=== PATIENT | female | born 1940 | race Caucasian/White ===

== ENCOUNTER → 2018-10-06 | Outpatient (REF) | payer MEDICARE, BC, SELFPAY ==
[2018-10-06 08:01] LABS: Hematocrit 29.8 % (37-47); Hemoglobin 9.9 g/dl (12.0-15.0); Mean Corp Hgb Conc 33.2 g/gl (32-36); Mean Corpuscular Volume 102.4 fL (81-99); Mean Platelet Vol. 8.3 fl (6.2-12.0); Platelet Count 419 K/mm3 (150-450); RBC Distribution Width CV 13.9 % (11.6-14.6); RBC Distribution Width SD 49.8 fl (35.1-43.9); Red Blood Count 2.91 M/mm3 (4.2-5.4); White Blood Count 5.1 K/mm3 (4.4-11.0)
[2018-10-06 08:16] LABS: Scan Indicated on CBC? Y/N NO
== END | disposition home or self-care (01) ==
PROVIDERS: Visit Provider Family Medicine
DX: Z79.899 Other long term (current) drug therapy (principal)
CPT/HCPCS: 36415; 85027

== ENCOUNTER → 2018-11-04 | Outpatient (REF) | payer MEDICARE, BC, SELFPAY ==
[2018-11-04 11:19] LABS: Hematocrit 39.5 % (37-47); Hemoglobin 12.8 g/dL (12.0-15.0); Mean Corp Hgb Conc 32.4 g/dL (32-36); Mean Corpuscular Hgb 33.8 pg (27.0-32.0); Mean Corpuscular Volume 104.2 fL (81-99); Mean Platelet Vol. 9.2 fl (6.2-12.0); Platelet Count 332 K/mm3 (150-450); RBC Distribution Width CV 12.2 % (11.6-14.6); RBC Distribution Width SD 47.1 fl (35.1-43.9); Red Blood Count 3.79 M/mm3 (4.2-5.4); White Blood Count 4.6 K/mm3 (4.4-11.0)
== END | disposition home or self-care (01) ==
PROVIDERS: Visit Provider Family Medicine
DX: Z79.899 Other long term (current) drug therapy (principal)
CPT/HCPCS: 36415; 85027

== ENCOUNTER 2018-11-07 00:18 | Emergency (ER) | payer MEDICARE, BC, SELFPAY ==
[2018-11-07 00:19] VITALS: BP 150/75; PULSE 71; RESP 20; TEMP 36.5; O2SAT 98; BMI 20.9
[2018-11-07] MEDS: Nitroglycerin SL (ED/IMG/CATH) 0.4 MG TABLET SUBLINGUAL (00:30)
--- NOTE | 2018-11-07 00:30 | EKG12_ITS ---
Test Reason : CP Blood Pressure : / mmHG Vent. Rate : 072 BPM Atrial Rate : 072 BPM P-R Int : 150 ms QRS Dur : 084 ms QT Int : 392 ms P-R-T Axes : 073 064 071 degrees QTc Int : 429 ms Normal sinus rhythm Voltage criteria for left ventricular hypertrophy Nonspecific ST abnormality Abnormal ECG Confirmed by JOHN LOCKETT, ALVARO ([id number]), senior technical editor VANNESA AVERY ([id number]) on 11/09/2018 10:43:35 AM Referred By: ANEESH Confirmed By:ALVARO LOPEZ MD
--- NOTE | 2018-11-07 00:30 | RAD_ITS ---
HISTORY:CPChest PainRAD - Chest CPChest PainRAD - Chest EXAM: XR Chest 1 View: COMPARISON: None FINDINGS: # of images incl. paperwork: 2 LINES/DEVICES: None. LUNGS: Radiographically clear. No consolidation, edema or effusion. No pneumothorax. MEDIASTINUM AND CARDIOVASCULAR STRUCTURES: Cardiac silhouette not enlarged. BONES AND SOFT TISSUES: Unremarkable. RAD/Chest 1 View (Portable) IMPRESSION: No radiographic evidence of acute cardiopulmonary disease. at 0108 Reported and signed by: Anastasia Ramos DO Electronically Signed: Anastasia Ramos DO at 1:07 EDT Tel , Service support ,
--- NOTE | 2018-11-07 00:40 | ED.VIS.GEN ---
History of Present Illness Chief Complaint: Chest Pain Informant: Patient Onset: Yesterday, Hours Context: Sudden Onset Timing: Continuous Quality: Sharp pain like a rock Location: Lower midsternal with radiation to pubis Current Severity: Moderate Maximum Severity: Moderate Worsened by: Palpation Relieved by: Decreased from 7-5 with 1 nitro administered by EMS Associated Symptoms: Possibly shortness of breath and reproducible Narrative: Patient is an elderly woman who is a poor informant. She denied problems with cholesterol or heart. Per records that accompanied her she has history of atherosclerotic disease of the [place] coronary vessels and elevated cholesterol. She reports the pain improved after sublingual nitro x1 administered by EMS prior to arrival. She states the pain went from a 7-5. She denied nausea, vomiting, diaphoresis or shortness of breath. She is stated she painted because of the pain. She denies food intolerance. She denies pain in her back. She denies dysuria, frequency, urgency or hematuria. She states she is status post cholecystectomy. She denies respiratory symptoms i.e. rhinorrhea, congestion, postnasal drainage, cough or pleuritic pain. She is presently on Eliquis for DVT that was diagnosed 1 to 2 months ago. Prior similar symptoms: No Recent Illness/Hospitalization: No - Past Medical History (1) Hypercholesterolemia Status: Acute (2) Atherosclerotic heart disease of [place] coronary artery with angina pectoris Status: Acute (3) History of Parkinson's disease Status: Acute (4) History of osteoporosis Status: Acute (5) History of DVT (deep vein thrombosis) Status: Acute Past Medical History - Allergies and Home Meds Allergies/Adverse Reactions: Allergies cyclobenzaprine [From Flexeril] Allergy (Verified 11/07/18 00:27) Unknown oxycodone Allergy (Verified 11/07/18 00:27) Vomiting propoxyphene [From Darvon] Allergy (Verified 11/07/18 00:27) Vomiting Primary Care Physician: NOT,DEFINED [NON-STAFF] - Past Medical History: - - Previously documented Surgical History: cholecystectomy Lives: Alone, Residential Smoking Status: Never smoker Alcohol: None Drugs: None Review of Systems General: Denies: Chills, Fever, Sweats Eyes: Denies: Visual changes - bilaterally, Diplopia ENT: Denies: Bilateral ear pain, Rhinorrhea, Sore throat Cardiovascular: Reports: Chest pain. Denies: Palpitations, Heart racing Respiratory: Denies: Dyspnea, Cough, Dyspnea on exertion, Orthopnea, Paroxysmal nocturnal dyspnea Gastrointestinal: Reports: Abdominal pain. Denies: Nausea, Vomiting, Diarrhea, Melena, Hematochezia Genitourinary: Denies: Dysuria, Hematuria, Frequency Musculoskeletal: Denies: Back pain, Extremity Pain Skin: Denies: Rash, Wounds Neurological: Denies: Headache, Weakness, Numbness Hematologic: Denies: Easy bruising, Easy bleeding Physical Exam Vital Signs/Narrative: Vital Signs Temp Pulse Resp BP Pulse Ox 11/07/18 00:19 97.7 F L 71 20 H 150/75 H 98 Inital Vital Signs reviewed: Yes General: Well nourished, Well developed, No Acute Distress Head: Normocephalic, Atraumatic Eyes: Perrl, EOMI. Negative for: Pale conjunctiva, Scleral icterus ENT: Moist mucous membranes, No rhinorrhea Neck: Supple, Nontender Cardiovascular: Regular rate, Regular rhythm, No murmurs, Normal S1, Normal S2, - - Heart tones are distant Respiratory: No distress, CTA bilaterally, Chest nontender Abdomen: Soft, Nontender, Nondistended, Normal bowel sounds Back: Nontender, Normal Inspection Extremities: Nontender, No edema. Negative for: Calf Tenderness Skin: Normal color, No rash Neurological: Alert, Oriented x3, Cranial nerves II-XII grossly intact, Normal Strength, Normal Sensation Psychological: Normal affect, Normal Mood Diagnostic/Tx/Re-eval Chest X-Ray - ED: 1 View, Unchanged, Normal, Heart, Mediastinum, Bony Structures, No Acute Disease, Chronic Changes Impressions Chest X-Ray 11/07/18 00:30 IMPRESSION: No radiographic evidence of acute cardiopulmonary disease. at 0108 Reported and signed by: Anastasia Ramos DO Electronically Signed: Anastasia Ramos DO at 1:07 EDT Tel , Service support , 11/07/18 00:30 Chest 1 View (Portable) [RAD] Stat Laboratory Results 11/07/18 11/07/18 00:35 00:35 WBC 5.4 RBC 3.48 L Hgb 11.7 L Hct 35.5 L MCV 102.0 H MCH 33.6 H MCHC 33.0 RDW Std Deviation 45.4 H RDW Coeff of Bryanna 12.1 Plt Count 294 MPV 9.0 Immature Gran % (Auto) 0.400 Neut % (Auto) 59.0 Lymph % (Auto) 25.7 [place] % (Auto) 10.1 H Eos % (Auto) 3.9 Baso % (Auto) 0.9 Absolute Neuts (auto) 3.2 Absolute Lymphs (auto) 1.40 Nucleated RBC % 0 Sodium 134 L Potassium 5.2 H Chloride 104 Carbon Dioxide 24.0 Anion Gap 6 BUN 21 H Creatinine 0.63 Estim Creat Clear Calc 39.39 Est GFR (MDRD) Af Amer 117 Est GFR (MDRD) Non-Af 97 BUN/Creatinine Ratio 33.3 H Glucose 103 Calcium 9.0 Troponin I < 0.015 3-hour troponin is less than 0.015 with a delta of 0. Patient's presentation very atypical. Will discharge back to nursing facility - EKG Initial EKG Interpretation: Sinus Rhythm - Ventricular rate is 72. CO interval is 150 ms. QRS duration is 84 ms. QT duration 392 ms. There is decreased voltage. There is evidence of LVH by voltage criteria. Prior: Unchanged - Medical Decision Making With history of coronary disease and risk factors will obtain EKG and troponin to assess her chest pain. She has a atypical presentation especially since she states the pain radiates to the pubis. EKG, portable chest x-ray and blood work was obtained to assess her chest pain. Patient is atypical. She was administered additional dose of nitroglycerin since she reported improvement after first nitro that was given by paramedics prior to arrival. I was informed by nursing staff that her pain resolved prior to her menstruation nitroglycerin. She is now complaining of pelvic low back pain. Patient does not have an abdominal bruit noticed or pulsatile mass. Pulses in the lower extremity are symmetric. Patient's work-up is unremarkable. 3-hour troponin is normal with a delta of 0. Will discharge to nursing facility. ED Disposition - Plan for ED Patient: Disposition: Long-Term Facility Diagnosis: Central chest pain, Abdominal pain of unknown etiology Instructions: CHEST PAIN, Uncertain Cause Referrals: NOT,DEFINED [NON-STAFF] - Additional Instructions: If you have recurrent chest pain and he becomes short of breath and or sweaty return to the emergency department. Otherwise, follow-up with your primary care doctor
[2018-11-07 00:43] VITALS: PULSE 70; RESP 22; O2SAT 99
[2018-11-07 00:46] LABS: Absolute Neutrophil Count 3.2 X10^3/uL (2.0-7.7); Basophil# 0.05 X10^3/uL; Basophil% 0.9 % (0-1); Eosinophil# 0.21 X10^3/uL; Eosinophils% 3.9 % (0-5); Hematocrit 35.5 % (37-47); Hemoglobin 11.7 g/dL (12.0-15.0); Lymphocyte % 25.7 % (19-41); Mean Corpuscular Hgb 33.6 pg (27.0-32.0); Monocyte# 0.55 X10^3/uL; Monocyte% 10.1 % (0-10); NRBC Flagged by Analyzer 0 % (0-5); Neutrophil # 3.21 X10^3/uL (2.7-7.7); Platelet Count 294 K/mm3 (150-450); RBC Distribution Width CV 12.1 % (11.6-14.6); RBC Distribution Width SD 45.4 fl (35.1-43.9); Red Blood Count 3.48 M/mm3 (4.2-5.4); White Blood Count 5.4 K/mm3 (4.4-11.0)
[2018-11-07] MEDS: Acetaminophen 325 MG Tablet 650 MG PO (00:47)
--- NOTE | 2018-11-07 00:56 | ED.RN ---
PER PT REQUEST, ATTEMPTED TO CONTACT PT SON
[2018-11-07 01:04] LABS: Anion Gap 6 (5-15); BUN 21 mg/dL (7-18); BUN/Creat Ratio 33.3 RATIO (10-20); Chloride 104 mmol/L (98-107); Creatinine, Serum 0.63 mg/dL (0.55-1.02); EST Glomerular Filtration Rate 97 mL/min (>60); Est Glom Filt Rate - Afr Amer 117 mL/min (>60); Estimated Creatinine Clearance 39.39 ml/min; Glucose 103 mg/dL (74-106); Potassium 5.2 mmol/L (3.5-5.1); Sodium Level 134 mmol/L (136-145)
[2018-11-07 02:49] VITALS: BP 122/54; PULSE 64; RESP 15; O2SAT 100
--- NOTE | 2018-11-07 04:28 | ED.RN ---
REPORT CALLED TO VANNESA @ [facility]
[2018-11-07 05:28] VITALS: BP 136/72; PULSE 60; RESP 19; O2SAT 98
== END 2018-11-07 05:29 | disposition skilled nursing facility (03) ==
PROVIDERS: Emergency Provider Emergency Medicine; Family Provider Family Medicine; PCP Family Medicine
DX: R07.89 Other chest pain (principal); R10.9 Unspecified abdominal pain; E78.00 Pure hypercholesterolemia, unspecified; I25.10 Atherosclerotic heart disease of native coronary artery without angina pectoris; G20 Parkinson's disease; Z86.718 Personal history of other venous thrombosis and embolism; Z79.02 Long term (current) use of antithrombotics/antiplatelets; Z79.899 Other long term (current) drug therapy
CPT/HCPCS: 71045; 80048; 84484; 85025; 93005; 99285; J7030; A4216

== ENCOUNTER → 2018-11-09 07:10 | Outpatient (REF) | payer MEDICARE, BC, SELFPAY ==
[2018-11-09 09:05] LABS: Vitamin B12 439 pg/mL (211-911)
== END ==
PROVIDERS: Visit Provider Family Medicine
DX: G20 Parkinson's disease (principal); M41.9 Scoliosis, unspecified; M19.90 Unspecified osteoarthritis, unspecified site
CPT/HCPCS: 36415; 82607; 82746

== ENCOUNTER → 2018-12-06 05:00 | Outpatient (REF) | payer MEDICARE, BC, SELFPAY ==
[2018-11-07 00:19] VITALS: BMI 20.9
[2018-12-06 14:17] LABS: Hematocrit 37.2 % (37-47); Mean Corp Hgb Conc 32.3 g/dL (32-36); Mean Corpuscular Hgb 32.6 pg (27.0-32.0); Mean Corpuscular Volume 101.1 fL (81-99); Mean Platelet Vol. 9.1 fl (6.2-12.0); Platelet Count 257 K/mm3 (150-450); RBC Distribution Width CV 11.9 % (11.6-14.6); RBC Distribution Width SD 44.2 fl (35.1-43.9); Red Blood Count 3.68 M/mm3 (4.2-5.4)
== END ==
PROVIDERS: Visit Provider Family Medicine
DX: G20 Parkinson's disease (principal); Z79.899 Other long term (current) drug therapy
CPT/HCPCS: 36415; 85027

== ENCOUNTER → 2019-01-04 16:30 | Outpatient (REF) | payer MEDICARE, BC, SELFPAY ==
[2019-01-04 17:06] LABS: Absolute Lymphocyte Count 1.46 X10^3/uL (0.83-4.51); Absolute Neutrophil Count 3.3 X10^3/uL (2.0-7.7); Basophil# 0.04 X10^3/uL; Basophil% 0.7 % (0-1); Eosinophil# 0.22 X10^3/uL; Eosinophils% 3.9 % (0-5); Hematocrit 41.4 % (37-47); Hemoglobin 13.6 g/dL (12.0-15.0); Lymphocyte # 1.46 X10^3/ul (4.0); Lymphocyte % 25.9 % (19-41); Mean Corp Hgb Conc 32.9 g/dL (32-36); Mean Corpuscular Hgb 32.9 pg (27.0-32.0); Mean Platelet Vol. 9.2 fl (6.2-12.0); Monocyte# 0.58 X10^3/uL; Monocyte% 10.3 % (0-10); NRBC Flagged by Analyzer 0 % (0-5); Neutrophil # 3.33 X10^3/uL (2.7-7.7); Platelet Count 280 K/mm3 (150-450); RBC Distribution Width CV 11.9 % (11.6-14.6); RBC Distribution Width SD 43.6 fl (35.1-43.9); Red Blood Count 4.14 M/mm3 (4.2-5.4); White Blood Count 5.6 K/mm3 (4.4-11.0)
[2019-01-04 17:36] LABS: AST(SGOT) 20 U/L (15-37); Alanine Aminotransfer ALT/SGPT 12 U/L (13-56); Albumin, Serum 3.7 g/dL (3.2-5.0); Alkaline Phosphatase 121 U/L (45-117); Anion Gap 7 (5-15); BUN 19 mg/dL (7-18); BUN/Creat Ratio 19.9 RATIO (10-20); Calcium,Total 8.8 mg/dL (8.5-10.1); Chloride 103 mmol/L (98-107); Creatinine, Serum 0.95 mg/dL (0.55-1.02); EST Glomerular Filtration Rate 60 mL/min (>60); Est Glom Filt Rate - Afr Amer 73 mL/min (>60); Globulin 3.6 g/dL (2.2-4.2); Glucose 94 mg/dL (74-106); Potassium 4.1 mmol/L (3.5-5.1); Protein, Total 7.3 g/dL (6.4-8.2); Sodium Level 139 mmol/L (136-145)
== END ==
PROVIDERS: Visit Provider Family Medicine
DX: R53.83 Other fatigue (principal); R60.9 Edema, unspecified; G20 Parkinson's disease; Z79.899 Other long term (current) drug therapy
CPT/HCPCS: 36415; 80053; 85025

== ENCOUNTER → 2019-02-06 05:00 | Outpatient (REF) | payer MEDICARE, BC, SELFPAY ==
[2019-02-06 08:06] LABS: Hemoglobin 11.5 g/dL (12.0-15.0); Mean Corp Hgb Conc 32.9 g/dL (32-36); Mean Corpuscular Hgb 31.9 pg (27.0-32.0); Mean Corpuscular Volume 97.2 fL (81-99); Mean Platelet Vol. 9.2 fl (6.2-12.0); Platelet Count 215 K/mm3 (150-450); RBC Distribution Width SD 45.7 fl (35.1-43.9); White Blood Count 3.6 K/mm3 (4.4-11.0)
== END ==
PROVIDERS: Visit Provider Family Medicine
DX: E78.5 Hyperlipidemia, unspecified (principal)
CPT/HCPCS: 36415; 85027

== ENCOUNTER → 2019-03-07 05:00 | Outpatient (REF) | payer MEDICARE, BC, SELFPAY ==
[2019-03-07 08:00] LABS: Hematocrit 36.7 % (37-47); Mean Corp Hgb Conc 32.7 g/dL (32-36); Mean Corpuscular Hgb 32.4 pg (27.0-32.0); Mean Corpuscular Volume 99.2 fL (81-99); Mean Platelet Vol. 9.1 fl (6.2-12.0); Platelet Count 270 K/mm3 (150-450); RBC Distribution Width CV 13.6 % (11.6-14.6); RBC Distribution Width SD 49.5 fl (35.1-43.9); White Blood Count 3.8 K/mm3 (4.4-11.0)
== END ==
PROVIDERS: Visit Provider Family Medicine
DX: I82.409 Acute embolism and thrombosis of unspecified deep veins of unspecified lower extremity (principal); Z79.899 Other long term (current) drug therapy
CPT/HCPCS: 36415; 85027

== ENCOUNTER → 2019-06-28 | Outpatient (CLI) | payer MEDICARE, BC, SELFPAY | END | disposition home or self-care (01) | PROVIDERS: PCP Family Medicine; Referring Provider Podiatrist; Visit Provider Podiatrist | DX: L97.529 Non-pressure chronic ulcer of other part of left foot with unspecified severity (principal) | CPT/HCPCS: 87070; 87075; 87205 ==

== ENCOUNTER → 2019-07-25 16:30 | Outpatient (REF) | payer MEDICARE, BC, SELFPAY ==
[2019-07-25 18:20] LABS: Mucous, Urine 0 SEEN /hpf (<or=2+); Red Blood Cells-Urine 0 SEEN /hpf (0-5); Squamous Epithelial Cells - UA 0 SEEN /hpf (5-10); White Blood Cells 0 SEEN /hpf (0-5)
[2019-07-25 18:54] LABS: Color, Urine Yellow (Yellow); Glucose, Dipstick Normal (Normal); Ketone-Dipstick 5 mg/dl (Negative); Leukocyte Esterase-Dipstick Negative /ul (Negative); Nitrite-Dipstick Negative (Negative); Occult Blood-Urine Negative /ul (Negative); Protein-Dipstick 30 mg/dl (Negative); Specific Gravity, Urine 1.015 (1.002-1.030); Urine Bilirubin Dipstick Negative (Negative); Urine Clarity Clear (Clear); Urine Urobilinogen Normal (Normal)
[2019-07-25 19:41] LABS: Bacteria RARE /hpf (None Seen); Calcium Oxalate Crystals Ur 1+ /hpf (<or=2+)
== END ==
PROVIDERS: PCP Family Medicine; Referring Provider Family Medicine; Visit Provider Family Medicine
DX: N39.0 Urinary tract infection, site not specified (principal); R44.3 Hallucinations, unspecified
CPT/HCPCS: 81001; 87086; 87088

== ENCOUNTER → 2019-09-08 11:30 | Outpatient (REF) | payer MEDICARE, BC, SELFPAY ==
[2019-09-08 12:33] LABS: Hematocrit 39.7 % (37-47); Hemoglobin 12.9 g/dL (12.0-15.0); Mean Corp Hgb Conc 32.5 g/dL (32-36); Mean Corpuscular Hgb 33.5 pg (27.0-32.0); Mean Corpuscular Volume 103.1 fL (81-99); Mean Platelet Vol. 9.3 fl (6.2-12.0); Platelet Count 282 K/mm3 (150-450); RBC Distribution Width CV 11.9 % (11.6-14.6); RBC Distribution Width SD 44.5 fl (35.1-43.9); Red Blood Count 3.85 M/mm3 (4.2-5.4); White Blood Count 4.8 K/mm3 (4.4-11.0)
== END ==
PROVIDERS: Visit Provider Family Medicine
DX: E78.5 Hyperlipidemia, unspecified (principal)
CPT/HCPCS: 85027

== ENCOUNTER → 2019-10-09 08:30 | Outpatient (REF) | payer MEDICARE, BC, SELFPAY ==
[2019-10-09 10:26] LABS: Hematocrit 38.3 % (37-47); Hemoglobin 12.3 g/dL (12.0-15.0); Mean Corp Hgb Conc 32.1 g/dL (32-36); Mean Corpuscular Hgb 33.2 pg (27.0-32.0); Mean Corpuscular Volume 103.2 fL (81-99); Mean Platelet Vol. 9.5 fl (6.2-12.0); Platelet Count 261 K/mm3 (150-450); RBC Distribution Width CV 11.8 % (11.6-14.6); RBC Distribution Width SD 44.5 fl (35.1-43.9); Red Blood Count 3.71 M/mm3 (4.2-5.4); White Blood Count 4.2 K/mm3 (4.4-11.0)
== END ==
PROVIDERS: PCP Family Medicine; Visit Provider Family Medicine
DX: Z79.899 Other long term (current) drug therapy (principal)
CPT/HCPCS: 85027

== ENCOUNTER → 2019-11-02 11:00 | Outpatient (REF) | payer MEDICARE, BC, SELFPAY ==
[2019-11-02 12:33] LABS: Hematocrit 42.2 % (37-47); Hemoglobin 13.3 g/dL (12.0-15.0); Mean Corp Hgb Conc 31.5 g/dL (32-36); Mean Corpuscular Hgb 32.9 pg (27.0-32.0); Mean Corpuscular Volume 104.5 fL (81-99); Mean Platelet Vol. 9.5 fl (6.2-12.0); Platelet Count 294 K/mm3 (150-450); RBC Distribution Width CV 12.1 % (11.6-14.6); RBC Distribution Width SD 46.9 fl (35.1-43.9); Red Blood Count 4.04 M/mm3 (4.2-5.4); White Blood Count 5.2 K/mm3 (4.4-11.0)
== END ==
PROVIDERS: PCP Family Medicine; Referring Provider Family Medicine; Visit Provider Family Medicine
DX: R53.83 Other fatigue (principal); Z79.899 Other long term (current) drug therapy
CPT/HCPCS: 85027

== ENCOUNTER → 2019-11-29 08:00 | Outpatient (REF) | payer MEDICARE, BC, SELFPAY ==
[2019-11-29 09:21] LABS: Color, Urine Yellow (Yellow); Glucose, Dipstick Normal (Normal); Ketone-Dipstick Negative (Negative); Leukocyte Esterase-Dipstick Negative /ul (Negative); Nitrite-Dipstick Negative (Negative); Occult Blood-Urine Negative /ul (Negative); Protein-Dipstick Negative (Negative); Urine Bilirubin Dipstick Negative (Negative); Urine Clarity Sl. Cloudy (Clear); Urine Urobilinogen Normal (Normal)
== END ==
PROVIDERS: PCP Family Medicine; Visit Provider Family Medicine
DX: R35.0 Frequency of micturition (principal); R41.0 Disorientation, unspecified
CPT/HCPCS: 81002; 87086; 87088; 87186

== ENCOUNTER 2020-01-16 14:19 | Inpatient (IN) | payer MEDICARE, BC, SELFPAY ==
[2020-01-16] VITALS (7 sets, daily range): BP systolic 114–176; BP diastolic 74–94; PULSE 63–89; RESP 15–26; TEMP 36.5–36.7; O2SAT 95–97; BMI 22.6; BMI 20.9; BMI 55.4
--- NOTE | 2020-01-16 14:49 | CT_ITS ---
STUDY: CT BRAIN WITHOUT CONTRAST REASON FOR EXAM: Female, 79 years old. HEAD INJURY FROM FALL, CHRONIC EMBOLISMS AND THROMBOSIS RADIATION DOSAGE (If Supplied By Facility): CTDIvol = ( 60.81 ) mGy, DLP = ( 1112.69 ) mGycm TECHNIQUE: Transaxial CT imaging of the brain was performed without administration of intravenous contrast material. Individualized dose optimization techniques were used for this CT. COMPARISON: No relevant priors. FINDINGS: Normal soft tissue structures. Normal calvarium. There is mild cerebral atrophy with widening of the extra-axial spaces and ventricular dilatation. There are areas of decreased attenuation within the white matter tracts of the supratentorial brain, consistent with microvascular disease changes. Normal basal ganglia and thalami. Normal brainstem. Normal cerebellum. There is no intracranial hemorrhage. There are no findings of an acute ischemic infarction. Normal visualized paranasal sinuses. CT/Brain/Head without Contrast IMPRESSION: Chronic involutional changes of the brain. Electronically Signed: Leticia Treviño, at 16:00 EDT Tel , Service support ,
--- NOTE | 2020-01-16 14:50 | EKG12_ITS ---
Test Reason : Blood Pressure : / mmHG Vent. Rate : 065 BPM Atrial Rate : 065 BPM P-R Int : 150 ms QRS Dur : 090 ms QT Int : 394 ms P-R-T Axes : 073 041 061 degrees QTc Int : 409 ms Normal sinus rhythm Moderate voltage criteria for LVH, may be normal variant Borderline ECG Confirmed by HERMELINDA LOCKETT, CESAR ([id number]), copy editor VANNESA AVERY ([id number]) on 01/17/2020 9:47:58 AM Referred By: CL Confirmed By:CESAR SHEN MD
--- NOTE | 2020-01-16 14:51 | RAD_ITS ---
STUDY: X-RAY - PELVIS AND LEFT HIP REASON FOR EXAM: Female, 79 years old. FALL, LEFT HIP PAIN TECHNIQUE: 3 views of the pelvis and hip. COMPARISON: None. FINDINGS: There is a non-specific bowel gas pattern. Normal visualized soft tissue structures. There is narrowing with cortical sclerosis and osteophyte formation of the sacroiliac joint consistent with degenerative osteoarthritic changes. Normal bilateral superior and inferior pubic rami. There are degenerative changes of the pubic symphysis with articular narrowing and sclerosis. Normal bilateral ischial tuberosities. There is an impacted subcapital left chronic fracture. RAD/HIP, UNI W/ Pelvis 2-3 Views IMPRESSION: There is an impacted subcapital left chronic fracture. Electronically Signed: Leticia Treviño, at 16:06 EDT Tel , Service support ,
--- NOTE | 2020-01-16 14:52 | ED.VIS.GEN ---
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 Patient became unsteady while on her walker and fell. Unclear of head injury. Patient complaining of left hip pain. Worse with movement. Difficult history of present illness to obtain given the patient's significant dementia and Parkinson's disease. Not currently on anticoagulation. Past Medical History - Allergies and Home Meds Allergies/Adverse Reactions: Allergies cyclobenzaprine [From Flexeril] Allergy (Verified 01/16/20 14:21) NEEDS FOLLOW-UP oxycodone Allergy (Verified 01/16/20 14:21) NEEDS FOLLOW-UP propoxyphene [From Darvon] Allergy (Verified 01/16/20 14:21) NEEDS FOLLOW-UP Past Medical History: - - HTN, CAD, dementia, parkinsons Lives: Alf Smoking Status: Never smoker Alcohol: None Drugs: None - Family History Maternal Family History: Reports: No pertinent history Paternal Family History: Reports: No pertinent history Review of Systems General: Denies: Chills, Fever, Sweats Eyes: Denies: Visual changes - bilaterally, Diplopia ENT: Denies: Rhinorrhea, Sore throat Cardiovascular: Denies: Chest pain, Palpitations Respiratory: Denies: Dyspnea, Cough, Dyspnea on exertion Gastrointestinal: Denies: Abdominal pain, Nausea, Vomiting, Diarrhea, Melena, Hematochezia Genitourinary: Denies: Dysuria, Hematuria, Frequency Musculoskeletal: Reports: Arthralgias. Denies: Back pain, Extremity Pain Skin: Denies: Rash, Wounds Neurological: Denies: Headache, Weakness, Numbness Physical Exam Vital Signs/Narrative: Vital Signs Temp Pulse Resp BP Pulse Ox 01/16/20 14:24 68 15 114/89 H 96 01/16/20 14:21 97.7 F L 72 16 114/89 H 96 General: Well nourished, Well developed, No Acute Distress Head: Normocephalic, Atraumatic Eyes: Perrl, EOMI ENT: Moist mucous membranes, No rhinorrhea Neck: Supple, Nontender Cardiovascular: Regular rate, Regular rhythm, No murmurs Respiratory: No distress, CTA bilaterally, Chest nontender Abdomen: Soft, Nontender, Nondistended, Normal bowel sounds Back: Nontender, Normal Inspection Extremities: No edema, - - TTP in the left hip. Skin: Normal color, No rash Neurological: Alert, Cranial nerves II-XII grossly intact, Normal Strength, Normal Sensation Psychological: Normal affect, Normal Mood Diagnostic/Tx/Re-eval Chest X-Ray - ED: 1 View, No Acute Disease Clinical Impression(s) from Imaging Studies Brain CT 01/16/20 14:49 IMPRESSION: Chronic involutional changes of the brain. Electronically Signed: Leticia Treviño, at 16:00 EDT Tel , Service support , Hip/Pelvis X-Ray 01/16/20 14:51 IMPRESSION: There is an impacted subcapital left chronic fracture. Electronically Signed: Leticia Treviño at 16:06 EDT Tel , Service support , Cervical Spine CT 01/16/20 14:54 IMPRESSION: Multilevel degenerative changes, as described above. Electronically Signed: Leticia Treviño at 16:04 EDT Tel , Service support , Chest X-Ray 01/16/20 15:45 IMPRESSION: Degenerative changes, as described above. No demonstrated acute cardiopulmonary process. Electronically Signed: Leticia Treviño at 16:06 EDT Tel , Service support , Lower Extremity CT 01/16/20 18:45 IMPRESSION: Findings consistent with impacted subcapital fracture of left femoral neck without callus formation suggestive of recent injury.. Clinical correlation recommended Electronically Signed: Galdino Armando MD at 19:17 EDT , Service support , Laboratory Data 10/06/20 10/06/20 10/06/20 15:10 15:10 18:18 WBC 4.3 L RBC 3.63 L Hgb 11.9 L Hct 37.5 MCV 103.3 H MCH 32.8 H MCHC 31.7 L RDW Std Deviation 46.1 H RDW Coeff of Bryanna 12.1 Plt Count 248 MPV 9.2 Immature Gran % (Auto) 0.900 Neut % (Auto) 65.3 Lymph % (Auto) 21.4 [place] % (Auto) 9.1 Eos % (Auto) 2.6 Baso % (Auto) 0.7 Absolute Neuts (auto) 2.8 Absolute Lymphs (auto) 0.92 Nucleated RBC % 0 Sodium 134 L Potassium 4.1 Chloride 101 Carbon Dioxide 29.0 Anion Gap 4 L BUN 19 H Creatinine 0.79 Estim Creat Clear Calc 42.00 Est GFR (MDRD) Af Amer 90 Est GFR (MDRD) Non-Af 74 BUN/Creatinine Ratio 24.0 H Glucose 100 Calcium 8.7 Total Bilirubin 0.40 AST 23 ALT 13 Alkaline Phosphatase 92 Troponin I < 0.015 Total Protein 7.0 Albumin 3.8 Globulin 3.2 Albumin/Globulin Ratio 1.2 Urine Color Yellow Urine Clarity Sl. Cloudy Urine pH 7.0 Ur Specific [place] 1.010 Urine Protein Negative Urine Glucose (UA) Normal Urine Ketones Negative Urine Occult Blood Negative Urine Nitrite Negative Urine Bilirubin Negative Urine Urobilinogen Normal Ur Leukocyte Esterase Negative Urine RBC 0 SEEN Urine WBC 0 SEEN Ur Squamous Epith Cells 0-5 SEEN Urine Bacteria 0 SEEN Urine Mucus 0 SEEN - Rhythm Strip Rhythm Strip: Sinus Rhythm Rate: 65 Ectopy: None - EKG Initial EKG Interpretation: Sinus Rhythm - Normal sinus rhythm at 65 bpm. NH interval of 150 ms. QTC of [address] changes. LVH. No evidence of ST elevation or depression at this time. - Medical Decision Making Patient appears well nontoxic. X-ray concerning for chronic left hip fracture. No documented hip fracture before in the past. Spoke with orthopedic surgery who requested CT. CT does show acute impacted subcapital hip fracture. Patient was given small dose of narcotic pain medication. Other lab work within normal limits. CT brain and cervical spine negative. Patient will be admitted to hospitalist with plan for surgery tomorrow at 2 PM. Patient agreeable this plan and admitted in stable condition. Impression: 1. Left hip fracture 2. Fall 3. History of Parkinson's with dementia ED Disposition - Plan for ED Patient:
--- NOTE | 2020-01-16 14:54 | CT_ITS ---
STUDY: CT CERVICAL SPINE WITHOUT CONTRAST REASON FOR EXAM: Female, 79 years old. HEAD INJURY FROM FALL, HX-CHRONIC EMBOLISMS AND THROMBOSIS OF DEEP VEINS RADIATION DOSAGE (If Supplied By Facility): CTDIvol = ( 16.20 ) mGy, DLP = ( 319.84 ) mGycm TECHNIQUE: High resolution transaxial imaging was performed without contrast material. Sagittal and coronal images were reconstructed. Individualized dose optimization techniques were used for this CT. COMPARISON: None FINDINGS: Normal craniovertebral junction. Normal anterior atlantoaxial articulation. Normal odontoid process. Normal cervical lordosis. Normal vertebral bodies and posterior osseous elements. C2-3: Normal endplates. Normal disc height and morphology. Normal central canal and intervertebral neuroforamina. C3-4: Endplate spondylosis. Central and paracentral disc bulge. Degenerative changes of the bilateral facet joints and uncovertebral joints. Moderate narrowing of the central canal and the bilateral intervertebral neural foramina. C4-5: Endplate spondylosis. Central and paracentral disc bulge. 3 mm spondylolisthesis. Degenerative changes of the bilateral facet joints and uncovertebral joints. Moderate narrowing of the central canal and the bilateral intervertebral neural foramina. C5-6: Endplate spondylosis. Central and paracentral disc bulge. Degenerative changes of the bilateral facet joints and uncovertebral joints. Moderate narrowing of the central canal and the bilateral intervertebral neural foramina. C6-7: Endplate spondylosis. Central and paracentral disc bulge. Degenerative changes of the bilateral facet joints and uncovertebral joints. Moderate narrowing of the central canal and the bilateral intervertebral neural foramina. C7-T1: Endplate spondylosis. 4 mm posterior listhesis. Degenerative changes of the bilateral facet joints and uncovertebral joints. No significant narrowing of the central canal and the bilateral intervertebral neural foramina. Normal visualized soft tissue structures. CT/Spine Cervical without Contras IMPRESSION: Multilevel degenerative changes, as described above. Electronically Signed: Leticia Treviño, at 16:04 EDT Tel , Service support ,
--- NOTE | 2020-01-16 14:57 | NURSING ---
NO OLD EKGS
[2020-01-16 15:31] LABS: Absolute Lymphocyte Count 0.92 X10^3/uL (0.83-4.51); Absolute Neutrophil Count 2.8 X10^3/uL (2.0-7.7); Basophil# 0.03 X10^3/uL; Basophil% 0.7 % (0-1); Eosinophil# 0.11 X10^3/uL; Eosinophils% 2.6 % (0-5); Hematocrit 37.5 % (37-47); Hemoglobin 11.9 g/dL (12.0-15.0); Lymphocyte # 0.92 X10^3/ul (4.0); Lymphocyte % 21.4 % (19-41); Mean Corp Hgb Conc 31.7 g/dL (32-36); Mean Corpuscular Hgb 32.8 pg (27.0-32.0); Mean Corpuscular Volume 103.3 fL (81-99); Mean Platelet Vol. 9.2 fl (6.2-12.0); Monocyte# 0.39 X10^3/uL; Monocyte% 9.1 % (0-10); NRBC Flagged by Analyzer 0 % (0-5); Neutrophil # 2.81 X10^3/uL (2.7-7.7); Neutrophil % 65.3 % (47-70); Platelet Count 248 K/mm3 (150-450); RBC Distribution Width CV 12.1 % (11.6-14.6); RBC Distribution Width SD 46.1 fl (35.1-43.9); Red Blood Count 3.63 M/mm3 (4.2-5.4); White Blood Count 4.3 K/mm3 (4.4-11.0)
--- NOTE | 2020-01-16 15:45 | RAD_ITS ---
STUDY: X-RAY CHEST REASON FOR EXAM: Female, 79 years old. FALL, CONFUSION TECHNIQUE: Single AP portable view of the chest. COMPARISON: None. FINDINGS: The lungs are clear and expanded. There is no demonstrated pleural abnormality. Normal size heart. Normal mediastinum and margaret. Normal visualized pulmonary arteries. Normal visualized aortic arch and descending thoracic aorta. There are diffuse degenerative changes and levoscoliosis of the visualized thoracic spine. 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 There is no demonstrated abnormality of the visualized soft tissue structures of the upper abdomen. RAD/Chest 1 View (Portable) IMPRESSION: Degenerative changes, as described above. No demonstrated acute cardiopulmonary process. Electronically Signed: Leticia Treviño, at 16:06 EDT Tel , Service support ,
[2020-01-16 15:52] LABS: ALB/GLOB Ratio 1.2 RATIO (0.9-2.4); AST(SGOT) 23 U/L (15-37); Alanine Aminotransfer ALT/SGPT 13 U/L (13-56); Albumin, Serum 3.8 g/dL (3.2-5.0); Alkaline Phosphatase 92 U/L (45-117); Anion Gap 4 (5-15); BUN 19 mg/dL (7-18); Calcium,Total 8.7 mg/dL (8.5-10.1); Chloride 101 mmol/L (98-107); Creatinine, Serum 0.79 mg/dL (0.55-1.02); EST Glomerular Filtration Rate 74 mL/min (>60); Est Glom Filt Rate - Afr Amer 90 mL/min (>60); Globulin 3.2 g/dL (2.2-4.2); Glucose 100 mg/dL (74-106); Potassium 4.1 mmol/L (3.5-5.1); Sodium Level 134 mmol/L (136-145)
[2020-01-16] MEDS: fentaNYL 100 MCG/2 ML Ampul 50 MCG IV (18:10)
[2020-01-16] MEDS: Ondansetron 4 MG/2 ML Vial IV (18:10)
[2020-01-16] MEDS: CARBIDOPA/LEVODOPA CR 50/200 Tablet PO ×2 (18:11→23:22)
[2020-01-16 18:23] LABS: Bacteria 0 SEEN /hpf (None Seen); Mucous, Urine 0 SEEN /hpf (<or=2+); Red Blood Cells-Urine 0 SEEN /hpf (0-5); White Blood Cells 0 SEEN /hpf (0-5)
[2020-01-16 18:33] LABS: Color, Urine Yellow (Yellow); Glucose, Dipstick Normal (Normal); Ketone-Dipstick Negative (Negative); Leukocyte Esterase-Dipstick Negative /ul (Negative); Nitrite-Dipstick Negative (Negative); Occult Blood-Urine Negative /ul (Negative); Protein-Dipstick Negative (Negative); Urine Bilirubin Dipstick Negative (Negative); Urine Clarity Sl. Cloudy (Clear); Urine Urobilinogen Normal (Normal)
--- NOTE | 2020-01-16 18:45 | CT_ITS ---
CT of the left hip INDICATION: Trauma TECHNIQUE: CT of the left hip was performed in the axial projection without contrast followed by sagittal and coronal reconstructions. Radiographic technique was optimized to limit patient radiation dose. DLP was 390.66 FINDINGS: There is an acute impacted subcapital fracture of the left femoral neck with mild overlapping of fracture fragments. There is no appreciable callus formation findings suggestive of recent injury. CT/Extremity Lower without Contra IMPRESSION: Findings consistent with impacted subcapital fracture of left femoral neck without callus formation suggestive of recent injury.. Clinical correlation recommended Electronically Signed: Galdino Armando MD at 19:17 EDT , Service support ,
[2020-01-16 18:50] LABS: Squamous Epithelial Cells - UA 0-5 SEEN /hpf (5-10)
--- NOTE | 2020-01-16 20:13 | PCM.HP.STD ---
Problem List (1) Fracture of femoral neck, left Status: Acute (2) Debility Status: Chronic (3) Dementia Status: Chronic (4) Parkinsons disease Status: Chronic History of Present Illness Date of Admission: 01/16/20 Chief Complaint: Fall. The patient is a 79 year old F with past medical history as mentioned above presented to the emergency room because of fall. Patient is a resident of the [facility] was using her walker, tipped off and she fell on her left side. Immediately, she started having left hip pain, sharp pain, 7-9 out of 10 in severity, aggravated by movement and she could not stand up. She mentioned that she does have right hip pain as well. She denied prodromal symptoms such as dizziness, lightheadedness, chest pain, shortness of breath or syncope. She denied fever or chills. In the emergency department, her vital signs were stable. Routine blood work was remarkable for hemoglobin of 11.9 g/dL, which is chronic, otherwise Unremarkable. LFT was unremarkable. Urinalysis showed no evidence of infection. EKG revealed normal sinus rhythm, normal TN interval, normal QRS, normal QTC, no acute segment changes. Troponin was negative. Troponin was negative. Chest x-ray revealed hyperinflation of the right lung, could be due to position, no acute findings. CT scan brain showed no acute findings. X-ray of the pelvis and left hip revealed chronic left subcapital femoral neck fracture. CT scan of the left lower extremity revealed impacted subcapital fracture of the left femoral neck which is apparently acute. She is being admitted for acute traumatic impacted subcapital fracture of the left femoral neck for treatment. Past Medical History Past Medical History (Chronic Problems): Chronic Problems Debility (Chronic) Dementia (Chronic) Parkinsons disease (Chronic) Allergies cyclobenzaprine [From Flexeril] Allergy (Verified 01/16/20 14:21) NEEDS FOLLOW-UP oxycodone Allergy (Verified 01/16/20 14:21) NEEDS FOLLOW-UP propoxyphene [From Darvon] Allergy (Verified 01/16/20 14:21) NEEDS FOLLOW-UP Home Medications: Ambulatory Orders Medication Instructions Recorded Acetaminophen [Tylenol] 650 mg PO BID PRN PRN 01/16/20 Carbidopa/Levodopa [Carbidopa-Levo 1 tab PO 4X/DAY 01/16/20 ER 50-200 Tab] Cholecalciferol (VIT D3) [Vitamin 1,000 unit PO DAILY 01/16/20 D] Multivitamin [Flintstones] 1 ea PO DAILY 01/16/20 Quetiapine Fumarate [Seroquel] 25 mg PO QHS 01/16/20 Rotigotine [Neupro] 8 mg TD DAILY 01/16/20 Surgical History: total knee arthroplasty, - - Surgical repair of the fractured left humerus with internal fixation. Psychiatric History: No pertinent psych hx [place]: [place] Smoking Status: Never smoker Tobacco Use: Non-smoker Alcohol: None Drugs: None - *Family History Maternal History Items: No pertinent history Paternal History Items: No pertinent history Review of Systems Constitutional: Denies: Anorexia, Chills, Fever, Weakness Eyes: Denies: Blurred vision, Double vision, Drainage, Redness HEENT: Denies: Difficulty Hearing, Ear Pain, Eye Pain, Nasal Congestion, Sore Throat Cardiovascular: Denies: Chest Pain, Chest Pressure, Edema, Heaviness, Light Headedness, Palpitations, Syncope Respiratory: Denies: Cough, Pleuritic Pain, Shortness of Breath, Sputum production, Wheezing Gastrointestinal: Denies: Abdominal Pain, Constipation, Diarrhea, Nausea, Vomiting Genitourinary: Denies: Dysuria, Frequency, Hematuria Musculoskeletal: Reports: Joint Pain. Denies: Arm Pain, Back Pain, Foot Pain Skin: Denies: Dryness, Rash Neurological: Denies: Balance problems, Double vision, Change in Speech, Slurred speech, Confusion, Headaches, Incoordination Psychiatric: Denies: Anxiety, Depression Endocrine: Denies: Change in Body Habitus, Polydipsia VTE Information - Inpt Only VTE Present on Admission: No VTE Mechan Device Prophylaxis: SCD's VTE Pharm Prophylaxis ordered?: Yes Patient Problems: Active and Suspected Problems Fracture of femoral neck, left (Acute) - Physical Exam Vitals/I&O's: Vital Signs Temp Pulse Resp BP Pulse Ox 97.7 F L 89 26 H 176/94 H 97 01/16/20 14:21 01/16/20 18:01 01/16/20 18:01 01/16/20 18:01 01/16/20 18:01 Oxygen Delivery Method Room Air Weight: 140 lb 6.951 oz Body Mass Index (BMI) 22.6 General: Alert, Oriented x3, Cooperative, No apparent distress HEENT: Atraumatic, PERRLA, EOMI, Normocephalic Oral: Moist Mucosa, No Gingival or Mucosal Lesions/ Ulcerations Neck: Supple, No JVD, Negative Carotid Bruits, Trachea Midline, Thyroid Normal Size and Texture Lungs: Clear to auscultation, Normal air movement, No rhonchi, No wheeze, No rales, Diminished Cardiovascular: Regular rate, Regular Rhythm, Normal S1, Normal S2, PMI Normal Abdomen: Bowel Sounds Present, Soft, Non Tender, Non-Distended, No Hepato-splenomegaly Extremities: No clubbing, No cyanosis, No edema Skin: No rashes, No breakdown Lymphatic: No Cervical, Supraclavicular, or Inguinal Adenopathy Neurological: Cranial nerves II-XII grossly intact, Motor Exam 5/5 strength throughout Psych/Mental Status: Normal Affect, Appropriate Laboratory Results 01/16/20 15:10: WBC 4.3 L, RBC 3.63 L, Hgb 11.9 L, Hct 37.5, MCV 103.3 H, MCH 32.8 H, MCHC 31.7 L, RDW Std Deviation 46.1 H, RDW Coeff of Bryanna 12.1, Plt Count 248, MPV 9.2, Immature Gran % (Auto) 0.900, Neut % (Auto) 65.3, Lymph % (Auto) 21.4, [place] % (Auto) 9.1, Eos % (Auto) 2.6, Baso % (Auto) 0.7, Absolute Neuts (auto) 2.8, Absolute Lymphs (auto) 0.92, Nucleated RBC % 0 01/16/20 15:10: Sodium 134 L, Potassium 4.1, Chloride 101, Carbon Dioxide 29.0, Anion Gap 4 L, BUN 19 H, Creatinine 0.79, Estim Creat Clear Calc 42.00, Est GFR (MDRD) Af Amer 90, Est GFR (MDRD) Non-Af 74, BUN/Creatinine Ratio 24.0 H, Glucose 100, Calcium 8.7, Total Bilirubin 0.40, AST 23, ALT 13, Alkaline Phosphatase 92, Troponin I < 0.015, Total Protein 7.0, Albumin 3.8, Globulin 3.2, Albumin/Globulin Ratio 1.2 01/16/20 18:18: Urine Color Yellow, Urine Clarity Sl. Cloudy, Urine pH 7.0, Ur Specific [place] 1.010, Urine Protein Negative, Urine Glucose (UA) Normal, Urine Ketones Negative, Urine Occult Blood Negative, Urine Nitrite Negative, Urine Bilirubin Negative, Urine Urobilinogen Normal, Ur Leukocyte Esterase Negative, Urine RBC 0 SEEN, Urine WBC 0 SEEN, Ur Squamous Epith Cells 0-5 SEEN, Urine Bacteria 0 SEEN, Urine Mucus 0 SEEN Clinical Impression(s) from Imaging Studies Brain CT 01/16/20 14:49 IMPRESSION: Chronic involutional changes of the brain. Electronically Signed: Leticia Treviño, at 16:00 EDT Tel , Service support , Hip/Pelvis X-Ray 01/16/20 14:51 IMPRESSION: There is an impacted subcapital left chronic fracture. Electronically Signed: Leticia Treviño at 16:06 EDT Tel , Service support , Cervical Spine CT 01/16/20 14:54 IMPRESSION: Multilevel degenerative changes, as described above. Electronically Signed: Leticia Treviño at 16:04 EDT Tel , Service support , Chest X-Ray 01/16/20 15:45 IMPRESSION: Degenerative changes, as described above. No demonstrated acute cardiopulmonary process. Electronically Signed: Leticia Treviño at 16:06 EDT Tel , Service support , Lower Extremity CT 01/16/20 18:45 IMPRESSION: Findings consistent with impacted subcapital fracture of left femoral neck without callus formation suggestive of recent injury.. Clinical correlation recommended Electronically Signed: Galdino Armando MD at 19:17 EDT , Service support , Current Medications Carbidopa/Levodopa (Sinemet Cr) 1 tablet PO 4X/DAY [facility] Last Admin: 01/16/20 18:11 Dose: 1 tablet Documented by: Assessment/Plan All Active Problems Fracture of femoral neck, left (Acute) This is an 79 years old female patient presented to the emergency room because of fall and left hip pain, found to have acute traumatic impacted subcapital left femoral neck fracture and she is being admitted for treatment. #1 acute traumatic impacted subcapital left femoral neck fracture: Due to mechanical fall. X-ray and CT scan of the left lower extremity reviewed as above. Patient also complained of right hip pain. CT scan brain showed no acute findings, no major trauma. CT cervical spine showed no acute fracture or dislocation. Plan: Admit to [facility] floor, telemetry monitoring, complete bedrest, gentle IV fluids for hydration, IV morphine PRN for pain, OxyIR PRN for pain, IV antiemetics, Tylenol PRN, will do x-ray of the right hip, orthopedic surgery consult, repeat CBC and BMP tomorrow morning, PT OT evaluation and treatment when appropriate. #2 preoperative evaluation: 79 years old female patient with history of dementia and Parkinson's disease, [facility] resident, she is using walker for ambulation at the [facility]. No history of diabetes, hypertension or heart disease. She never smoked. Chest x-ray showed no acute findings, no infiltrate or consolidation, revealed probable right lung hyperinflation could be due to her position. EKG revealed normal sinus rhythm, no acute acute changes or cardiac arrhythmias. Based on her age, kidney function, past medical history and functional status, her estimated risk for perioperative myocardial infarction or cardiac arrest is 0.21%. Based on ACS NSQIP surgical risk calculator, her risk for serious complications is 10.7% which is average risk for her age and past medical history. No indication for further cardiac or noncardiac work-up. This patient will be at least at moderate risk for intraoperative and postoperative complications. We can proceed with surgery. #3 Parkinson's disease: Continue carbidopa/levodopa and Neupro patch. #4 dementia: Supportive treatment, continue Seroquel for agitation. #5 chronic debility: Patient is a [facility] resident. Plan for PT OT as above. #6 DVT prophylaxis: SCDs, subcu heparin, hold subcu for at least 6 hours before surgery. This note was generated with Dragon dictation software. It may contain incorrect words, spelling, and punctuation that were not noted in checking the note before signing. Inpatient E&M: 42498 Init Hosp L3
--- NOTE | 2020-01-16 20:44 | NURSING ---
This RN spoke with son German about mother's admission. He expressed his concerns for her medication regimen. This RN spoke with Anna in pharmacy regarding neupro patches which she informed me are available. [facility] charge nurse also notified about concern for medication regimen. Son verbally given information on hospital visitation policy for COVID. No other concerns at this time
--- NOTE | 2020-01-16 20:48 | ED.RN ---
[facility] informed of patient hospital admission. Spoke with Sabina
[2020-01-16 21:39] LABS: Prothrombin Time (Protime)PT. 12.6 SECONDS (11.7-14.9)
--- NOTE | 2020-01-16 22:07 | NURSING ---
Called [facility] to get last known times taken on pt's meds. They also advised that they had a flu clinic in January and on 01/11/20 pt refused flue vaccine.
--- NOTE | 2020-01-16 22:10 | RAD_ITS ---
STUDY: X-RAY - RIGHT HIP REASON FOR EXAM: Female, 79 years old. FALL, RIGHT HIP PAIN. LEFT HIP IS BROKEN. RIGHT HIP HURTS WORSE THAN LEFT. PATIENT MOVED HIP EASILY FOR IMAGES. TECHNIQUE: 3 views of the right hip. COMPARISON: None. FINDINGS: There is no evidence of fracture, dislocation, or significant degenerative disease of the osseous structures of the right hip. Soft tissues are unremarkable. RAD/Hip Min 2 Views (Portable) IMPRESSION: Normal right hip. Electronically Signed: Kashmir Zambrano MD at 23:38 EDT , Service support ,
--- NOTE | 2020-01-16 22:35 | NURSING ---
Addendum entered by Kate Barnett 01/16/20 22:36: Also advised German that according to the ER report pt would have surgery around 1400 and that he should probably come around noon or earlier to be able to see his mother prior to surgery. Also advised that he would probably have to sign the consent for surgery. Original Note: Pt's health history was obtained from pt's son and German MCCAIN. I advised him that [facility] told me they had a flu clinic in January and on 01/11/20 pt refused the vaccine. Pt's son said he would like her to have it while she was a pt here.
[2020-01-16] MEDS: Heparin Injection (Vial) 5,000 UNIT/ML VIAL 5000 UNIT SC (23:21)
[2020-01-16] MEDS: 0.9% Normal Saline 1,000 ML 75 ML IV (23:21)
[2020-01-16] MEDS: QUEtiapine 25 MG Tablet PO (23:22)
[2020-01-16] MEDS: Acetaminophen 325 MG Tablet 650 MG PO (23:28)
[2020-01-16] MEDS: 0.9% Saline Lock 10 ML Syringe IV (23:36)
[2020-01-16] MEDS: Morphine 2 MG/ML Syringe IV (23:36)
[2020-01-17] VITALS (21 sets, daily range): BP systolic 118–182; BP diastolic 60–94; PULSE 50–87; RESP 16–18; TEMP 36.2–36.9; O2SAT 93–100; BMI 20.9; BMI 55.4
--- NOTE | 2020-01-17 05:55 | NURSING ---
Called Kate at [facility] [phone] regarding pt's Neupro patches. Advised that we only have 2 mg patches and pt needs 8 mg. She advised they don't normally send medications over for pts but she will let their day shift nurse know and will call if anything changes. I had spoken to Tiburcio in our pharmacy earlier about the situation and he advised that we could see if they would send them and if not we would just use four 2 mg patches.
[2020-01-17 06:55] LABS: Absolute Lymphocyte Count 0.71 X10^3/uL (0.83-4.51); Absolute Neutrophil Count 4.3 X10^3/uL (2.0-7.7); Basophil# 0.02 X10^3/uL; Basophil% 0.4 % (0-1); Eosinophil# 0.21 X10^3/uL; Eosinophils% 3.8 % (0-5); Hematocrit 35.4 % (37-47); Hemoglobin 11.5 g/dL (12.0-15.0); Lymphocyte # 0.71 X10^3/ul (4.0); Lymphocyte % 12.7 % (19-41); Mean Corp Hgb Conc 32.5 g/dL (32-36); Mean Corpuscular Volume 101.7 fL (81-99); Mean Platelet Vol. 9.1 fl (6.2-12.0); Monocyte# 0.36 X10^3/uL; Monocyte% 6.5 % (0-10); NRBC Flagged by Analyzer 0 % (0-5); Neutrophil # 4.25 X10^3/uL (2.7-7.7); Neutrophil % 76.2 % (47-70); Platelet Count 214 K/mm3 (150-450); RBC Distribution Width CV 11.9 % (11.6-14.6); RBC Distribution Width SD 44.1 fl (35.1-43.9); Red Blood Count 3.48 M/mm3 (4.2-5.4); White Blood Count 5.6 K/mm3 (4.4-11.0)
--- NOTE | 2020-01-17 07:03 | PCM.CONS.GEN ---
Reason for Consult Date of Consultation: 01/17/20 Reason for Consultation: left hip femoral neck fracture History of Present Illness: The patient is a 79 year old F who resides in a shelter without history of prior hip fracture was using walker and had a ground-level fall immediately having left-sided hip pain CT scan confirmed left hip impacted acute femoral neck fracture. Parkinson's and dementia Past Medical History Past Medical History (Chronic Problems): Chronic Problems Debility (Chronic) Dementia (Chronic) Parkinsons disease (Chronic) Allergies cyclobenzaprine [From Flexeril] Allergy (Verified 01/16/20 14:21) NEEDS FOLLOW-UP oxycodone Allergy (Verified 01/16/20 14:21) NEEDS FOLLOW-UP propoxyphene [From Darvon] Allergy (Verified 01/16/20 14:21) NEEDS FOLLOW-UP Home Medications: Ambulatory Orders Medication Instructions Recorded Acetaminophen [Tylenol] 650 mg PO BID 01/16/20 Carbidopa/Levodopa [Carbidopa-Levo 1 tab PO 4X/DAY 01/16/20 ER 50-200 Tab] Cholecalciferol (VIT D3) [Vitamin 1,000 unit PO DAILY 01/16/20 D] Ibuprofen 600 mg PO Q6H PRN PRN 01/16/20 Magnesium Hydroxide [Milk Of 30 ml PO Q12H PRN PRN 01/16/20 Magnesia] Multivitamin [Flintstones] 1 ea PO DAILY 01/16/20 Quetiapine Fumarate [Seroquel] 25 mg PO QHS 01/16/20 Rotigotine [Neupro] 8 mg TD DAILY 01/16/20 Surgical History: total knee arthroplasty, - - Surgical repair of the fractured left humerus with internal fixation. Psychiatric History: No pertinent psych hx Lives: [facility] Smoking Status: Never smoker Tobacco Use: Non-smoker Alcohol: None Drugs: None - *Family History Maternal History Items: No pertinent history Paternal History Items: No pertinent history Patient Problems: Active and Suspected Problems Fracture of femoral neck, left (Acute) - Physical Exam Vitals/I&O's: Vital Signs Temp Pulse Resp BP Pulse Ox 98.4 F 69 18 146/78 H 95 01/17/20 03:12 01/17/20 04:26 01/17/20 03:12 01/17/20 03:12 01/17/20 03:12 Oxygen Delivery Method Room Air Weight: 122 lb 2.177 oz Body Mass Index (BMI) 20.9 Intake and Output for Last 24 Hours 01/15/20 01/16/20 01/17/20 23:59 23:59 23:59 Intake Total 250 / 250 Output Total 450 / 450 Balance -200 / -200 General: Cooperative, No apparent distress, Confused, Disoriented Extremities: - - Lateral knee scars from prior arthroplasty without joint effusion in the knee there is mild bilateral lower extremity swelling with palpable pedal pulses she has intact sensation to light touch when asked to dorsiflex her toes and ankles she twitches her toes but does not lift her ankle. There is no open lesions around the hip compartments are soft Laboratory Results 01/16/20 15:10: WBC 4.3 L, RBC 3.63 L, Hgb 11.9 L, Hct 37.5, MCV 103.3 H, MCH 32.8 H, MCHC 31.7 L, RDW Std Deviation 46.1 H, RDW Coeff of Bryanna 12.1, Plt Count 248, MPV 9.2, Immature Gran % (Auto) 0.900, Neut % (Auto) 65.3, Lymph % (Auto) 21.4, [place] % (Auto) 9.1, Eos % (Auto) 2.6, Baso % (Auto) 0.7, Absolute Neuts (auto) 2.8, Absolute Lymphs (auto) 0.92, Nucleated RBC % 0 01/16/20 15:10: Sodium 134 L, Potassium 4.1, Chloride 101, Carbon Dioxide 29.0, Anion Gap 4 L, BUN 19 H, Creatinine 0.79, Estim Creat Clear Calc 42.00, Est GFR (MDRD) Af Amer 90, Est GFR (MDRD) Non-Af 74, BUN/Creatinine Ratio 24.0 H, Glucose 100, Calcium 8.7, Total Bilirubin 0.40, AST 23, ALT 13, Alkaline Phosphatase 92, Troponin I < 0.015, Total Protein 7.0, Albumin 3.8, Globulin 3.2, Albumin/Globulin Ratio 1.2 01/16/20 15:10: PT 12.6, INR 1.0 01/16/20 18:18: Urine Color Yellow, Urine Clarity Sl. Cloudy, Urine pH 7.0, Ur Specific [place] 1.010, Urine Protein Negative, Urine Glucose (UA) Normal, Urine Ketones Negative, Urine Occult Blood Negative, Urine Nitrite Negative, Urine Bilirubin Negative, Urine Urobilinogen Normal, Ur Leukocyte Esterase Negative, Urine RBC 0 SEEN, Urine WBC 0 SEEN, Ur Squamous Epith Cells 0-5 SEEN, Urine Bacteria 0 SEEN, Urine Mucus 0 SEEN 01/16/20 20:14: COVID-19 (ELAINE) Negative 01/17/20 06:34: Sodium Pending, Potassium Pending, Chloride Pending, Carbon Dioxide Pending, Anion Gap Pending, BUN Pending, Creatinine Pending, Est GFR (MDRD) Af Amer Pending, Est GFR (MDRD) Non-Af Pending, BUN/Creatinine Ratio Pending, Glucose Pending, Calcium Pending 01/17/20 06:34: WBC 5.6, RBC 3.48 L, Hgb 11.5 L, Hct 35.4 L, MCV 101.7 H, MCH 33.0 H, MCHC 32.5, RDW Std Deviation 44.1 H, RDW Coeff of [place]anna 11.9, Plt Count 214, MPV 9.1, Immature Gran % (Auto) 0.400, Neut % (Auto) 76.2 H, Lymph % (Auto) 12.7 L, [place] % (Auto) 6.5, Eos % (Auto) 3.8, Baso % (Auto) 0.4, Absolute Neuts (auto) 4.3, Absolute Lymphs (auto) 0.71 L, Nucleated RBC % 0 01/17/20 06:34: Blood Type Pending, Antibody Screen Pending Current Medications Acetaminophen (Tylenol) 650 mg PO Q6H PRN PRN PRN Reason: Pain Score 1-10/Temp > 100.7 F Last Admin: 01/16/20 23:28 Dose: 650 mg Documented by: Carbidopa/Levodopa (Sinemet Cr) 1 tablet PO 4X/DAY [facility] Last Admin: 01/16/20 23:22 Dose: 1 tablet Documented by: Heparin Sodium (Porcine) (Heparin Na) 5,000 unit SC Q12 [facility] Last Admin: 01/16/20 23:21 Dose: 5,000 unit Documented by: Sodium Chloride () 1,000 mls @ 75 mls/hr IV .[id number] [facility] Last Admin: 01/16/20 23:21 Dose: 75 mls/hr Documented by: Influenza Virus Vaccine Quadrival (Flucelvax /Fluzone ) 0.5 ml IM .ONCE ONE Stop: 01/17/20 10:01 Morphine Sulfate () 2 mg IV Q3H PRN PRN PRN Reason: Pain Score 6-10/10 Last Admin: 01/16/20 23:36 Dose: 2 mg Documented by: Ondansetron HCl (Zofran) 4 mg IV Q8H PRN PRN PRN Reason: NAUSEA/VOMITING Oxycodone HCl (Oxyir) 5 mg PO Q4H PRN PRN PRN Reason: Pain Score 4-5/10 Quetiapine Fumarate (Seroquel) 25 mg PO QHS [facility] Last Admin: 01/16/20 23:22 Dose: 25 mg Documented by: Rotigotine (Neupro) 8 mg TRANSDERM. DAILY [facility] Senna/Docusate Sodium (Senokot-S, Shannan-Colace) 2 tablet PO BID PRN PRN PRN Reason: Constipation Sodium Chloride () 10 - 40 ml IV UD PRN PRN Reason: SALINE FLUSH Last Admin: 01/16/20 23:36 Dose: 10 ml Documented by: Zolpidem Tartrate (Ambien (Generic)) 5 mg PO QHS PRN PRN PRN Reason: INSOMNIA Assessment/Plan All Active Problems Fracture of femoral neck, left (Acute) Impacted subcapital femoral neck fracture acute Plan for hemiarthroplasty of left hip this patient would not be able to comply with postoperative restrictions of percutaneous pinning Plan for OR today as medically optimized
[2020-01-17 07:24] LABS: Anion Gap 5 (5-15); BUN 16 mg/dL (7-18); BUN/Creat Ratio 26.5 RATIO (10-20); Calcium,Total 8.3 mg/dL (8.5-10.1); Chloride 106 mmol/L (98-107); EST Glomerular Filtration Rate 101 mL/min (>60); Est Glom Filt Rate - Afr Amer 123 mL/min (>60); Estimated Creatinine Clearance 38.75 ml/min; Glucose 88 mg/dL (74-106); Sodium Level 136 mmol/L (136-145)
--- NOTE | 2020-01-17 07:44 | PCM.PN.HOSP ---
Patient Problems: Active and Suspected Problems Fracture of femoral neck, left (Acute) Subjective: Patient seen and examined. She was admitted with a complaint of mechanical fall and found to have impacted left femoral neck fracture. Orthopedic surgery is on board. Patient has no complaints this morning. Pain is well controlled. Hemodynamically stable. Vitals/I&O's: Vital Signs Temp Pulse Resp BP Pulse Ox 98.4 F 69 18 146/78 H 95 01/17/20 03:12 01/17/20 04:26 01/17/20 03:12 01/17/20 03:12 01/17/20 03:12 Oxygen Delivery Method Room Air Weight: 122 lb 2.177 oz Body Mass Index (BMI) 20.9 Intake and Output for Last 24 Hours 01/15/20 01/16/20 01/17/20 23:59 23:59 23:59 Intake Total 250 / 250 Output Total 450 / 450 Balance -200 / -200 General: Alert, Oriented x3, Cooperative HEENT: Atraumatic, PERRLA, EOMI, Normocephalic Oral: Moist Mucosa Neck: Supple, No JVD, Negative Carotid Bruits Lungs: Clear to auscultation, Normal air movement, No rhonchi, No wheeze, No rales Cardiovascular: Regular rate, Regular Rhythm, Normal S1, Normal S2, No murmurs Abdomen: Bowel Sounds Present, Soft, Non Tender, Non-Distended, No Hepato-splenomegaly Extremities: No clubbing, No cyanosis, No edema, Capillary Refill Less than 3 Seconds Skin: No rashes, No breakdown Musculoskeletal: No Tenderness to Palpation of Joints or Extremities Lymphatic: No Cervical, Supraclavicular, or Inguinal Adenopathy Neurological: Cranial nerves II-XII grossly intact Psych/Mental Status: Normal Affect, Appropriate, Alert and oriented to time, place, person, mood and affect Laboratory Results 01/16/20 15:10: WBC 4.3 L, RBC 3.63 L, Hgb 11.9 L, Hct 37.5, MCV 103.3 H, MCH 32.8 H, MCHC 31.7 L, RDW Std Deviation 46.1 H, RDW Coeff of Bryanna 12.1, Plt Count 248, MPV 9.2, Immature Gran % (Auto) 0.900, Neut % (Auto) 65.3, Lymph % (Auto) 21.4, [place] % (Auto) 9.1, Eos % (Auto) 2.6, Baso % (Auto) 0.7, Absolute Neuts (auto) 2.8, Absolute Lymphs (auto) 0.92, Nucleated RBC % 0 01/16/20 15:10: Sodium 134 L, Potassium 4.1, Chloride 101, Carbon Dioxide 29.0, Anion Gap 4 L, BUN 19 H, Creatinine 0.79, Estim Creat Clear Calc 42.00, Est GFR (MDRD) Af Amer 90, Est GFR (MDRD) Non-Af 74, BUN/Creatinine Ratio 24.0 H, Glucose 100, Calcium 8.7, Total Bilirubin 0.40, AST 23, ALT 13, Alkaline Phosphatase 92, Troponin I < 0.015, Total Protein 7.0, Albumin 3.8, Globulin 3.2, Albumin/Globulin Ratio 1.2 01/16/20 15:10: PT 12.6, INR 1.0 01/16/20 18:18: Urine Color Yellow, Urine Clarity Sl. Cloudy, Urine pH 7.0, Ur Specific [place] 1.010, Urine Protein Negative, Urine Glucose (UA) Normal, Urine Ketones Negative, Urine Occult Blood Negative, Urine Nitrite Negative, Urine Bilirubin Negative, Urine Urobilinogen Normal, Ur Leukocyte Esterase Negative, Urine RBC 0 SEEN, Urine WBC 0 SEEN, Ur Squamous Epith Cells 0-5 SEEN, Urine Bacteria 0 SEEN, Urine Mucus 0 SEEN 01/16/20 20:14: COVID-19 (ELAINE) Negative 01/17/20 06:34: Sodium 136, Potassium 4.0, Chloride 106, Carbon Dioxide 25.0, Anion Gap 5, BUN 16, Creatinine 0.60, Estim Creat Clear Calc 38.75, Est GFR (MDRD) Af Amer 123, Est GFR (MDRD) Non-Af 101, BUN/Creatinine Ratio 26.5 H, Glucose 88, Calcium 8.3 L 01/17/20 06:34: WBC 5.6, RBC 3.48 L, Hgb 11.5 L, Hct 35.4 L, MCV 101.7 H, MCH 33.0 H, MCHC 32.5, RDW Std Deviation 44.1 H, RDW Coeff of Bryanna 11.9, Plt Count 214, MPV 9.1, Immature Gran % (Auto) 0.400, Neut % (Auto) 76.2 H, Lymph % (Auto) 12.7 L, [place] % (Auto) 6.5, Eos % (Auto) 3.8, Baso % (Auto) 0.4, Absolute Neuts (auto) 4.3, Absolute Lymphs (auto) 0.71 L, Nucleated RBC % 0 01/17/20 06:34: Blood Type Pending, Antibody Screen Pending Diagnostic Data Brain CT 01/16/20 14:49 IMPRESSION: Chronic involutional changes of the brain. Electronically Signed: Leticia Treviño, at 16:00 EDT Tel , Service support , Hip/Pelvis X-Ray 01/16/20 14:51 IMPRESSION: There is an impacted subcapital left chronic fracture. Electronically Signed: Leticia Treviño at 16:06 EDT Tel , Service support , Cervical Spine CT 01/16/20 14:54 IMPRESSION: Multilevel degenerative changes, as described above. Electronically Signed: Leticia Treviño at 16:04 EDT Tel , Service support , Chest X-Ray 01/16/20 15:45 IMPRESSION: Degenerative changes, as described above. No demonstrated acute cardiopulmonary process. Electronically Signed: Leticia Treviño at 16:06 EDT Tel , Service support , Lower Extremity CT 01/16/20 18:45 IMPRESSION: Findings consistent with impacted subcapital fracture of left femoral neck without callus formation suggestive of recent injury.. Clinical correlation recommended Electronically Signed: Galdino Armando MD at 19:17 EDT , Service support , Hip X-Ray 01/16/20 22:10 IMPRESSION: Normal right hip. Electronically Signed: Kashmir Zambrano MD at 23:38 EDT , Service support , Current Medications Acetaminophen (Tylenol) 650 mg PO Q6H PRN PRN PRN Reason: Pain Score 1-10/Temp > 100.7 F Last Admin: 01/16/20 23:28 Dose: 650 mg Documented by: Carbidopa/Levodopa (Sinemet Cr) 1 tablet PO 4X/DAY [facility] Last Admin: 01/16/20 23:22 Dose: 1 tablet Documented by: Heparin Sodium (Porcine) (Heparin Na) 5,000 unit SC Q12 [facility] Last Admin: 01/16/20 23:21 Dose: 5,000 unit Documented by: Sodium Chloride () 1,000 mls @ 75 mls/hr IV .[id number] [facility] Last Admin: 01/16/20 23:21 Dose: 75 mls/hr Documented by: Cefazolin Sodium 2 gm/ Sodium (Chloride) 120 mls @ 240 mls/hr IV SEND TO OR W/PATIENT ONE Stop: 01/17/20 08:12 Influenza Virus Vaccine Quadrival (Flucelvax /Fluzone ) 0.5 ml IM .ONCE ONE Stop: 01/17/20 10:01 Morphine Sulfate () 2 mg IV Q3H PRN PRN PRN Reason: Pain Score 6-10/10 Last Admin: 01/16/20 23:36 Dose: 2 mg Documented by: Ondansetron HCl (Zofran) 4 mg IV Q8H PRN PRN PRN Reason: NAUSEA/VOMITING Oxycodone HCl (Oxyir) 5 mg PO Q4H PRN PRN PRN Reason: Pain Score 4-5/10 Quetiapine Fumarate (Seroquel) 25 mg PO QHS [facility] Last Admin: 01/16/20 23:22 Dose: 25 mg Documented by: Rotigotine (Neupro) 8 mg TRANSDERM. DAILY [facility] Senna/Docusate Sodium (Senokot-S, Shannan-Colace) 2 tablet PO BID PRN PRN PRN Reason: Constipation Sodium Chloride () 10 - 40 ml IV UD PRN PRN Reason: SALINE FLUSH Last Admin: 01/16/20 23:36 Dose: 10 ml Documented by: Zolpidem Tartrate (Ambien (Generic)) 5 mg PO QHS PRN PRN PRN Reason: INSOMNIA STROKE Vital Signs/Narrative: Vital Signs Pulse 01/17/20 04:26 69 Medical Necessity - Tobacco Use Smoking Status: Never smoker Tobacco Use: Non-smoker Assessment/Plan All Active Problems Fracture of femoral neck, left (Acute) #Acute traumatic fracture of the left femoral neck pain well controlled patient due for surgery today. orthopedic surgery on board PT./OT on board on IV morphine, oxycodone nad tylenol prn for pain patient risk stratified for surgery on admission, no need for further workup. She is at moderate risk of complications # Parkinson;s disease: on carbidopa./levodopa # Dementia: on seroquel prn for agitation DVT prophylaxis; Lovenox. Inpatient E&M: [id number] [facility] L[facility]
[2020-01-17] MEDS: CARBIDOPA/LEVODOPA CR 50/200 Tablet PO ×3 (08:14→20:37)
[2020-01-17] MEDS: Morphine 2 MG/ML Syringe IV ×3 (10:23→23:44)
--- NOTE | 2020-01-17 11:29 | CASEMGMT ---
Social Work SW met with pt and son German and introduced self and role of SW. Pt is a current pt at [facility]. Pt awake and lying in bed but not responding to SW questions. SW spoke with pt son regarding discharge plan. Pt son stating he would like pt to return to [facility] if at all possible. SW explained possible need for short term SNF stay for rehab prior to return to [place]. SW explained Medicare payment and provided written list of area SNFs. SW also explained that pt will start therapy after surgery and recommendations will be made for best outcomes and that [facility] will be provided pt information and will make decision if they can accommodate pt after surgery. SW to follow up with pt son tomorrow. Phone call to [facility] and spoke with Lily, pt nurse, and updated on pt status. Clinicals faxed. Plan: Return to [place] vs. SNF placement RASTA Mckeon
--- NOTE | 2020-01-17 11:48 | CASEMGMT ---
Social Work SW met with pt son German Gao who states pt does have a living will and health care POA naming German and that Fam has a copy of them. Phone call to Fam and requested documents be faxed. RASTA Mckeon
[2020-01-17] MEDS: Cefazolin 2 GM in 0.9% Normal Saline 100 ML IV (12:58)
--- NOTE | 2020-01-17 14:12 | PCM.OPRPT ---
Report of Operation Date of Procedure: 01/17/20 Description of Surgical Findings:: Preoperative diagnosis: Left hip femoral neck fracture displaced Postoperative diagnosis: Same Procedure: Right hip hemiarthroplasty Implants: Yaya Accolade II stem size 3 132 degree neck angle 0 neck length 45 mm outer diameter bipolar head Anesthesia: General l EBL: 150 cc Complications: None Condition: Stable to PACU Indication for procedure: This is a 79-year-old female patient with Parkinson's and dementia with a ground-level fall previous ambulator sustaining femoral neck fracture displaced left. plans for definitive hemiarthroplasty were discussed including risks benefits and alternatives of the procedure were reviewed with the patients son which is her POA German Gao including risk of bleeding infection nerve artery tissue damage need for further surgery continue pain postoperative hip precaution restrictions leg length discrepancy and dislocation. Procedure: Patient was met in the preoperative holding area once again the operative extremity was identified by both patient and physician and was marked. Patient was met by anesthesia and brought to the operating room where anesthesia was started . The patient was then positioned in the lateral decubitus position on a well-padded pegboard with an axillary roll. All bony prominences were checked and padded. The patient was prepped and draped in the usual sterile fashion. A timeout was called to ensure the proper patient procedure and extremity were being contemplated. Anatomic landmarks were palpated and marked for a standard posterior lateral approach. A timeout was called to ensure the proper patient procedure and extremity were being contemplated. A 10 blade scalpel was used to make a posterior incision through the skin and subcutaneous tissue. In retractors were used and electrocautery was used to maintain meticulous hemostasis and dissect full-thickness flaps until the gluteal fascia was reached. The gluteal fascia was incised in line with the gluteal fibers. The bursal tissue was then freed from the underside and a Charnley retractor was placed. The fatpad was elevated off of the external rotators with electrocautery and the external rotators were dissected off of the greater trochanter including the piriformis and were tagged with #1 Ethibond for later repair. The joint capsule opened with posterior trapdoor technique. A femoral neck cutting guide was used to hugo the neck with a Bovie and an oscillating saw was used to complete the femoral neck cut. the fracture was visualized and with the use of a corkscrew and a skid the femoral head was removed and sized. We then trialed with the matching sizes . Hohmann was placed around the lesser trochanter. A femoral elevator was used. As well as a pointed wide Hohmann around the lesser trochanter and a Hohmann to help retract the gluteus medius. A box chisel was used to remove excess lateral neck followed by a canal finder and a lateralizing reamer. This was followed by sequential broaches. Attention was made of the version within the canal. Once the final broach was seated we then trialed and reduced the hip it was determined that a 132 degree neck angle with a 0 neck length was the appropriate size. We then checked stability with shuck testing as well as flexion and interminal rotation then proceeded with hip extension and checked leg lengths at the knees and heels. At this point trials were removed. The femoral stem was inserted. We re-trialed and then proceeded to impact the femoral head onto the Serjio taper. We then surgically reduce the hip check stability again and leg lengths and were satisfied. irricept rinse was allowed to sit for 1 minutes while everyone changed their gloves. Thorough irrigation was performed. Followed by closure of the external rotators with #2 FiberWire followed by closure of gluteal fascia with #1 Ethibond. 0 Vicryl fat stitches and 2-0 Vicryl subcutaneous stitches and sri in the skin. Dressing was applied in the form of silverlon dressing and an abduction pillow was placed. Patient tolerated the procedure well there was no intraoperative complications all counts were correct and the patient was brought back to the PACU in stable condition
--- NOTE | 2020-01-17 14:25 | PN.ORTHO_ITS ---
Patient Problems: Active and Suspected Problems Fracture of femoral neck, left (Acute) Subjective: post op in pacu. patient and in no acute distress pain controlled - Physical Exam Vitals/I&O's: Vital Signs Temp Pulse Resp BP Pulse Ox 97.2 F L 50 L 16 144/71 H 100 01/17/20 14:10 01/17/20 14:10 01/17/20 14:10 01/17/20 14:10 01/17/20 14:10 Oxygen Flow Rate (L/min) 4 Oxygen Delivery Method Nasal Cannula Weight: 122 lb 2.177 oz Body Mass Index (BMI) 20.9 Intake and Output for Last 24 Hours 01/15/20 01/16/20 01/17/20 23:59 23:59 23:59 Intake Total 1250 / 1250 Output Total 450 / 450 Balance 800 / 800 General: Cooperative, No apparent distress Extremities: - - Dressing clean dry and intact compartment soft Laboratory Results 01/16/20 15:10: WBC 4.3 L, RBC 3.63 L, Hgb 11.9 L, Hct 37.5, MCV 103.3 H, MCH 32.8 H, MCHC 31.7 L, RDW Std Deviation 46.1 H, RDW Coeff of Bryanna 12.1, Plt Count 248, MPV 9.2, Immature Gran % (Auto) 0.900, Neut % (Auto) 65.3, Lymph % (Auto) 21.4, [place] % (Auto) 9.1, Eos % (Auto) 2.6, Baso % (Auto) 0.7, Absolute Neuts (auto) 2.8, Absolute Lymphs (auto) 0.92, Nucleated RBC % 0 01/16/20 15:10: Sodium 134 L, Potassium 4.1, Chloride 101, Carbon Dioxide 29.0, Anion Gap 4 L, BUN 19 H, Creatinine 0.79, Estim Creat Clear Calc 42.00, Est GFR (MDRD) Af Amer 90, Est GFR (MDRD) Non-Af 74, BUN/Creatinine Ratio 24.0 H, Glucose 100, Calcium 8.7, Total Bilirubin 0.40, AST 23, ALT 13, Alkaline Phosphatase 92, Troponin I < 0.015, Total Protein 7.0, Albumin 3.8, Globulin 3.2, Albumin/Globulin Ratio 1.2 01/16/20 15:10: PT 12.6, INR 1.0 01/16/20 18:18: Urine Color Yellow, Urine Clarity Sl. Cloudy, Urine pH 7.0, Ur Specific [place] 1.010, Urine Protein Negative, Urine Glucose (UA) Normal, Urine Ketones Negative, Urine Occult Blood Negative, Urine Nitrite Negative, Urine Bilirubin Negative, Urine Urobilinogen Normal, Ur Leukocyte Esterase Negative, Urine RBC 0 SEEN, Urine WBC 0 SEEN, Ur Squamous Epith Cells 0-5 SEEN, Urine Bacteria 0 SEEN, Urine Mucus 0 SEEN 01/16/20 20:14: COVID-19 (ELAINE) Negative 01/17/20 06:34: Sodium 136, Potassium 4.0, Chloride 106, Carbon Dioxide 25.0, Anion Gap 5, BUN 16, Creatinine 0.60, Estim Creat Clear Calc 38.75, Est GFR (MDRD) Af Amer 123, Est GFR (MDRD) Non-Af 101, BUN/Creatinine Ratio 26.5 H, Glucose 88, Calcium 8.3 L 01/17/20 06:34: WBC 5.6, RBC 3.48 L, Hgb 11.5 L, Hct 35.4 L, MCV 101.7 H, MCH 33.0 H, MCHC 32.5, RDW Std Deviation 44.1 H, RDW Coeff of Bryanna 11.9, Plt Count 214, MPV 9.1, Immature Gran % (Auto) 0.400, Neut % (Auto) 76.2 H, Lymph % (Auto) 12.7 L, [place] % (Auto) 6.5, Eos % (Auto) 3.8, Baso % (Auto) 0.4, Absolute Neuts (auto) 4.3, Absolute Lymphs (auto) 0.71 L, Nucleated RBC % 0 01/17/20 06:34: Blood Type O POSITIVE, Antibody Screen NEGATIVE Current Medications Acetaminophen (Tylenol) 650 mg PO Q6H PRN PRN PRN Reason: Pain Score 1-10/Temp > 100.7 F Last Admin: 01/16/20 23:28 Dose: 650 mg Documented by: Apixaban (Eliquis) 2.5 mg PO BID [facility] Carbidopa/Levodopa (Sinemet Cr) 1 tablet PO 4X/DAY [facility] Last Admin: 01/17/20 08:14 Dose: 1 tablet Documented by: Sodium Chloride () 1,000 mls @ 75 mls/hr IV .[id number] [facility] Last Infusion: 01/17/20 12:41 Dose: Infused Documented by: Cefazolin Sodium () 1 gm in 50 mls @ 100 mls/hr IV Q8H [facility] Stop: 01/18/20 07:29 Morphine Sulfate () 2 mg IV Q3H PRN PRN PRN Reason: Pain Score 6-10/10 Last Admin: 01/17/20 10:23 Dose: 2 mg Documented by: Ondansetron HCl (Zofran) 4 mg IV Q6H PRN PRN PRN Reason: NAUSEA Quetiapine Fumarate (Seroquel) 25 mg PO QHS [facility] Last Admin: 01/16/20 23:22 Dose: 25 mg Documented by: Rotigotine (Neupro) 8 mg TRANSDERM. DAILY [facility] Senna/Docusate Sodium (Senokot-S, Shannan-Colace) 2 tablet PO BID PRN PRN PRN Reason: Constipation Sodium Chloride () 10 - 40 ml IV UD PRN PRN Reason: SALINE FLUSH Last Admin: 01/16/20 23:36 Dose: 10 ml Documented by: Zolpidem Tartrate (Ambien (Generic)) 5 mg PO QHS PRN PRN PRN Reason: INSOMNIA Medical Necessity - Tobacco Use Smoking Status: Never smoker Tobacco Use: Non-smoker Assessment/Plan All Active Problems Fracture of femoral neck, left (Acute) Postop day 0 left hip hemiarthroplasty patient tolerated procedure well with no intraoperative complications Patient will be started on DVT prophylaxis in the form of SCDs JONATHAN hose and Eliquis 2.5 mg twice daily for 3 weeks postop this will be started the a.m. after surgery. PT OT weightbearing as tolerated. Patient's family would like patient to return back to her nursing care facility as soon as possible.
--- NOTE | 2020-01-17 14:28 | CHAPLAIN ---
Type of Pastoral Visit _x__ Initial Visit ___ Follow-up Visit ___ On-call Visit ___ General Patient Visit ___ Spiritual Assessment ___ Family Conference ___ Bereavement ___ Rapid Response ___ Code Blue ___ Other (describe below) Pastoral Care Referral From _x__ Patient ___ Family ___ Nurse ___ Physician ___ Chute Man ___ Honing Machine Operator Tool ___ Other (describe below) Sacrament/Intervention _x__ Active listening ___ Anointing ___ Druze ___ Bereavement ___ Communion ___ Charito exploration ___ ___ Life review _x__ Prayer ___ Reconciliation ___ Sacrament of Sick _x__ Supportive presence ___ Wedding ___ Other (describe below) Pastoral Comments met with patient and her son in the room prior to surgery; pt states that prayer would be accepted; pt is member of [employer]; son welcomes 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
[2020-01-17] MEDS: Lactated Ringers 1,000 ML 100 ML IV (14:31)
--- NOTE | 2020-01-17 14:50 | RAD_ITS ---
STUDY: X-RAY - PELVIS AND LEFT HIP REASON FOR EXAM: Female, 79 years old. POST OP TECHNIQUE: 2 views of the pelvis and hip. COMPARISON: Prior left hip study of 01/16/2020 FINDINGS: The visualized pelvis appears intact. Status post total left hip replacement changes are seen with implants appearing in good position. There is no evidence of implant loosening or associated fracture. Skin sri are seen laterally. RAD/Hip Min 2 Views (Portable) IMPRESSION: Status post total left hip replacement changes seen with implants appearing in good position. Electronically Signed: Kashmir Zambrano MD at 16:03 EDT , Service support ,
[2020-01-17] MEDS: Cefazolin 1 GM/50 ML BAG IV ×2 (16:32→23:30)
[2020-01-17] MEDS: Acetaminophen 325 MG Tablet 650 MG PO (20:36)
[2020-01-17] MEDS: Senna/Docusate Sodium 1 Tablet 2 TABLET PO (20:36)
[2020-01-17] MEDS: QUEtiapine 25 MG Tablet PO (20:37)
[2020-01-17] MEDS: 0.9% Saline Lock 10 ML Syringe IV (23:44)
[2020-01-18] VITALS (12 sets, daily range): BP systolic 109–163; BP diastolic 68–110; PULSE 66–90; RESP 16–20; TEMP 37.1–37.7; O2SAT 94–99; BMI 55.4
[2020-01-18] MEDS: 0.9% Normal Saline 1,000 ML 75 ML IV (03:08)
[2020-01-18] MEDS: Acetaminophen 325 MG Tablet 650 MG PO (03:14)
[2020-01-18] MEDS: Cefazolin 1 GM/50 ML BAG IV (06:31)
[2020-01-18] MEDS: APIXABAN 2.5 MG TABLET PO ×2 (06:31→20:36)
[2020-01-18 06:36] LABS: Hematocrit 31.1 % (37-47); Hemoglobin 10.1 g/dL (12.0-15.0); Mean Corp Hgb Conc 32.5 g/dL (32-36); Mean Corpuscular Hgb 32.9 pg (27.0-32.0); Mean Corpuscular Volume 101.3 fL (81-99); Mean Platelet Vol. 9.1 fl (6.2-12.0); Platelet Count 178 K/mm3 (150-450); RBC Distribution Width SD 44.5 fl (35.1-43.9); Red Blood Count 3.07 M/mm3 (4.2-5.4); White Blood Count 6.1 K/mm3 (4.4-11.0)
[2020-01-18 07:05] LABS: Anion Gap 7 (5-15); BUN 14 mg/dL (7-18); BUN/Creat Ratio 26.9 RATIO (10-20); Calcium,Total 8.1 mg/dL (8.5-10.1); Chloride 101 mmol/L (98-107); Creatinine, Serum 0.52 mg/dL (0.55-1.02); EST Glomerular Filtration Rate 121 mL/min (>60); Est Glom Filt Rate - Afr Amer 146 mL/min (>60); Estimated Creatinine Clearance 38.75 ml/min; Glucose 87 mg/dL (74-106); Potassium 3.6 mmol/L (3.5-5.1); Sodium Level 133 mmol/L (136-145)
--- NOTE | 2020-01-18 07:40 | PN_ITS ---
Patient Problems: Active and Suspected Problems Fracture of femoral neck, left (Acute) Subjective: Patient seen and examined. Today is POD 1 for right hip hemiarthroplasty. She has no complaints. Pain is well controlled. Blood pressure is a bit elevated this morning at 152/68. Vitals/I&O's: Vital Signs Temp Pulse Resp BP Pulse Ox 99.2 F H 70 16 152/68 H 96 01/18/20 04:45 01/18/20 04:45 01/18/20 04:45 01/18/20 04:45 01/18/20 04:45 Oxygen Flow Rate (L/min) 2 Oxygen Delivery Method Room Air Weight: 122 lb 2.177 oz Body Mass Index (BMI) 20.9 Intake and Output for Last 24 Hours 01/16/20 01/17/20 01/18/20 23:59 23:59 23:59 Intake Total 2540 / 2690 1341.25 / 1341.25 Output Total 600 / 1050 650 / 650 Balance 1940 / 1640 691.25 / 691.25 General: Alert, Oriented x3, Cooperative HEENT: Atraumatic, PERRLA, EOMI, Normocephalic Oral: Moist Mucosa Neck: Supple, No JVD, Negative Carotid Bruits Lungs: Clear to auscultation, Normal air movement, No rhonchi, No wheeze, No rales Cardiovascular: Regular rate, Regular Rhythm, Normal S1, Normal S2, No murmurs Abdomen: Bowel Sounds Present, Soft, Non Tender, Non-Distended, No Hepato- splenomegaly Extremities: No clubbing, No cyanosis, No edema, Capillary Refill Less than 3 Seconds Skin: No rashes, No breakdown Musculoskeletal: No Tenderness to Palpation of Joints or Extremities; surgical dressing over right hip Lymphatic: No Cervical, Supraclavicular, or Inguinal Adenopathy Neurological: Cranial nerves II-XII grossly intact Psych/Mental Status: Normal Affect, Appropriate, Alert and oriented to time, place, person, mood and affect Laboratory Results 01/17/20 06:34: Blood Type O POSITIVE, Antibody Screen NEGATIVE 01/18/20 06:18: WBC 6.1, RBC 3.07 L, Hgb 10.1 L, Hct 31.1 L, MCV 101.3 H, MCH 32.9 H, MCHC 32.5, RDW Std Deviation 44.5 H, RDW Coeff of Bryanna 12.0, Plt Count 178, MPV 9.1 01/18/20 06:18: Sodium 133 L, Potassium 3.6, Chloride 101, Carbon Dioxide 25.0, Anion Gap 7, BUN 14, Creatinine 0.52 L, Estim Creat Clear Calc 38.75, Est GFR (MDRD) Af Amer 146, Est GFR (MDRD) Non-Af 121, BUN/Creatinine Ratio 26.9 H, Glucose 87, Calcium 8.1 L Diagnostic Data Brain CT 01/16/20 14:49 IMPRESSION: Chronic involutional changes of the brain. Electronically Signed: Leticia Treviño, at 16:00 EDT Tel , Service support , Hip/Pelvis X-Ray 01/16/20 14:51 IMPRESSION: There is an impacted subcapital left chronic fracture. Electronically Signed: Leticia Treviño at 16:06 EDT Tel , Service support , Cervical Spine CT 01/16/20 14:54 IMPRESSION: Multilevel degenerative changes, as described above. Electronically Signed: Leticia Treviño at 16:04 EDT Tel , Service support , Chest X-Ray 01/16/20 15:45 IMPRESSION: Degenerative changes, as described above. No demonstrated acute cardiopulmonary process. Electronically Signed: Leticia Treviño at 16:06 EDT Tel , Service support , Lower Extremity CT 01/16/20 18:45 IMPRESSION: Findings consistent with impacted subcapital fracture of left femoral neck without callus formation suggestive of recent injury.. Clinical correlation recommended Electronically Signed: Galdino Armando MD at 19:17 EDT , Service support , Hip X-Ray 01/17/20 14:50 IMPRESSION: Status post total left hip replacement changes seen with implants appearing in good position. Electronically Signed: Kashmir Zambrano MD at 16:03 EDT , Service support , Current Medications Acetaminophen (Tylenol) 650 mg PO Q6H PRN PRN PRN Reason: Pain Score 1-10/Temp > 100.7 F Last Admin: 01/18/20 03:14 Dose: 650 mg Documented by: Apixaban (Eliquis) 2.5 mg PO BID [facility] Last Admin: 01/18/20 06:31 Dose: 2.5 mg Documented by: Carbidopa/Levodopa (Sinemet Cr) 1 tablet PO 4X/DAY [facility] Last Admin: 01/17/20 20:37 Dose: 1 tablet Documented by: Sodium Chloride () 1,000 mls @ 75 mls/hr IV .[id number] [facility] Last Infusion: 01/18/20 03:41 Dose: 15 mls/hr Documented by: Morphine Sulfate () 2 mg IV Q3H PRN PRN PRN Reason: Pain Score 6-10/10 Last Admin: 01/17/20 23:44 Dose: 2 mg Documented by: Ondansetron HCl (Zofran) 4 mg IV Q6H PRN PRN PRN Reason: NAUSEA Quetiapine Fumarate (Seroquel) 25 mg PO QHS [facility] Last Admin: 01/17/20 20:37 Dose: 25 mg Documented by: Rotigotine (Neupro) 8 mg TRANSDERM. DAILY [facility] Last Admin: 01/17/20 16:34 Dose: 8 mg Documented by: Senna/Docusate Sodium (Senokot-S, Shannan-Colace) 2 tablet PO BID PRN PRN PRN Reason: Constipation Last Admin: 01/17/20 20:36 Dose: 2 tablet Documented by: Sodium Chloride () 10 - 40 ml IV UD PRN PRN Reason: SALINE FLUSH Last Admin: 01/17/20 23:44 Dose: 10 ml Documented by: Zolpidem Tartrate (Ambien (Generic)) 5 mg PO QHS PRN PRN PRN Reason: INSOMNIA STROKE Vital Signs/Narrative: Vital Signs Temp Pulse Resp BP Pulse Ox 01/18/20 04:45 99.2 F H 70 16 152/68 H 96 Medical Necessity - Tobacco Use Smoking Status: Never smoker Tobacco Use: Non-smoker Assessment/Plan All Active Problems Fracture of femoral neck, left (Acute) #Acute traumatic fracture of the left femoral neck s/p right hemiarthroplasty * today is POD 1 * pain well controlled * PT./OT on board * on IV morphine, oxycodone nad tylenol prn for pain * incentive spirometry * fall precautions * # Parkinson;s disease: on carbidopa./levodopa # Dementia: on seroquel prn for agitation DVT prophylaxis; per orthopedics, to start PO eliquis 2.5mg bid x 3 weeks. [facility] 53194 Subs Hosp L2
[2020-01-18] MEDS: 0.9% Saline Lock 10 ML Syringe IV (08:32)
[2020-01-18] MEDS: CARBIDOPA/LEVODOPA CR 50/200 Tablet PO ×4 (10:14→20:36)
--- NOTE | 2020-01-18 10:28 | NURSING ---
Neupro 8 mg removed from rt thigh, discarded in pharmaceutical waste, witnessed by Karlie Juan Rn charge nurse.
--- NOTE | 2020-01-18 15:04 | CASEMGMT ---
Social Work Note SW reviewed PT/OT. Pt was dependent/max assist of two, unable to ambulate today. LISETH placed a call to [facility] and spoke with nurse Yaneth. Yaneth states she will need the ocular care technologist to call this worker back in regards to if they can accept pt back or not. LISETH faxed updated clinicals to [facility]. SW waiting for call from [facility] Manager Project to determine if [facility] is able to accept pt back or if pt will need to go to SNF. Plan: [facility] vs SNF Gena Matias DISTRICT BRANCH MANAGER, SHEET SORTER
--- NOTE | 2020-01-18 15:41 | CASEMGMT ---
Social Work Note LISETH placed a call to [facility] and spoke with Lashon Veterinary Poultry Inspector. LISETH updated Lashon on how pt did with PT/OT. Lashon states that she recommends pt go to SNF/TCU to get additional therapy before returning to [place]. LISETH spoke with RN, pt currently confused. LISETH attempted to call pt's son German, no answer, voicemail full, unable to leave message. LISETH placed a call to [facility] in TCU and put pt on TCU list. LISETH will try again to call pt's son as time allows or will try and speak to pt's son if he arrives to [facility]. Plan: TBD. Pt on TCU list if pt's son German is agreeable Gen[facility] FLORAL ARRANGER, KAYAK MAKER
--- NOTE | 2020-01-18 16:48 | CASEMGMT ---
Social Work Note LISETH placed another call to pt's son German to discuss discharge plans. LISETH updated German on how pt did with PT/OT today and that [place] is recommending short term stay at SNF/TCU at discharge. LISETH explained benefits of going to SNF vs C. LISETH verbally provided German with list of SNF that accept pt's insurances, reviewed Medicare ratings, and COVID protocols for SNF. LISETH spoke with German about TCU. German states he understands the benefits of pt going to SNF but also understands the benefits of pt returning to [facility] where pt has all of her belongings, own apartment, etc. German states he would like to speak to his sister my and then will give this worker a call tomorrow to confirm discharge plans. German agreeable to placing pt on TCU list. LISETH placed a call to [facility] in TCU, left message to put pt on TCU list. Plan: [facility] vs SNF Gena Matias GIFTED TEACHER, OTR [employer] TRUCK DRIVER
[2020-01-18] MEDS: QUEtiapine 25 MG Tablet PO (20:36)
--- NOTE | 2020-01-19 00:36 | NURSING ---
This RN entered room to check on patient at this time. Pt resting in bed, with catheter tubing in hand, balloon intact at catheter tip. No signs of pain/trauma noted to charlette-area. Attends in place on pt; pt yelling Don't touch me! Get out of my room!. Pt repositioned at this time with DATA INTEGRATION ANALYST Najma, bed alarm maintained. Will continue to monitor and assess.
[2020-01-19 02:59] VITALS: PULSE 83
[2020-01-19 05:32] VITALS: BP 147/51; PULSE 73; RESP 18; TEMP 37.4; O2SAT 100
[2020-01-19 07:14] LABS: Hematocrit 33.9 % (37-47); Hemoglobin 11.3 g/dL (12.0-15.0); Mean Corp Hgb Conc 33.3 g/dL (32-36); Mean Corpuscular Hgb 33.5 pg (27.0-32.0); Mean Corpuscular Volume 100.6 fL (81-99); Mean Platelet Vol. 9.2 fl (6.2-12.0); Platelet Count 212 K/mm3 (150-450); RBC Distribution Width CV 11.9 % (11.6-14.6); RBC Distribution Width SD 44.3 fl (35.1-43.9); Red Blood Count 3.37 M/mm3 (4.2-5.4); White Blood Count 7.7 K/mm3 (4.4-11.0)
[2020-01-19 08:45] VITALS: PULSE 75
[2020-01-19 08:51] VITALS: BP 147/80; PULSE 74; RESP 16; TEMP 36.3; O2SAT 98
[2020-01-19] MEDS: CARBIDOPA/LEVODOPA CR 50/200 Tablet PO ×2 (08:54→13:59)
[2020-01-19] MEDS: APIXABAN 2.5 MG TABLET PO (08:54)
--- NOTE | 2020-01-19 10:57 | CASEMGMT ---
Social Work Note LISETH received message from pt's son German requesting pt discharge to TCU today. German states he spoke with his family and they all agree on TCU. LISETH updated physician. LISETH did place a call to German. LISETH confirmed with German the plan is TCU today. LISETH reiterated that TCU doesn't allow visitors for 14 days. German states that he will be at [facility] around 1:00pm and would like to see pt before pt goes to TCU, requests pt doesn't go over to TCU until after 2:00pm. LISETH updated physician. LISETH placed a call to [facility] in TCU and updated her pt will be discharged to TCU today. LISETH placed a call to [facility] and spoke with staff to update that pt will be discharged to TCU today. Plan: TCU today Gena Matias GRAPHICS SPECIALIST, HYDRO TECHNICIAN
--- NOTE | 2020-01-19 11:07 | TREXTCAR_ITS ---
- Diet 01/17/20 16:37 Diet: Regular - General Is pt able to select menu?: No - Routine Orders/Code Status Enema Type: Fleetz Enema Frequency: Daily PRN Suppository Type: Dulcolax 10mg Suppository Frequency: Daily PRN Routine Lab Work: CBC [facility] - Wound(s) L knee Wound Type: Surgical Incision L hip Wound Type: Surgical Incision - Therapies Weight Bearing: Weight bearing as tolerated Physical Therapy: Eval and Treat Occupational Therapy: Eval and Treat - Allergies/Procedures Done in Hospital Allergies/Adverse Reactions: Allergies cyclobenzaprine [From Flexeril] Allergy (Verified 01/16/20 14:21) NEEDS FOLLOW-UP oxycodone Allergy (Verified 01/16/20 14:21) NEEDS FOLLOW-UP propoxyphene [From Darvon] Allergy (Verified 01/16/20 14:21) NEEDS FOLLOW-UP Procedures: None - Type of Care/Length of Stay Estimated LOS: Convalescent Care Less Than 30 days Type of Care Needed: Skilled Rehab Potential: Fair Prognosis: Fair - Additional Orders/Day of Discharge Day of Discharge: 01/19/20 - Follow Up Care Primary Care Physician: Tiburcio Rogers MD [Primary Care Provider] - Please follow up with your Primary Care Physician in: 1-2 weeks Please Follow Up With: Deshaun Weir DO When: 1-2 weeks
--- NOTE | 2020-01-19 11:16 | DS.PCM_ITS ---
Discharge Date and Diagnosis - Problem List Patient Problems: Active and Suspected Problems Fracture of femoral neck, left (Acute) Date of Admission: 01/16/20 Date of Discharge: 01/19/20 - Primary Discharge Diagnosis Acute Problems: Active Problems Fracture of femoral neck, left (Acute) - Secondary Discharge Diagnosis Chronic Problems: Chronic Problems Debility (Chronic) Dementia (Chronic) Parkinsons disease (Chronic) Hospital Course and Treatment Imaging Results: Diagnostic Data Brain CT 01/16/20 14:49 IMPRESSION: Chronic involutional changes of the brain. Electronically Signed: Leticia Treviño at 16:00 EDT Tel , Service support , Hip/Pelvis X-Ray 01/16/20 14:51 IMPRESSION: There is an impacted subcapital left chronic fracture. Electronically Signed: Leticia Treviño at 16:06 EDT Tel , Service support , Cervical Spine CT 01/16/20 14:54 IMPRESSION: Multilevel degenerative changes, as described above. Electronically Signed: Leticia Treviño at 16:04 EDT Tel , Service support , Chest X-Ray 01/16/20 15:45 IMPRESSION: Degenerative changes, as described above. No demonstrated acute cardiopulmonary process. Electronically Signed: Leticia Treviño at 16:06 EDT Tel , Service support , Lower Extremity CT 01/16/20 18:45 IMPRESSION: Findings consistent with impacted subcapital fracture of left femoral neck without callus formation suggestive of recent injury.. Clinical correlation recommended Electronically Signed: Galdino Armando MD at 19:17 EDT , Service support , Hip X-Ray 01/17/20 14:50 IMPRESSION: Status post total left hip replacement changes seen with implants appearing in good position. Electronically Signed: Kashmir Zambrano MD at 16:03 EDT , Service support , orthopedic surgery- Dr Weir Operations: total hip replacement Procedures: None Summary of Care Provided: The patient is a 79 year old F with a past medical history as outlined was admitted through the ED on 01/16/2020 on account of a mechanical fall. Patient is a resident of an assisted living facility and was using her walker to ambulate. However she tripped and fell on her left side and started having severe left-sided pain which was aggravated by movement and she could not weight-bear. Review of systems otherwise negative. In the ED, vitals were stable and labs only significant for hemoglobin of 11.9. EKG showed normal sinus rhythm with no acute ST changes. Chest x-ray showed no acute cardiopulmonary findings and CT of the brain showed no evidence of intracranial bleed. X-ray of the pelvis and left hip showed a left subcapital femoral neck fracture which was thought to be chronic. CT of the left lower extremity however revealed an impacted subcapital fracture of the left femoral neck which was thought to be acute. She was admitted and managed for acute traumatic impacted subcapital fracture of the left femoral neck due to mechanical fall. Orthopedics was consulted. She was cleared for surgery with moderate risk. She had right hip hemiarthroplasty on 01/17/2020 and tolerated procedure well. Postop course was unremarkable. Patient was started on p.o. Eliquis 2.5 mg twice daily for DVT prophylaxis and work with physical therapy. Patient remained stable and was discharged to the transitional care unit for rehab on 01/19/2020. She was discharged with a prescription for p.o. Eliquis 2.5 mg twice daily for 21 days for DVT prophylaxis. She is to follow-up with her primary care doctor and follow-up with orthopedic surgery in 1 to 2 weeks. Patient seen and examined prior to discharge. She had no complaints and felt well. Review of symptoms otherwise negative. Labs and vitals reviewed. Home medication reviewed and reconciled. O/E: Vital Signs Temp Pulse Resp BP Pulse Ox 97.4 F L 74 16 147/80 H 98 01/19/20 08:51 01/19/20 08:51 01/19/20 08:51 01/19/20 08:51 01/19/20 08:51 [] General: Alert, Oriented x3, Cooperative HEENT: Atraumatic, PERRLA, EOMI, Normocephalic Oral: Moist Mucosa Neck: Supple, No JVD, Negative Carotid Bruits Lungs: Clear to auscultation, Normal air movement, No rhonchi, No wheeze, No rales Cardiovascular: Regular rate, Regular Rhythm, Normal S1, Normal S2, No murmurs Abdomen: Bowel Sounds Present, Soft, Non Tender, Non-Distended, No Hepato- splenomegaly Extremities: No clubbing, No cyanosis, No edema, Capillary Refill Less than 3 Seconds Skin: No rashes, No breakdown Musculoskeletal: No Tenderness to Palpation of Joints or Extremities; surgical dressing over right hip Lymphatic: No Cervical, Supraclavicular, or Inguinal Adenopathy Neurological: Cranial nerves II-XII grossly intact Psych/Mental Status: Normal Affect, Appropriate, Alert and oriented to time, place, person, mood and affect Plan is for discharge to TCU today. Patient Problems: Active and Suspected Problems Fracture of femoral neck, left (Acute) - Physical Exam Vitals/I&O's: Vital Signs Temp Pulse Resp BP Pulse Ox 97.4 F L 74 16 147/80 H 98 01/19/20 08:51 01/19/20 08:51 01/19/20 08:51 01/19/20 08:51 01/19/20 08:51 Oxygen Flow Rate (L/min) 2 Oxygen Delivery Method Room Air Weight: 122 lb 2.177 oz Body Mass Index (BMI) 20.9 Intake and Output for Last 24 Hours 01/17/20 01/18/20 01/19/20 23:59 23:59 23:59 Intake Total 2540 / 2690 1809.75 / 1959.75 150 / 150 Output Total 600 / 1050 1150 / 1475 375 / 375 Balance 1940 / 1640 659.75 / 484.75 -225 / -225 Laboratory Results 01/19/20 06:56: WBC 7.7, RBC 3.37 L, Hgb 11.3 L, Hct 33.9 L, MCV 100.6 H, MCH 33.5 H, MCHC 33.3, RDW Std Deviation 44.3 H, RDW Coeff of Bryanna 11.9, Plt Count 212, MPV 9.2 Current Medications Acetaminophen (Tylenol) 650 mg PO Q6H PRN PRN PRN Reason: Pain Score 1-10/Temp > 100.7 F Last Admin: 01/18/20 03:14 Dose: 650 mg Documented by: Apixaban (Eliquis) 2.5 mg PO 799,[id number] [facility] Last Admin: 01/19/20 08:54 Dose: 2.5 mg Documented by: Carbidopa/Levodopa (Sinemet Cr) 1 tablet PO 4X/DAY [facility] Last Admin: 01/19/20 08:54 Dose: 1 tablet Documented by: Morphine Sulfate () 2 mg IV Q3H PRN PRN PRN Reason: Pain Score 6-10/10 Last Admin: 01/17/20 23:44 Dose: 2 mg Documented by: Ondansetron HCl (Zofran) 4 mg IV Q6H PRN PRN PRN Reason: NAUSEA Quetiapine Fumarate (Seroquel) 25 mg PO QHS [facility] Last Admin: 01/18/20 20:36 Dose: 25 mg Documented by: Rotigotine (Neupro) 8 mg TRANSDERM. DAILY [facility] Last Admin: 01/19/20 10:46 Dose: 8 mg Documented by: Senna/Docusate Sodium (Senokot-S, Shannan-Colace) 2 tablet PO BID PRN PRN PRN Reason: Constipation Last Admin: 01/17/20 20:36 Dose: 2 tablet Documented by: Sodium Chloride () 10 - 40 ml IV UD PRN PRN Reason: SALINE FLUSH Last Admin: 01/18/20 08:32 Dose: 10 ml Documented by: Zolpidem Tartrate (Ambien (Generic)) 5 mg PO QHS PRN PRN PRN Reason: INSOMNIA Discharge Diet: Low fat/ Low Cholesterol Discharge Activity: Return to Normal Activity Weight Bearing Status: Weight bearing as tolerated Call your doctor if you observe: Fever of 101 or Higher, Coldness, Increased Pain, Uncontrolled pain Home Medications: Medications to take at Discharge Acetaminophen [Tylenol] 650 mg PO BID 01/16/20 Carbidopa/Levodopa [Carbidopa-Levo ER 50-200 Tab] 1 tab PO 4X/DAY 01/16/20 Cholecalciferol (VIT D3) [Vitamin D3] 1,000 unit PO DAILY 01/16/20 Magnesium Hydroxide [Milk Of Magnesia] 30 ml PO Q12H PRN PRN 01/16/20 Multivitamin [Flintstones] 1 ea PO DAILY 01/16/20 Quetiapine Fumarate [Seroquel] 25 mg PO QHS 01/16/20 Rotigotine [Neupro] 8 mg TD DAILY 01/16/20 Apixaban [Eliquis] 2.5 mg PO 21 Days #42 tab 01/19/20 Following Prescriptions Were Given to Patient: Apixaban [Eliquis] 2.5 mg PO 21 Days #42 tab Prescription Printed Primary Care Physician: Tiburcio Rogers MD [Primary Care Provider] - Please follow up with your Primary Care Physician in: 1-2 weeks Please Follow Up With: Deshaun Weir DO When: 1-2 weeks Disposition[facility] Minutes spent on discharge:: 45 Patient Condition:: Stable Medical Necessity - Tobacco Use Smoking Status: Never smoker Tobacco Use: Non-smoker Meaningful Use Info Meaningful Use Diagnoses (Choose all that apply): None applicable Inpatient E&M: 81623 Disch Hosp
[2020-01-19 14:14] VITALS: PULSE 86
[2020-01-19 15:00] VITALS: BP 92/40; PULSE 86; RESP 14; TEMP 36.8; O2SAT 100
--- NOTE | 2020-01-19 16:09 | NURSING ---
report called to paxton moreno rn in tcu. pt going to [facility]
== END 2020-01-19 16:21 | disposition skilled nursing facility (03) | DRG 522 ==
LOC: ED 15:48 → MS3 20:07
PROVIDERS: Orthopaedic Surgery; Admitting Provider Hospitalist; Emergency Provider Emergency Medicine; PCP Family Medicine; Visit Provider Student in an Organized Health Care Education/Training Program
PROC: 0SRR0JZ Replacement of Right Hip Joint, Femoral Surface with Synthetic Substitute, Open Approach (ICD-10-PCS; CPT 27125; principal; 2020-01-17 12:40)
DX: S72.012A Unspecified intracapsular fracture of left femur, initial encounter for closed fracture (principal); W18.30XA Fall on same level, unspecified, initial encounter; Y93.01 Activity, walking, marching and hiking; Y99.8 Other external cause status; E78.5 Hyperlipidemia, unspecified; I25.10 Atherosclerotic heart disease of native coronary artery without angina pectoris; F02.80 Dementia in other diseases classified elsewhere, unspecified severity, without behavioral disturbance, psychotic disturbance, mood disturbance, and anxiety; G20 Parkinson's disease; Z79.899 Other long term (current) drug therapy; R53.81 Other malaise; Y92.129 Unspecified place in nursing home as the place of occurrence of the external cause
CPT/HCPCS: 36415; 70450; 71045; 72125; 73502; 73700; 80048; 80053; 81001; 84484; 85025; 85027; 85610; 86850; 86900; 86901; 87635; 93005; 97110; 97162; 97166; 97530; 97535; 99251; 99285; C1776; J7030; J7120; A4216; G0463; J2405; U0003

== ENCOUNTER 2020-01-19 16:31 | Inpatient (IN) | payer MEDICARE, BC, SELFPAY ==
[2020-01-17 12:19] VITALS: BMI 20.9
[2020-01-19 16:36] VITALS: PULSE 81; RESP 16; O2SAT 99; BMI 20.5
[2020-01-19 18:18] VITALS: BP 113/47; PULSE 70; RESP 16; TEMP 37.3; O2SAT 96
[2020-01-19 18:21] VITALS: BMI 20.5
[2020-01-19] MEDS: APIXABAN 2.5 MG TABLET PO (22:20)
[2020-01-19] MEDS: CARBIDOPA/LEVODOPA CR 50/200 Tablet PO (22:21)
[2020-01-19] MEDS: QUEtiapine 25 MG Tablet PO (22:21)
[2020-01-20 05:00] VITALS: BP 123/55; PULSE 65; RESP 14; TEMP 36.9; O2SAT 96
--- NOTE | 2020-01-20 07:09 | PCA ---
CHRIS Hughes and i went into perform AM/Oral care on patient we began washing pt's face and she started screaming they are bothering me, my children are bothering me i reassured patient that all we were doing was washing her up for the day and making sure she is dry as she had not voided for previous shift, pt began fighting staff clenching body up and throwing her arms around the bed punching me in the left abdomen area. I told pt that she was at the hospital and this is part of our daily routine is to make sure she is clean an dry. pt allowed us to finish job. repostioned pt in bed. when done with AM care noticed pt needed oral care done i asked pt if her mouth was dry pt seemed to ignore staff's questions when asked. i got a moistened toothette swab to perform oral care on pt explain to pt was i was going to do and she began thrashing her head side to side and spitting. I ended my attempt to perform oral care.
[2020-01-20 08:58] LABS: Absolute Lymphocyte Count 1.07 X10^3/uL (0.83-4.51); Absolute Neutrophil Count 3.9 X10^3/uL (2.0-7.7); Basophil# 0.03 X10^3/uL; Basophil% 0.5 % (0-1); Eosinophil# 0.21 X10^3/uL; Eosinophils% 3.5 % (0-5); Hematocrit 30.5 % (37-47); Hemoglobin 9.7 g/dL (12.0-15.0); Lymphocyte # 1.07 X10^3/ul (4.0); Lymphocyte % 17.8 % (19-41); Mean Corp Hgb Conc 31.8 g/dL (32-36); Mean Corpuscular Hgb 32.7 pg (27.0-32.0); Mean Corpuscular Volume 102.7 fL (81-99); Mean Platelet Vol. 9.7 fl (6.2-12.0); Monocyte# 0.73 X10^3/uL; Monocyte% 12.2 % (0-10); NRBC Flagged by Analyzer 0 % (0-5); Neutrophil # 3.93 X10^3/uL (2.7-7.7); Neutrophil % 65.5 % (47-70); Platelet Count 207 K/mm3 (150-450); RBC Distribution Width CV 12.2 % (11.6-14.6); RBC Distribution Width SD 46.1 fl (35.1-43.9); Red Blood Count 2.97 M/mm3 (4.2-5.4)
[2020-01-20 09:05] LABS: Anion Gap 6 (5-15); BUN 18 mg/dL (7-18); Calcium,Total 8.3 mg/dL (8.5-10.1); Chloride 101 mmol/L (98-107); Creatinine, Serum 0.54 mg/dL (0.55-1.02); EST Glomerular Filtration Rate 114 mL/min (>60); Est Glom Filt Rate - Afr Amer 138 mL/min (>60); Estimated Creatinine Clearance 38.56 ml/min; Glucose 90 mg/dL (74-106); Potassium 3.5 mmol/L (3.5-5.1); Sodium Level 133 mmol/L (136-145)
--- NOTE | 2020-01-20 09:07 | NURSING ---
PT ASKED FOR NURSE TO COME TO ROOM. PT STATED SHE DID NOT LIKE THE THERAPY IN HER ROOM. THIS NURSE TRIED TO EXPLANE TO PT ABOUT THERAPY AND WHY SHE IS HERE. ASKED PT IF SHE WOULD TAKE HER MEDS,PT STATED NO AND TOLD THIS NURSE TO GET OUT! RN AWARE.
[2020-01-20 10:50] VITALS: PULSE 62; RESP 18; O2SAT 92
--- NOTE | 2020-01-20 11:01 | NURSING ---
PT REFUSING TO LET THIS NURSE GIVE FLU AND TB SHOT. PT ALSO REFUSING TO DO THERAPY. THERAPY AND THIS NURSE GOT PT TO RECLINER. PT DID NOT HELP AT ALL. RN AWARE.
[2020-01-20] MEDS: CARBIDOPA/LEVODOPA CR 50/200 Tablet PO ×3 (11:53→20:58)
--- NOTE | 2020-01-20 12:00 | PCM.HP.STD ---
Problem List (1) Fall Status: Acute (2) Hyperlipidemia Status: Chronic (3) Coronary artery disease Status: Chronic (4) Hypertension Status: Chronic (5) Vitamin D deficiency Status: Chronic (6) Fracture of femoral neck, left Status: Acute (7) Debility Status: Acute (8) Dementia Status: Chronic (9) Parkinsons disease Status: Chronic History of Present Illness Date of Admission: 01/19/20 Chief Complaint: Here for rehabilitation, strengthening, prior to discharge to [facility]. 01/16/20 The patient is a 79 year old Female with below past medical history presented to [facility] with fall. 01/16/20 CT brain chronic involutional changes of brain. 01/16/20 EKG normal sinus rhythm, moderate voltage criteria for LVH, maybe normal variant. 01/16/20 X-ray pelvis, left hip showed impacted subcapital left chronic fracture. 01/16/20 CT cervical spine multilevel degenerative changes. 01/16/20 Chest X-ray showed degenerative changes, no acute cardiopulmonary process. 01/16/20 CT left hip recent impacted subcapital fracture of left femoral neck. Fall with acute left hip fracture. 01/16/20 Admit to Hospital. Pain control, PT/OT. Prepare for surgery, risk moderate. 01/17/20 Dr. Weir performed left hip hemiarthroplasty. Postoperative course unremarkable. Eliquis 2.5MG BID x 21 days for DVT prophylaxis. 01/19/20 Admit to TCU with debility, here for rehabilitation, strengthening, prior to discharge to [facility]. Past Medical History Past Medical History (Chronic Problems): Chronic Problems Hyperlipidemia (Chronic) Coronary artery disease (Chronic) Hypertension (Chronic) Vitamin D deficiency (Chronic) Dementia (Chronic) Parkinsons disease (Chronic) Allergies cyclobenzaprine [From Flexeril] Allergy (Verified 01/16/20 14:21) NEEDS FOLLOW-UP oxycodone Allergy (Verified 01/16/20 14:21) NEEDS FOLLOW-UP propoxyphene [From Darvon] Allergy (Verified 01/16/20 14:21) NEEDS FOLLOW-UP Home Medications: Ambulatory Orders Medication Instructions Recorded Acetaminophen [Tylenol] 650 mg PO BID 01/16/20 Carbidopa/Levodopa [Carbidopa-Levo 1 tab PO 4X/DAY 01/16/20 ER 50-200 Tab] Quetiapine Fumarate [Seroquel] 25 mg PO QHS 01/16/20 Rotigotine [Neupro] 8 mg TD DAILY 01/16/20 Apixaban [Eliquis] 2.5 mg PO 01/19/20 Surgical History: total hip arthroplasty - Left hip hemiarthroplasty., total knee arthroplasty, - - Surgical repair of the fractured left humerus with internal fixation. Psychiatric History: No pertinent psych hx FRONT END DEVELOPER DESIGNER History: No pertinent FRONT END DEVELOPER DESIGNER history Lives: [facility] Smoking Status: Never smoker Tobacco Use: Non-smoker Alcohol: None Drugs: None - *Family History Maternal History Items: No pertinent history Paternal History Items: No pertinent history Review of Systems Constitutional: Denies: Chills, Fever, Weight Change HEENT: Denies: Head Aches, Sinus Congestion, Sinus Drainage Cardiovascular: Denies: Chest Pain, Palpitations Respiratory: Denies: Cough, Shortness of breath at rest, Sputum production Gastrointestinal: Denies: Abdominal Pain, Nausea, Vomiting Genitourinary: Denies: Dysuria Musculoskeletal: Denies: Joint Pain, Joint Tenderness Skin: Denies: Rash, Wounds Neurological: Denies: Numbness, Tingling, Focal weakness Psychiatric: Denies: Anxiety, Depression, Homicidal Ideations, Suicidal Ideations Hematologic/ Lymphatic: Denies: Easy Bruising, Easy Bleeding VTE Information - Inpt Only VTE Present on Admission: No VTE Mechan Device Prophylaxis: Knee High JONATHAN Hose VTE Pharm Prophylaxis ordered?: Yes Patient Problems: Active and Suspected Problems Fall (Acute) - Physical Exam Vitals/I&O's: Vital Signs Temp Pulse Resp BP Pulse Ox 98.4 F 65 14 123/55 H 96 01/20/20 05:00 01/20/20 05:00 01/20/20 05:00 01/20/20 05:00 01/20/20 05:00 Oxygen Delivery Method Room Air Weight: 54.431 kg Body Mass Index (BMI) 20.5 Intake and Output for Last 24 Hours 01/18/20 01/19/20 01/20/20 23:59 23:59 23:59 Intake Total 120 / 120 Balance 120 / 120 General: Alert, Oriented x3, Cooperative HEENT: Atraumatic, PERRLA, EOMI, Normocephalic Neck: Supple, No JVD, Negative Carotid Bruits Lungs: Clear to auscultation, Normal air movement Cardiovascular: Regular rate, No murmurs Abdomen: Bowel Sounds Present, Soft, Non Tender Extremities: No edema, Capillary Refill Less than 3 Seconds Skin: No rashes, No breakdown Musculoskeletal: No Tenderness to Palpation of Joints or Extremities Neurological: Cranial nerves II-XII grossly intact Psych/Mental Status: Normal Affect, Appropriate Laboratory Results 01/20/20 05:18: COVID-19 (ELAINE) Not Detected 01/20/20 07:30: WBC 6.0, RBC 2.97 L, Hgb 9.7 L, Hct 30.5 L, MCV 102.7 H, MCH 32.7 H, MCHC 31.8 L, RDW Std Deviation 46.1 H, RDW Coeff of Bryanna 12.2, Plt Count 207, MPV 9.7, Immature Gran % (Auto) 0.500, Neut % (Auto) 65.5, Lymph % (Auto) 17.8 L, Moffat % (Auto) 12.2 H, Eos % (Auto) 3.5, Baso % (Auto) 0.5, Absolute Neuts (auto) 3.9, Absolute Lymphs (auto) 1.07, Nucleated RBC % 0 01/20/20 07:30: Sodium 133 L, Potassium 3.5, Chloride 101, Carbon Dioxide 26.0, Anion Gap 6, BUN 18, Creatinine 0.54 L, Estim Creat Clear Calc 38.56, Est GFR (MDRD) Af Amer 138, Est GFR (MDRD) Non-Af 114, BUN/Creatinine Ratio 33.0 H, Glucose 90, Calcium 8.3 L Current Medications Acetaminophen (Tylenol) 650 mg PO BID [facility] Last Admin: 01/20/20 09:06 Dose: Not Given Documented by: Apixaban (Eliquis) 2.5 mg PO 0800,2000 [facility] Last Admin: 01/20/20 09:07 Dose: Not Given Documented by: Carbidopa/Levodopa (Sinemet Cr) 1 tablet PO ACHS [facility] Last Admin: 01/20/20 11:53 Dose: 1 tablet Documented by: Nutritional Formula (Lactose Free) (Ensure Enlive) 120 ml PO 4X/DAY [facility] Last Admin: 01/20/20 11:59 Dose: 120 ml Documented by: Polysaccharide Iron Complex (Ferrex 150) 150 mg PO DAILYCM [facility] Quetiapine Fumarate (Seroquel) 25 mg PO QHS [facility] Last Admin: 01/19/20 22:21 Dose: 25 mg Documented by: Rotigotine (Neupro) 8 mg TRANSDERM. DAILY [facility] Senna/Docusate Sodium (Senokot-S, Shannan-Colace) 2 tablet PO BID PRN PRN PRN Reason: CONSTIPATION Tuberculin PPD (Tubersol, Aplisol, Ppd) 5 tu ID X1 ONE Stop: 01/27/20 10:01 Zolpidem Tartrate (Ambien (Generic)) 5 mg PO QHS PRN PRN PRN Reason: INSOMNIA Assessment/Plan All Active Problems Fall (Acute) Fracture of femoral neck, left (Acute) Debility (Acute) 79 year old female with below past medical history hospitalized for left hip fracture, underwent left hip hemiarthroplasty 01/17/[address] Weir, admitted to TCU with debility, here for rehabilitation, strengthening, prior to discharge to [facility]. Debility - PT/OT. Pain - Tylenol 1000MG TID, Oxycodone 2.5MG Q4H PRN pain (6-10). Bowel - Miralax 17GM daily, Senna/colace 2 tablets BID, Dulcolax 10MG [place] daily PRN. Adult immunization - Administer Prevnar 13, Pneumovax 23, Fluzone as appropriate. DVT prophylaxis - Eliquis 2.5MG BID thru 02/07/20. Parkinson Disease - Sinemet CR 50/200MG QACHS, Neupro 8MG TD daily. Nutrition - Ensure Enlive 120ML 4x/day. 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 Insomnia - Zolpidem 5MG QHS PRN.
[2020-01-20] MEDS: Acetaminophen 500 MG Tablet 1000 MG PO ×2 (13:33→20:58)
--- NOTE | 2020-01-20 13:51 | NURSING ---
pt asked to get on toilet. heavy x2 assist to bed side commode. pt does not help in moving legs and feet.
[2020-01-20 14:19] VITALS: BP 125/55; PULSE 67; RESP 16; TEMP 37.4; O2SAT 96
--- NOTE | 2020-01-20 16:04 | PCA ---
Addendum entered by Corie Nazario 01/21/20 11:34: forgot to add that when passing meal trays pt was face timing family pt made several comments to family about how staff was grabbing her forearms and holding her down scratching her an talking to her in a nasty manner, that she couldn't believe she was in such a place. family stated to reassure pt Lyn are you sure that that those things are really happening to you? an that your not just thinking them an believing that it is true. pt continued the facetime call with family and i exited the room. Original Note: Spoke with pts son German and his via phone conversation 01/20/2020 at 3:45pm. family asked if we recvied the clothing that was dropped off and if pt needed anything at at moment from her place of residence, i asked pt if she needed anything pt did not answer me. i looked in her closet and noticed that she had clothing all in closet. got back on phone with MENDOZA and told her that pt did not answer me when asked about any additional wants/needs from [facility]. MENDOZA said that she was going to go over to [place] and get pts ipad to be able to talk to family members easier. i told family that would be a great idea for her. son got on the phone with me and explained that his mom had a history of Parkinson's disease and that she has a very hard time adjusting from place to place so when she imagines things she believes they are true. asked if a licensed social worker would see his mom NEPTALI told him i would call right away and ended call with family, left a message for licensed social worker Lissett.
[2020-01-20] MEDS: Senna/Docusate Sodium 1 Tablet 2 TABLET PO (17:04)
[2020-01-20] MEDS: Tuberculin,Purif.prot.deriv. 50 TU/ML Vial 5 ML ID (18:34)
--- NOTE | 2020-01-20 18:37 | NURSING ---
pt a little more corporative this evening. let this nurse give tb test. rn aware.
[2020-01-20] MEDS: APIXABAN 2.5 MG TABLET PO (20:58)
[2020-01-20] MEDS: QUEtiapine 25 MG Tablet PO (20:58)
[2020-01-21] MEDS: Polyethylene Glycol 3350 17 GM PACKET PO (04:16)
[2020-01-21] MEDS: Senna/Docusate Sodium 1 Tablet 2 TABLET PO ×2 (04:17→17:49)
[2020-01-21] MEDS: Acetaminophen 500 MG Tablet 1000 MG PO ×3 (04:17→22:04)
[2020-01-21] MEDS: CARBIDOPA/LEVODOPA CR 50/200 Tablet PO ×4 (04:17→22:06)
[2020-01-21] MEDS: ROTIGOTINE 4 MG 8 MG TD (04:18)
[2020-01-21 04:28] VITALS: BP 132/82; PULSE 57; RESP 15; TEMP 36.4; O2SAT 89
[2020-01-21 06:19] LABS: Hematocrit 30.7 % (37-47); Hemoglobin 9.7 g/dL (12.0-15.0)
[2020-01-21] MEDS: APIXABAN 2.5 MG TABLET PO ×2 (08:22→22:04)
[2020-01-21] MEDS: Iron Polysaccharide Complex 150 MG CAPSULE PO (08:22)
--- NOTE | 2020-01-21 10:31 | NURSING ---
pt daughter called wanting to speak with RASTA Galeana regarding her mothers history of mental issues after having surgeries in past. Family knows that pt is getting really good care. Pt has not complained to staff but has declined certain medications at times but took them later in shift. Message left with PIANO TUNER to notify son to get the background on pt.
--- NOTE | 2020-01-21 11:31 | NURSING ---
pt daughter law called and would like a pediatric social worker to speak with pt today. RN curb supervisor notified and message left with ER pediatric social worker, awaiting return call.
--- NOTE | 2020-01-21 13:38 | NURSING ---
PT STATED TO THIS NURSE THAT SHE FEELS LIKE WE ARE HOLDING HER CAPTIVE. TALKED TO PT AND ASSURED HER WE WERE NOT HOLDING HER CAPTIVE AND ARE TRYING TO HELP HER GET BETTER AND STRONGER SO SHE COULD GO HOME. PT STATED WELL SHE FEELS LIKE IT.RN AWARE
[2020-01-21 14:20] VITALS: BP 123/69; PULSE 76; RESP 15; TEMP 36.9; O2SAT 97
--- NOTE | 2020-01-21 15:54 | RAD_ITS ---
STUDY: X-RAY CHEST REASON FOR EXAM: Female, 79 years old. Shortness of breath TECHNIQUE: Frontal and lateral views of the chest COMPARISON: 16 January 2020 FINDINGS: The lungs are clear and expanded. There is no demonstrated pleural abnormality. Normal size heart. Normal mediastinum and margaert. Normal visualized pulmonary arteries. Normal visualized aortic arch and descending thoracic aorta. Normal visualized thoracic spine. Normal visualized ribs, clavicles, and shoulders. There is no demonstrated abnormality of the visualized soft tissue structures of the upper abdomen. There is lumbar spinal scoliosis. RAD/Chest PA and Lateral IMPRESSION: Normal x-ray examination of the chest. Electronically Signed: Asad Patel, at 18:36 EDT Tel , Service support ,
--- NOTE | 2020-01-21 15:59 | RAD_ITS ---
STUDY: X-RAY - ABDOMEN/PELVIS REASON FOR EXAM: Female, 79 years old. Confusion, shortness of breath. TECHNIQUE: Frontal view of the abdomen COMPARISON: None. FINDINGS: There is no intestinal obstruction. There are no suspicious calcifications projecting over the abdomen. There is moderate to severe S-shaped scoliosis of the lumbar spine. There is recent left total hip replacement with skin sri outlining the incision. The skeleton is osteoporotic. RAD/Abdomen Single View IMPRESSION: Unremarkable abdomen. Electronically Signed: Asad Patel, at 18:35 EDT Tel , Service support ,
[2020-01-21 16:39] LABS: Absolute Lymphocyte Count 0.63 X10^3/uL (0.83-4.51); Basophil# 0.03 X10^3/uL; Basophil% 0.6 % (0-1); Eosinophil# 0.18 X10^3/uL; Eosinophils% 3.4 % (0-5); Hematocrit 31.1 % (37-47); Lymphocyte # 0.63 X10^3/ul (4.0); Lymphocyte % 11.8 % (19-41); Mean Corp Hgb Conc 32.2 g/dL (32-36); Mean Corpuscular Volume 102.6 fL (81-99); Mean Platelet Vol. 8.8 fl (6.2-12.0); Monocyte% 9.3 % (0-10); NRBC Flagged by Analyzer 0 % (0-5); Neutrophil % 74.5 % (47-70); Platelet Count 270 K/mm3 (150-450); RBC Distribution Width CV 12.1 % (11.6-14.6); RBC Distribution Width SD 45.9 fl (35.1-43.9); Red Blood Count 3.03 M/mm3 (4.2-5.4); White Blood Count 5.4 K/mm3 (4.4-11.0)
[2020-01-21 16:55] LABS: Anion Gap 5 (5-15); BUN 20 mg/dL (7-18); BUN/Creat Ratio 35.5 RATIO (10-20); Calcium,Total 8.6 mg/dL (8.5-10.1); Chloride 105 mmol/L (98-107); Creatinine, Serum 0.56 mg/dL (0.55-1.02); EST Glomerular Filtration Rate 110 mL/min (>60); Est Glom Filt Rate - Afr Amer 133 mL/min (>60); Estimated Creatinine Clearance 38.53 ml/min; Glucose 105 mg/dL (74-106); Potassium 4.1 mmol/L (3.5-5.1); Sodium Level 138 mmol/L (136-145)
--- NOTE | 2020-01-21 17:09 | NURSING ---
Spoke with [facility] earlier in shift regarding POA paperwork and med list. staff suppose to be faxing papers, called again & spoke to lily. Lily unable to find POA paperwork, daughter in [place] stating that they have it. Will update RASTA Galeana. code status is [id number], verified w/faxed paperwork.
--- NOTE | 2020-01-21 18:38 | NURSING ---
verified neupro patches to left upper arm.
[2020-01-21] MEDS: QUEtiapine 25 MG Tablet PO (22:05)
[2020-01-22 05:00] VITALS: BP 147/53; PULSE 67; RESP 18; TEMP 36.8; O2SAT 96
[2020-01-22] MEDS: Polyethylene Glycol 3350 17 GM PACKET PO (06:57)
[2020-01-22] MEDS: Acetaminophen 500 MG Tablet 1000 MG PO ×2 (06:57→21:39)
[2020-01-22] MEDS: ROTIGOTINE 4 MG 8 MG TD (06:58)
[2020-01-22] MEDS: APIXABAN 2.5 MG TABLET PO ×2 (08:51→21:39)
[2020-01-22] MEDS: Iron Polysaccharide Complex 150 MG CAPSULE PO (08:52)
[2020-01-22] MEDS: CARBIDOPA/LEVODOPA CR 50/200 Tablet PO ×4 (09:01→21:39)
--- NOTE | 2020-01-22 10:15 | NURSING ---
Spoke with Dr. Villeda's office, pt surgical incision to remain open to air, sri to be removed on 01/31/20 and follow-up appt to be scheduled after discharge.
--- NOTE | 2020-01-22 10:24 | PCM.PN.RX ---
<MichaelAziza M - Last Filed: 01/22/20 10:24> Progress Note - Pharmacy Subjective: TCU ADMISSION Objective: Allergies cyclobenzaprine [From Flexeril] Allergy (Verified 01/16/20 14:21) NEEDS FOLLOW-UP oxycodone Allergy (Verified 01/16/20 14:21) NEEDS FOLLOW-UP propoxyphene [From Darvon] Allergy (Verified 01/16/20 14:21) NEEDS FOLLOW-UP Current Medications Generic Name Dose Route Start Last Admin Trade Name Freq PRN Reason Stop Dose Admin Acetaminophen 1,000 mg 01/20/20 14:00 01/22/20 06:57 Tylenol PO 1,000 mg TID RAKAN Administration Apixaban 2.5 mg 01/19/20 20:00 01/22/20 08:51 Eliquis PO 02/07/20 23:59 2.5 mg 0800,2000 RAKAN Administration Bisacodyl 10 mg 01/20/20 12:16 Dulcolax RECTAL DAILY PRN Constipation Carbidopa/Levodopa 1 tablet 01/19/20 22:00 01/22/20 09:01 Sinemet Cr PO 1 tablet ACHS RAKAN Administration Nutritional Formula (Lactose Free) 120 ml 01/20/20 06:00 01/22/20 06:54 Ensure Enlive PO 120 ml 4X/DAY RAKAN Administration Polyethylene Glycol 17 gm 01/21/20 06:00 01/22/20 06:57 Miralax PO 17 gm DAILY RAKAN Administration Polysaccharide Iron Complex 150 mg 01/21/20 08:00 01/22/20 08:52 Ferrex 150 PO 150 mg DAILYCM RAKAN Administration Quetiapine Fumarate 25 mg 01/19/20 22:00 01/21/20 22:05 Seroquel PO 25 mg QHS RAKAN Administration Rotigotine 8 mg 01/21/20 06:00 01/22/20 06:58 Neupro TD 8 mg DAILY RAKAN Administration Senna/Docusate Sodium 2 tablet 01/20/20 18:00 01/22/20 08:32 Senokot-S, Shannan-Colace PO Not Given BID RAKAN Tuberculin PPD 5 tu 01/27/20 10:00 Tubersol, Aplisol, Ppd ID 01/27/20 10:01 X1 ONE Zolpidem Tartrate 5 mg 01/19/20 16:58 Ambien (Generic) PO QHS PRN PRN INSOMNIA Problem List Fall (Acute) Hyperlipidemia (Chronic) Coronary artery disease (Chronic) Hypertension (Chronic) Vitamin D deficiency (Chronic) Vital Signs Temp Pulse Resp BP Pulse Ox 98.3 F 67 18 147/53 H 96 01/22/20 05:00 01/22/20 05:00 01/22/20 05:00 01/22/20 05:00 01/22/20 05:00 Oxygen Delivery Method Room Air Weight: 54.4 kg Body Mass Index (BMI) 20.5 Sodium 138 mmol/L (136-145) 01/21/20 16:23 Potassium 4.1 mmol/L (3.5-5.1) 01/21/20 16:23 Chloride 105 mmol/L (98-107) 01/21/20 16:23 Carbon Dioxide 28.0 mmol/L (21.0-32.0) 01/21/20 16:23 Anion Gap 5 (5-15) 01/21/20 16:23 BUN 20 mg/dL (7-18) H 01/21/20 16:23 Creatinine 0.56 mg/dL (0.55-1.02) 01/21/20 16:23 Est GFR (MDRD) Af Amer 133 mL/min (>60) 01/21/20 16:23 Est GFR (MDRD) Non-Af 110 mL/min (>60) 01/21/20 16:23 BUN/Creatinine Ratio 35.5 RATIO (10-20) H 01/21/20 16:23 Glucose 105 mg/dL (74-106) 01/21/20 16:23 Assessment/Plan: 1. Pain: Tylenol 1000mg PO TID. Please continue to monitor for S/S increased or decreased pain. 2. Parkinson's Disease: Sinemet CR 50/200mg 1 tab PO ACHS, Neupro 8mg patch TD Daily. Please continue to monitor for improvement in condition. Please be sure to separate by at least 2 hours Ferrex administration. 3. Insomnia: Ambien 5mg PO QHS PRN. Please continue to monitor PRN usage. 4. DVT Prophylaxis: Eliquis 2.5mg PO BID thru 02/07/20. Please continue to monitor for S/S bleeding/bruising, renal function. Psychotropic Medications: *5. 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 Please consider changing to a different agent, as atypical antipsychotics are not recommended in patients with dementia, thank you. Unnecessary Medications: *6. Ferrex 150mg PO Daily. No indicated noted in admission orders, please evaluate use. If patient is to continue, please consider retiming medication to separate iron product from Sinemet by at least 2 hours. Bowel Regimen: Miralax 17g PO daily, Senna/Docusate 2 tab PO BID, Dulcolax 10mg CA Daily PRN. Please continue to monitor for increased/decreased constipation and/or diarrhea. Date of Note:: 01/22/20 - Provider Comments Provider responsibility: Provider responsible to enter orders to implement recommendations <Preet Fletcher Chi - Last Filed: 01/22/20 12:52> Progress Note - Pharmacy Subjective: [] Objective: Allergies cyclobenzaprine [From Flexeril] Allergy (Verified 01/16/20 14:21) NEEDS FOLLOW-UP oxycodone Allergy (Verified 01/16/20 14:21) NEEDS FOLLOW-UP propoxyphene [From Darvon] Allergy (Verified 01/16/20 14:21) NEEDS FOLLOW-UP Current Medications Generic Name Dose Route Start Last Admin Trade Name Freq PRN Reason Stop Dose Admin Acetaminophen 1,000 mg 01/20/20 14:00 01/22/20 06:57 Tylenol PO 1,000 mg TID RAKAN Administration Apixaban 2.5 mg 01/19/20 20:00 01/22/20 08:51 Eliquis PO 02/07/20 23:59 2.5 mg 0800,2000 RAKAN Administration Bisacodyl 10 mg 01/20/20 12:16 Dulcolax RECTAL DAILY PRN Constipation Carbidopa/Levodopa 1 tablet 01/19/20 22:00 01/22/20 11:31 Sinemet Cr PO 1 tablet ACHS RAKAN Administration Nutritional Formula (Lactose Free) 120 ml 01/20/20 06:00 01/22/20 11:33 Ensure Enlive PO Not Given 4X/DAY RAKAN Polyethylene Glycol 17 gm 01/21/20 06:00 01/22/20 06:57 Miralax PO 17 gm DAILY RAKAN Administration Polysaccharide Iron Complex 150 mg 01/21/20 08:00 01/22/20 08:52 Ferrex 150 PO 150 mg DAILYCM RAKAN Administration Quetiapine Fumarate 25 mg 01/19/20 22:00 01/21/20 22:05 Seroquel PO 25 mg QHS RAKAN Administration Rotigotine 8 mg 01/21/20 06:00 01/22/20 06:58 Neupro TD 8 mg DAILY RAKAN Administration Senna/Docusate Sodium 2 tablet 01/20/20 18:00 01/22/20 08:32 Senokot-S, Shannan-Colace PO Not Given BID RAKAN Tuberculin PPD 5 tu 01/27/20 10:00 Tubersol, Aplisol, Ppd ID 01/27/20 10:01 X1 ONE Zolpidem Tartrate 5 mg 01/19/20 16:58 Ambien (Generic) PO QHS PRN PRN INSOMNIA Problem List Fall (Acute) Hyperlipidemia (Chronic) Coronary artery disease (Chronic) Hypertension (Chronic) Vitamin D deficiency (Chronic) Vital Signs Temp Pulse Resp BP Pulse Ox 98.3 F 67 18 147/53 H 96 01/22/20 05:00 01/22/20 05:00 01/22/20 05:00 01/22/20 05:00 01/22/20 05:00 Oxygen Delivery Method Room Air Weight: 54.4 kg Body Mass Index (BMI) 20.5 Sodium 138 mmol/L (136-145) 01/21/20 16:23 Potassium 4.1 mmol/L (3.5-5.1) 01/21/20 16:23 Chloride 105 mmol/L (98-107) 01/21/20 16:23 Carbon Dioxide 28.0 mmol/L (21.0-32.0) 01/21/20 16:23 Anion Gap 5 (5-15) 01/21/20 16:23 BUN 20 mg/dL (7-18) H 01/21/20 16:23 Creatinine 0.56 mg/dL (0.55-1.02) 01/21/20 16:23 Est GFR (MDRD) Af Amer 133 mL/min (>60) 01/21/20 16:23 Est GFR (MDRD) Non-Af 110 mL/min (>60) 01/21/20 16:23 BUN/Creatinine Ratio 35.5 RATIO (10-20) H 01/21/20 16:23 Glucose 105 mg/dL (74-106) 01/21/20 16:23 Assessment/Plan: Psychotropic Medications: Unnecessary Medications: Bowel Regimen: - Provider Comments Provider responsibility: Provider responsible to enter orders to implement recommendations Provider Comments to Recommendations by Pharmacy: Agree
[2020-01-22 13:34] VITALS: BP 121/58; PULSE 73; RESP 16; TEMP 36.6; O2SAT 98
--- NOTE | 2020-01-22 17:27 | CASEMGMT ---
Social Work Spoke with pt's son whom provided SW with background of pt hx, medically, socially, cognitively. the goal is for pt to return to [facility]. Explained Medicare insurance and secondary. Son understood. Will continue to follow. Lissett Stanley, VP PACKAGING DENTAL SCHEDULER
[2020-01-22] MEDS: QUEtiapine 25 MG Tablet PO (21:39)
[2020-01-22 21:40] VITALS: PULSE 88; RESP 16; O2SAT 94
[2020-01-22] MEDS: Bisacodyl 10 MG Suppository RECTAL (21:44)
[2020-01-23] MEDS: Acetaminophen 500 MG Tablet 1000 MG PO ×3 (05:03→21:40)
[2020-01-23] MEDS: ROTIGOTINE 4 MG 8 MG TD (05:04)
[2020-01-23] MEDS: Polyethylene Glycol 3350 17 GM PACKET PO (05:04)
[2020-01-23 05:13] VITALS: BP 100/60; PULSE 69; RESP 16; TEMP 36; O2SAT 99
--- NOTE | 2020-01-23 05:14 | NURSING ---
Attempted to give patient medications. Patient spit out Senna x2. Removed old patches. New ones placed on Right shoulder. Patient last BM was on 01/17/20. PRN Suppository given last night. Patient had hard medium. RN aware. Will update Dr. Fletcher.
[2020-01-23] MEDS: CARBIDOPA/LEVODOPA CR 50/200 Tablet PO ×3 (10:58→21:40)
[2020-01-23 13:04] LABS: Bacteria 0 SEEN /hpf (None Seen); Mucous, Urine 0 SEEN /hpf (<or=2+); Red Blood Cells-Urine 0 SEEN /hpf (0-5); Squamous Epithelial Cells - UA 0 SEEN /hpf (5-10); White Blood Cells 0 SEEN /hpf (0-5)
--- NOTE | 2020-01-23 13:04 | NURSING ---
THIS NURSE STATED TO PT THAT THE WANTED A SSE DONE DO TO THE KUB RESULTS. PT YELLED AT THIS NURSE AND STATED I DO NOT WANT ANY THING LIKE THAT. EXPLAINED TO PT WHY IT NEEDED DONE AND THAT WE COULD TRY A LIQUID DRINK IN STEAD. PT STATED NO! I HAVE PEED AND HAD BM SENSE I BEEN HERE AND [facility]. YOU PEOPLE ARE DOING THINGS TO ME I DONT LIKE,YOU TELL THAT DOCTOR HE IS NOT DOING THAT TO ME! REPORTED TO RN.
[2020-01-23 13:09] LABS: Color, Urine Yellow (Yellow); Glucose, Dipstick Normal (Normal); Ketone-Dipstick 5 mg/dl (Negative); Leukocyte Esterase-Dipstick 25 /ul (Negative); Nitrite-Dipstick Negative (Negative); Occult Blood-Urine Negative /ul (Negative); Protein-Dipstick 15 mg/dl (Negative); Urine Bilirubin Dipstick Negative (Negative); Urine Clarity Clear (Clear); Urine Urobilinogen 1 mg/dl (Normal)
[2020-01-23 13:30] VITALS: PULSE 94; RESP 18; O2SAT 75
[2020-01-23] MEDS: Senna/Docusate Sodium 1 Tablet 2 TABLET PO (13:34)
[2020-01-23 13:54] VITALS: BP 107/47; PULSE 86; RESP 17; TEMP 36.2; O2SAT 91
--- NOTE | 2020-01-23 15:47 | NURSING ---
Addendum entered by Solitario Chaparro 01/24/20 07:04: patches to right shoulder Original Note: NEUPRO PATCHES VERIFIED TO LEFT SHOULDER
--- NOTE | 2020-01-23 15:49 | PT ---
Spoke with nurse from [facility] about pt' prior level of function. Per [facility] nurse, pt needed assistance with dressing and showers. She occassionally used a w/c to assist with getting to the dining room due to fatigue with ambulation. Pt could toilet herself without assistance. Pt would also ambulate in hallways with FWW but did have a significant lean to one side when walking. Pt did c/o pain daily in various parts of her body, but pain was not consistent.
[2020-01-23] MEDS: Menthol/Lanolin/Calamine/Znox 113 GM Tube 1 APPLIC TOPICAL (17:27)
[2020-01-23] MEDS: QUEtiapine 25 MG Tablet PO (21:40)
[2020-01-23] MEDS: APIXABAN 2.5 MG TABLET PO (21:40)
--- NOTE | 2020-01-24 02:32 | NURSING ---
Attempted to administer soap suds enema. Patient continues to refuse. Will update Dr. Fletcher.
[2020-01-24] MEDS: Senna/Docusate Sodium 1 Tablet 2 TABLET PO ×2 (07:20→17:03)
[2020-01-24] MEDS: APIXABAN 2.5 MG TABLET PO ×2 (07:20→22:34)
[2020-01-24] MEDS: Acetaminophen 500 MG Tablet 1000 MG PO ×3 (07:20→22:34)
[2020-01-24] MEDS: CARBIDOPA/LEVODOPA CR 50/200 Tablet PO ×4 (07:20→22:35)
[2020-01-24] MEDS: Iron Polysaccharide Complex 150 MG CAPSULE PO (07:20)
[2020-01-24] MEDS: ROTIGOTINE 4 MG 8 MG TD (07:21)
[2020-01-24] MEDS: Menthol/Lanolin/Calamine/Znox 113 GM Tube 1 APPLIC TOPICAL ×2 (07:21→22:44)
[2020-01-24] MEDS: traMADol 50 MG Tablet PO (09:37)
--- NOTE | 2020-01-24 10:59 | NURSING ---
PT COMPLAINED OF PAIN IN LEFT HIP/HEEL AND BOTTOM. READJUSTED PT AND PRN PAIN MED GIVEN.
[2020-01-24 13:46] VITALS: BP 101/49; PULSE 70; RESP 16; TEMP 36.1; O2SAT 96
--- NOTE | 2020-01-24 13:56 | NURSING ---
no new up dates.
--- NOTE | 2020-01-24 18:02 | CASEMGMT ---
Social Work IDT met with patient, son and dtr via conference call for care plan meeting. Discussed patient's progress in therapy. Pt has progressed from dependent x2 to Brittany x2 fo transfers with FWW, mod x2 for bed mobility, allowing extra time to complete all mobility, and able to take steps with transfers. Pt is total assist with all ADLS. St working on voice strategies, as pt's cognition is baseline. Pt is out of room isolation 02/01. Explained Medicare benefit. Explained [facility] is unable to accept pt back if is x2 assist and encouraged son to begin thinking of alternative DC plan if needed. Son agreeable to SNF list. Emailed SNF list. Son understands it is private pay. The goal is for pt to remain and return to [facility]F to return to [place]. Will continue to follow. DEBORAH Cote PHOTOGRAPHY MANAGER
[2020-01-24] MEDS: QUEtiapine 25 MG Tablet PO (22:34)
[2020-01-24 22:35] VITALS: PULSE 95; RESP 16; O2SAT 97
[2020-01-25 05:00] VITALS: BP 133/58; PULSE 57; RESP 16; TEMP 36.8; O2SAT 95
[2020-01-25] MEDS: CARBIDOPA/LEVODOPA CR 50/200 Tablet PO ×3 (06:37→21:08)
[2020-01-25] MEDS: Acetaminophen 500 MG Tablet 1000 MG PO ×3 (06:37→21:07)
[2020-01-25] MEDS: ROTIGOTINE 4 MG 8 MG TD (06:38)
[2020-01-25] MEDS: Senna/Docusate Sodium 1 Tablet 2 TABLET PO (06:39)
[2020-01-25] MEDS: Polyethylene Glycol 3350 17 GM PACKET PO (06:40)
[2020-01-25] MEDS: Menthol/Lanolin/Calamine/Znox 113 GM Tube 1 APPLIC TOPICAL (06:41)
[2020-01-25] MEDS: Iron Polysaccharide Complex 150 MG CAPSULE PO (07:48)
[2020-01-25] MEDS: APIXABAN 2.5 MG TABLET PO ×2 (07:49→21:08)
[2020-01-25 13:22] VITALS: BP 116/45; PULSE 57; RESP 14; TEMP 36.9; O2SAT 94
[2020-01-25] MEDS: QUEtiapine 25 MG Tablet PO (21:07)
[2020-01-26 05:00] VITALS: BP 150/70; PULSE 63; RESP 16; TEMP 36.8; O2SAT 94
[2020-01-26] MEDS: Acetaminophen 500 MG Tablet 1000 MG PO ×3 (07:04→20:33)
[2020-01-26] MEDS: Menthol/Lanolin/Calamine/Znox 113 GM Tube 1 APPLIC TOPICAL ×2 (07:04→18:24)
[2020-01-26] MEDS: CARBIDOPA/LEVODOPA CR 50/200 Tablet PO ×4 (07:04→20:32)
[2020-01-26] MEDS: ROTIGOTINE 4 MG 8 MG TD (07:05)
[2020-01-26] MEDS: Senna/Docusate Sodium 1 Tablet 2 TABLET PO (07:05)
[2020-01-26] MEDS: Polyethylene Glycol 3350 17 GM PACKET PO (07:06)
[2020-01-26] MEDS: APIXABAN 2.5 MG TABLET PO ×2 (08:39→20:33)
[2020-01-26] MEDS: Iron Polysaccharide Complex 150 MG CAPSULE PO (08:39)
--- NOTE | 2020-01-26 10:48 | NURSING ---
Addendum entered by Liat Franco 01/26/20 10:52: This nurse also helped pt call Moy Porter as additional person to help console Original Note: GREASE BUFFER told this nurse pt was having pain. This nurse went to assess patient and ask her if she was having pain. Pt stated Yes, I hurt all over. This nurse told pt she could get her something to help her pain and patient became angry and stated Do not give me a pain pill i'm not stupid like you guys think I am and if you make me take a pain pill I will tell everyone and I am leaving here to go home. This nurse explained to pt that she did not need to take anything for pain if she did not want to and provided 1:1. This nurse also helped pt call
[2020-01-26 14:01] VITALS: BP 146/95; PULSE 52; RESP 16; TEMP 36.9; O2SAT 91
--- NOTE | 2020-01-26 15:28 | NURSING ---
message left with Dr Weir office regarding showering privilieges, awaiting return call
[2020-01-26] MEDS: QUEtiapine 25 MG Tablet PO (20:33)
[2020-01-27] MEDS: Menthol/Lanolin/Calamine/Znox 113 GM Tube 1 APPLIC TOPICAL ×2 (07:16→17:06)
[2020-01-27] MEDS: ROTIGOTINE 4 MG 8 MG TD (07:17)
[2020-01-27] MEDS: APIXABAN 2.5 MG TABLET PO ×2 (07:17→20:42)
[2020-01-27] MEDS: CARBIDOPA/LEVODOPA CR 50/200 Tablet PO ×4 (07:17→20:44)
[2020-01-27] MEDS: Acetaminophen 500 MG Tablet 1000 MG PO ×3 (07:17→20:44)
[2020-01-27] MEDS: Polyethylene Glycol 3350 17 GM PACKET PO (07:19)
[2020-01-27 08:00] LABS: Absolute Lymphocyte Count 1.08 X10^3/uL (0.83-4.51); Absolute Neutrophil Count 3.4 X10^3/uL (2.0-7.7); Basophil# 0.03 X10^3/uL; Basophil% 0.6 % (0-1); Eosinophil# 0.32 X10^3/uL; Eosinophils% 5.9 % (0-5); Hematocrit 35.9 % (37-47); Hemoglobin 11.4 g/dL (12.0-15.0); Lymphocyte # 1.08 X10^3/ul (4.0); Lymphocyte % 20.1 % (19-41); Mean Corp Hgb Conc 31.8 g/dL (32-36); Mean Corpuscular Volume 104.1 fL (81-99); Mean Platelet Vol. 8.6 fl (6.2-12.0); Monocyte# 0.57 X10^3/uL; Monocyte% 10.6 % (0-10); NRBC Flagged by Analyzer 0 % (0-5); Neutrophil # 3.36 X10^3/uL (2.7-7.7); Neutrophil % 62.4 % (47-70); Platelet Count 532 K/mm3 (150-450); RBC Distribution Width CV 12.2 % (11.6-14.6); RBC Distribution Width SD 46.5 fl (35.1-43.9); Red Blood Count 3.45 M/mm3 (4.2-5.4); White Blood Count 5.4 K/mm3 (4.4-11.0)
[2020-01-27 08:17] LABS: Anion Gap 6 (5-15); BUN 19 mg/dL (7-18); BUN/Creat Ratio 32.9 RATIO (10-20); Calcium,Total 8.7 mg/dL (8.5-10.1); Chloride 103 mmol/L (98-107); Creatinine, Serum 0.58 mg/dL (0.55-1.02); EST Glomerular Filtration Rate 107 mL/min (>60); Est Glom Filt Rate - Afr Amer 129 mL/min (>60); Estimated Creatinine Clearance 38.53 ml/min; Glucose 79 mg/dL (74-106); Potassium 3.8 mmol/L (3.5-5.1); Sodium Level 135 mmol/L (136-145)
[2020-01-27] MEDS: Iron Polysaccharide Complex 150 MG CAPSULE PO (08:58)
[2020-01-27 10:00] VITALS: RESP 16
[2020-01-27] MEDS: Tuberculin,Purif.prot.deriv. 50 TU/ML Vial 5 ML ID (11:16)
--- NOTE | 2020-01-27 13:42 | NURSING ---
Pt's hip check for signs/symptoms of infection per physicians request. [place] remain well approximated denies pain, no active drainage noted, no odor or warmth, pink noted around sri. RN aware
[2020-01-27 13:53] LABS: Ferritin 199 ng/mL (8-252); Iron 45 ug/dL (50-170); Iron Binding Capacity,Total 263 ug/dL (250-450)
[2020-01-27 14:06] VITALS: BP 111/60; PULSE 77; RESP 14; TEMP 36.1; O2SAT 98
[2020-01-27] MEDS: Senna/Docusate Sodium 1 Tablet 2 TABLET PO (17:05)
[2020-01-27] MEDS: QUEtiapine 25 MG Tablet PO (20:43)
[2020-01-28] MEDS: Polyethylene Glycol 3350 17 GM PACKET PO (03:58)
[2020-01-28] MEDS: Menthol/Lanolin/Calamine/Znox 113 GM Tube 1 APPLIC TOPICAL ×2 (04:00→17:11)
[2020-01-28] MEDS: Senna/Docusate Sodium 1 Tablet 2 TABLET PO ×2 (04:00→17:10)
[2020-01-28] MEDS: CARBIDOPA/LEVODOPA CR 50/200 Tablet PO ×4 (04:00→20:41)
[2020-01-28] MEDS: Acetaminophen 500 MG Tablet 1000 MG PO ×3 (04:00→20:41)
[2020-01-28] MEDS: ROTIGOTINE 4 MG 8 MG TD (04:00)
[2020-01-28 04:15] VITALS: BP 144/62; PULSE 67; RESP 18; TEMP 36.7; O2SAT 97
[2020-01-28 06:05] LABS: Absolute Lymphocyte Count 1.05 X10^3/uL (0.83-4.51); Absolute Neutrophil Count 3.9 X10^3/uL (2.0-7.7); Basophil# 0.03 X10^3/uL; Basophil% 0.5 % (0-1); Eosinophil# 0.37 X10^3/uL; Eosinophils% 6.2 % (0-5); Hematocrit 34.4 % (37-47); Hemoglobin 10.9 g/dL (12.0-15.0); Lymphocyte # 1.05 X10^3/ul (4.0); Lymphocyte % 17.7 % (19-41); Mean Corp Hgb Conc 31.7 g/dL (32-36); Mean Corpuscular Hgb 33.3 pg (27.0-32.0); Mean Corpuscular Volume 105.2 fL (81-99); Mean Platelet Vol. 8.3 fl (6.2-12.0); Monocyte# 0.58 X10^3/uL; Monocyte% 9.8 % (0-10); NRBC Flagged by Analyzer 0 % (0-5); Neutrophil # 3.87 X10^3/uL (2.7-7.7); Neutrophil % 65.1 % (47-70); Platelet Count 543 K/mm3 (150-450); RBC Distribution Width CV 12.2 % (11.6-14.6); RBC Distribution Width SD 47.3 fl (35.1-43.9); Red Blood Count 3.27 M/mm3 (4.2-5.4); White Blood Count 5.9 K/mm3 (4.4-11.0)
[2020-01-28] MEDS: APIXABAN 2.5 MG TABLET PO (07:33)
[2020-01-28] MEDS: Iron Polysaccharide Complex 150 MG CAPSULE PO (07:33)
--- NOTE | 2020-01-28 14:13 | NURSING ---
dr pettit aware of elevated PLTs & lower HGB. Chyna lynch and recheck lab on 01/29
[2020-01-28 14:14] VITALS: BP 142/81; PULSE 68; RESP 14; TEMP 37; O2SAT 95
[2020-01-28] MEDS: QUEtiapine 25 MG Tablet PO (20:42)
[2020-01-29 06:11] VITALS: BP 112/56; PULSE 67; RESP 18; TEMP 37; O2SAT 99
[2020-01-29] MEDS: ROTIGOTINE 4 MG 8 MG TD (06:15)
[2020-01-29] MEDS: CARBIDOPA/LEVODOPA CR 50/200 Tablet PO ×3 (06:16→16:17)
[2020-01-29] MEDS: Acetaminophen 500 MG Tablet 1000 MG PO ×2 (06:16→13:39)
[2020-01-29] MEDS: Menthol/Lanolin/Calamine/Znox 113 GM Tube 1 APPLIC TOPICAL ×2 (06:18→17:59)
[2020-01-29] MEDS: Iron Polysaccharide Complex 150 MG CAPSULE PO (08:05)
[2020-01-29 10:00] VITALS: PULSE 68; RESP 16; O2SAT 98
--- NOTE | 2020-01-29 13:04 | NURSING ---
Shingle Carrier Note: Res resting in chair with lunch tray. Resident slouched to left side. Assisted resident to better seating position and offered to assist with lunch. Res had not eaten any of her meal. Stated that she had tried bites of food, but was not appealing. No bites of food observed to have been taken. Offered different meal and resident chose peanut butter and jelly sandwich. Ordered from dietary and delivered. Set resident up with sandwich and resident made no attempts to eat. Cut sandwich into smaller bites, handed the sandwich to her and gave verbal cues to eat. Res requiring verbal and physical cues to feed self.
[2020-01-29 13:44] VITALS: BP 121/47; PULSE 68; RESP 16; TEMP 36.6; O2SAT 98
--- NOTE | 2020-01-29 14:13 | NURSING ---
Per Dr. Weir, pt is allowed to shower.
[2020-01-29] MEDS: Senna/Docusate Sodium 1 Tablet 2 TABLET PO (18:00)
--- NOTE | 2020-01-29 21:12 | NURSING ---
Addendum entered by Dana Moss 01/30/20 04:49: 0400-Patient resting in recliner with eyes closed at this time. Respirations even and unlabored. Addendum entered by Dana Moss 01/30/20 03:24: 0310-Patient screaming and howling again. IM given in right quad. Patient continues to scream out. Addendum entered by Dana Moss 01/30/20 03:23: 0135-Patient screaming and howling at this time. Several patients complaining. Dr. Fletcher able to hear patient. Gave RN Ativan order. Addendum entered by Dana Moss 01/30/20 01:24: Patient requested to take HS medications at this time. Medications given . Addendum entered by Dana Moss 01/29/20 22:32: Continued to administer patient HS medications. Patient continued to refuse. Patient stated, I'm asleep, just leave. Original Note: Attempted to administer HS medications. Patient states I'm asleep, I cannot swallow it now, I'm asleep. Will attempt again at a later time.
[2020-01-30] MEDS: QUEtiapine 25 MG Tablet PO ×2 (01:23→21:36)
[2020-01-30] MEDS: CARBIDOPA/LEVODOPA CR 50/200 Tablet PO ×5 (01:23→21:36)
[2020-01-30] MEDS: Acetaminophen 500 MG Tablet 1000 MG PO ×4 (01:23→21:36)
[2020-01-30] MEDS: LORazepam 2 MG/ML Syringe 1 MG IM (03:21)
[2020-01-30 06:37] LABS: Absolute Lymphocyte Count 1.14 X10^3/uL (0.83-4.51); Basophil# 0.04 X10^3/uL; Basophil% 0.8 % (0-1); Eosinophil# 0.39 X10^3/uL; Eosinophils% 7.8 % (0-5); Hematocrit 33.5 % (37-47); Hemoglobin 10.6 g/dL (12.0-15.0); Lymphocyte # 1.14 X10^3/ul (4.0); Lymphocyte % 22.7 % (19-41); Mean Corp Hgb Conc 31.6 g/dL (32-36); Mean Corpuscular Hgb 32.9 pg (27.0-32.0); Mean Platelet Vol. 8.2 fl (6.2-12.0); Monocyte# 0.39 X10^3/uL; Monocyte% 7.8 % (0-10); NRBC Flagged by Analyzer 0 % (0-5); Neutrophil # 3.03 X10^3/uL (2.7-7.7); Neutrophil % 60.3 % (47-70); Platelet Count 545 K/mm3 (150-450); RBC Distribution Width CV 12.2 % (11.6-14.6); RBC Distribution Width SD 46.3 fl (35.1-43.9); Red Blood Count 3.22 M/mm3 (4.2-5.4)
[2020-01-30] MEDS: ROTIGOTINE 4 MG 8 MG TD (06:41)
[2020-01-30] MEDS: Menthol/Lanolin/Calamine/Znox 113 GM Tube 1 APPLIC TOPICAL ×2 (06:42→16:43)
[2020-01-30 06:46] VITALS: BP 140/62; PULSE 78; RESP 16; TEMP 36.6; O2SAT 95
--- NOTE | 2020-01-30 06:52 | MDS.RN ---
Information for the mds was obtained from review of the clinical record, interview of resident, staff, and direct observation of resident's care.
[2020-01-30] MEDS: Iron Polysaccharide Complex 150 MG CAPSULE PO (08:02)
--- NOTE | 2020-01-30 11:24 | NURSING ---
NEUPRO PATCHES VERIFIED TO PT RIGHT AND LEFT SHOULDERS.
[2020-01-30 13:34] VITALS: BP 91/59; PULSE 82; RESP 14; TEMP 36.2; O2SAT 98
[2020-01-30] MEDS: Senna/Docusate Sodium 1 Tablet 2 TABLET PO (16:44)
[2020-01-31 05:00] VITALS: BP 130/65; PULSE 60; RESP 18; TEMP 36.8; O2SAT 98
[2020-01-31] MEDS: ROTIGOTINE 4 MG 8 MG TD (06:53)
[2020-01-31] MEDS: Menthol/Lanolin/Calamine/Znox 113 GM Tube 1 APPLIC TOPICAL ×2 (06:53→17:25)
[2020-01-31] MEDS: CARBIDOPA/LEVODOPA CR 50/200 Tablet PO ×4 (06:53→20:03)
[2020-01-31] MEDS: Acetaminophen 500 MG Tablet 1000 MG PO ×3 (06:53→20:02)
[2020-01-31] MEDS: Iron Polysaccharide Complex 150 MG CAPSULE PO (08:52)
[2020-01-31 10:00] VITALS: PULSE 73; RESP 18; O2SAT 95
[2020-01-31 13:28] VITALS: BP 133/54; PULSE 70; RESP 16; TEMP 35.9; O2SAT 97
--- NOTE | 2020-01-31 14:47 | NURSING ---
22 sri removed today per order, 5 steri strips applied to proximal hip
[2020-01-31] MEDS: QUEtiapine 25 MG Tablet PO (20:03)
[2020-02-01 05:00] VITALS: BP 139/75; PULSE 64; RESP 16; TEMP 36.8; O2SAT 96
[2020-02-01] MEDS: ROTIGOTINE 4 MG 8 MG TD (06:40)
[2020-02-01] MEDS: CARBIDOPA/LEVODOPA CR 50/200 Tablet PO ×4 (06:44→19:56)
[2020-02-01] MEDS: Acetaminophen 500 MG Tablet 1000 MG PO ×3 (06:44→19:56)
[2020-02-01] MEDS: Polyethylene Glycol 3350 17 GM PACKET PO (06:44)
[2020-02-01] MEDS: Senna/Docusate Sodium 1 Tablet 2 TABLET PO ×2 (06:46→16:41)
[2020-02-01] MEDS: Menthol/Lanolin/Calamine/Znox 113 GM Tube 1 APPLIC TOPICAL ×2 (06:47→16:41)
[2020-02-01] MEDS: Iron Polysaccharide Complex 150 MG CAPSULE PO (07:51)
--- NOTE | 2020-02-01 13:13 | NURSING ---
no new updates.
[2020-02-01 13:20] VITALS: BP 105/53; PULSE 72; RESP 14; TEMP 36.7; O2SAT 98
--- NOTE | 2020-02-01 13:55 | CASEMGMT ---
Social Work Pt requesting to [facility] back to [facility] F[facility]ed updated clinicals to [facility]. Left message with son to discuss DC plans. Will continue to follow. Lissett Stanley MSW TELEGRAPHER AGENT
[2020-02-01] MEDS: QUEtiapine 25 MG Tablet PO (19:55)
[2020-02-01 20:05] VITALS: PULSE 78; RESP 16; O2SAT 97
[2020-02-02 04:17] VITALS: BP 123/76; PULSE 78; RESP 16; TEMP 36.8; O2SAT 99
[2020-02-02] MEDS: Acetaminophen 500 MG Tablet 1000 MG PO ×3 (04:23→21:11)
[2020-02-02] MEDS: Polyethylene Glycol 3350 17 GM PACKET PO (04:23)
[2020-02-02] MEDS: CARBIDOPA/LEVODOPA CR 50/200 Tablet PO ×4 (04:24→21:11)
[2020-02-02] MEDS: Menthol/Lanolin/Calamine/Znox 113 GM Tube 1 APPLIC TOPICAL (04:25)
[2020-02-02] MEDS: ROTIGOTINE 4 MG 8 MG TD (04:25)
[2020-02-02] MEDS: Senna/Docusate Sodium 1 Tablet 2 TABLET PO (04:26)
[2020-02-02 05:47] LABS: Absolute Lymphocyte Count 1.23 X10^3/uL (0.83-4.51); Absolute Neutrophil Count 4.1 X10^3/uL (2.0-7.7); Basophil# 0.04 X10^3/uL; Basophil% 0.6 % (0-1); Eosinophil# 0.37 X10^3/uL; Eosinophils% 5.9 % (0-5); Hematocrit 32.6 % (37-47); Hemoglobin 10.2 g/dL (12.0-15.0); Lymphocyte # 1.23 X10^3/ul (4.0); Lymphocyte % 19.5 % (19-41); Mean Corp Hgb Conc 31.3 g/dL (32-36); Mean Corpuscular Hgb 32.8 pg (27.0-32.0); Mean Corpuscular Volume 104.8 fL (81-99); Mean Platelet Vol. 8.3 fl (6.2-12.0); Monocyte# 0.55 X10^3/uL; Monocyte% 8.7 % (0-10); NRBC Flagged by Analyzer 0 % (0-5); Neutrophil % 64.8 % (47-70); Platelet Count 474 K/mm3 (150-450); RBC Distribution Width CV 12.5 % (11.6-14.6); RBC Distribution Width SD 47.9 fl (35.1-43.9); Red Blood Count 3.11 M/mm3 (4.2-5.4); White Blood Count 6.3 K/mm3 (4.4-11.0)
[2020-02-02] MEDS: Iron Polysaccharide Complex 150 MG CAPSULE PO (07:59)
--- NOTE | 2020-02-02 10:51 | CASEMGMT ---
Social Work Son returned phone call. Discussed DC plans. Son agreeable to DC 02/06 to return to [facility]. Notified pt. Referral made to [facility] PT/OT/ST. No DME needs. Plan: DC to [facility] 02/06 with [facility] PT/OT/ST. No DME Lissett Stanley, MAJOR ACCOUNT MANAGER SUPERVISOR TELLERS
--- NOTE | 2020-02-02 14:03 | PCM.DC ---
- Discharge Diagnoses Current Active Problems: Current Active and Chronic Problems (This Medical Record has been edited. Action required.) Fall (Acute) Hyperlipidemia (Chronic) Coronary artery disease (Chronic) Hypertension (Chronic) Vitamin D deficiency (Chronic) You will use the following diet at home:: No restrictions, Regular Your food should be the consistency of: Regular Your liquids should be the consistency of: Regular/Thin Discharge Activity: Return to Normal Activity, May Shower, Use Walker Weight Bearing Status: Weight bearing as tolerated Call your doctor if you observe: Fever of 101 or Higher, Inability to urinate, Inability to have a bowel movement, Shortness of breath, Chest pain, Uncontrolled pain Allergies/Adverse Reactions: Allergies cyclobenzaprine [From Flexeril] Allergy (Verified 01/24/20 15:01) NEEDS FOLLOW-UP oxycodone Allergy (Verified 01/24/20 15:01) NEEDS FOLLOW-UP propoxyphene [From Darvon] Allergy (Verified 01/24/20 15:01) NEEDS FOLLOW-UP tramadol Adverse Reaction (Verified 01/27/20 01:39) NEEDS FOLLOW-UP Confusion per patient Medications to take at Discharge Carbidopa/Levodopa [Carbidopa-Levo ER 25-100 Tab] 2 ea PO 4X/DAY 11/07/18 Cholecalciferol (VIT D3) [Vitamin D3] 1,000 unit PO DAILY 11/07/18 Multivitamin [Tab-A-Eda] 1 ea PO DAILY 11/07/18 [place]-3 Fatty Acids [[place]-3] 2,000 mg PO DAILY 11/07/18 Quetiapine Fumarate [Seroquel] 25 mg PO DAILY PRN 11/07/18 Rotigotine [Neupro] 8 mg TD DAILY 11/07/18 Carbidopa/Levodopa [Carbidopa-Levo ER 50-200 Tab] 1 tab PO 4X/DAY 01/16/20 Quetiapine Fumarate [Seroquel] 25 mg PO QHS 01/16/20 Rotigotine [Neupro] 8 mg TD DAILY 01/16/20 Acetaminophen [Tylenol] 1,000 mg PO TID tab 02/02/20 Iron Polysaccharide Complex [Ferrex 150] 150 mg PO DAILYCM #30 cap 02/02/20 Menthol/Lanolin/Calamine/Znox [Calmoseptine Ointment] 1 applic TOPICAL BID tube 02/02/20 Rotigotine [Neupro] 8 mg TD DAILY patch.td24 02/02/20 Zolpidem Tartrate [Ambien] 5 mg PO QHS PRN PRN tab 02/02/20 The following prescriptions were given: Iron Polysaccharide Complex [Ferrex 150] 150 mg PO DAILYCM #30 cap Prescription Printed Primary Care Physician: Tiburcio Rogers MD [Primary Care Provider] - Please follow up with your Primary Care Physician in: 1 week. Test Results: Test results from this visit will be discussed in further detail at your follow-up appointment, if applicable. Please Follow Up With: Dr. Weir When: After discharge Proposed Discharge Date: 02/07/20
--- NOTE | 2020-02-02 14:05 | DS.PCM_ITS ---
Discharge Date and Diagnosis - Problem List Patient Problems: Active and Suspected Problems (This Medical Record has been edited. Action required.) Fall (Acute) Date of Admission: 01/16/20 Date of Discharge: 02/07/20 - Primary Discharge Diagnosis Acute Problems: Active Problems (This Medical Record has been edited. Action required.) Fall (Acute) - Secondary Discharge Diagnosis Chronic Problems: Chronic Problems (This Medical Record has been edited. Action required.) Hyperlipidemia (Chronic) Coronary artery disease (Chronic) Hypertension (Chronic) Vitamin D deficiency (Chronic) Dementia (Chronic) Parkinsons disease (Chronic) Hospital Course and Treatment Imaging Results: 01/19/20 17:25 Diet: Regular - General Clinical Impression(s) from Imaging Studies Chest X-Ray 01/21/20 15:54 IMPRESSION: Normal x-ray examination of the chest. Electronically Signed: Asad Patel, at 18:36 EDT Tel , Service support , KUB X-Ray 01/21/20 15:59 IMPRESSION: Unremarkable abdomen. Electronically Signed: Asad Patel at 18:35 EDT Tel , Service support , Labs (Last 48 Hours) 02/02/20 05:05 WBC 6.3 RBC 3.11 L Hgb 10.2 L Hct 32.6 L MCV 104.8 H MCH 32.8 H MCHC 31.3 L RDW Std Deviation 47.9 H RDW Coeff of Bryanna 12.5 Plt Count 474 H MPV 8.3 Immature Gran % (Auto) 0.500 Neut % (Auto) 64.8 Lymph % (Auto) 19.5 Lane % (Auto) 8.7 Eos % (Auto) 5.9 H Baso % (Auto) 0.6 Absolute Neuts (auto) 4.1 Absolute Lymphs (auto) 1.23 Nucleated RBC % 0 Operations: total hip replacement Procedures: None Summary of Care Provided: The patient is a 79 year old Female with below past medical history hospitalized for left hip fracture, underwent left hip hemiarthroplasty 01/17/[address] Weir, admitted to TCU with debility, here for rehabilitation, strengthening, prior to discharge to [facility]. Discharge to [facility], [facility] PT/OT/ST, No durable medical equipment needs. Patient Problems: Active and Suspected Problems (This Medical Record has been edited. Action required.) Fall (Acute) - Physical Exam Vitals/I&O's: Vital Signs Temp Pulse Resp BP Pulse Ox 98.2 F 78 16 123/76 H 99 02/02/20 04:17 02/02/20 04:17 02/02/20 04:17 02/02/20 04:17 02/02/20 04:17 Oxygen Delivery Method Room Air Weight: 51.982 kg Body Mass Index (BMI) 20.5 Intake and Output for Last 24 Hours 01/31/20 02/01/20 02/02/20 23:59 23:59 23:59 Intake Total 360 / 360 600 / 600 360 / 360 Balance 360 / 360 600 / 600 360 / 360 Laboratory Results 02/02/20 05:05: WBC 6.3, RBC 3.11 L, Hgb 10.2 L, Hct 32.6 L, MCV 104.8 H, MCH 32.8 H, MCHC 31.3 L, RDW Std Deviation 47.9 H, RDW Coeff of Bryanna 12.5, Plt Count 474 H, MPV 8.3, Immature Gran % (Auto) 0.500, Neut % (Auto) 64.8, Lymph % (Auto) 19.5, Lane % (Auto) 8.7, Eos % (Auto) 5.9 H, Baso % (Auto) 0.6, Absolute Neuts (auto) 4.1, Absolute Lymphs (auto) 1.23, Nucleated RBC % 0 Current Medications Acetaminophen (Tylenol) 1,000 mg PO TID RAKAN Last Admin: 02/02/20 13:07 Dose: 1,000 mg Documented by: Bisacodyl (Dulcolax) 10 mg RECTAL DAILY PRN PRN Reason: Constipation Last Admin: 01/22/20 21:44 Dose: 10 mg Documented by: Calamine/Phenol (Menthol/Lanolin/Calamine/Znox 113 Gm Tube) 1 applic TOPICAL BID RAKAN; Protocol Last Admin: 02/02/20 04:25 Dose: 1 applicatio Documented by: Carbidopa/Levodopa (Sinemet Cr) 1 tablet PO ACHS [facility] Last Admin: 02/02/20 10:32 Dose: 1 tablet Documented by: Polyethylene Glycol (Miralax) 17 gm PO DAILY [facility] Last Admin: 02/02/20 04:23 Dose: 17 gm Documented by: Polysaccharide Iron Complex (Ferrex 150) 150 mg PO DAILYCM [facility] Last Admin: 02/02/20 07:59 Dose: 150 mg Documented by: Quetiapine Fumarate (Seroquel) 25 mg PO QHS [facility] Last Admin: 02/01/20 19:55 Dose: 25 mg Documented by: Rotigotine (Neupro) 8 mg TD DAILY [facility] Last Admin: 02/02/20 04:25 Dose: 8 mg Documented by: Senna/Docusate Sodium (Senokot-S, Shannan-Colace) 2 tablet PO BID [facility] Last Admin: 02/02/20 04:26 Dose: 2 tablet Documented by: Zolpidem Tartrate (Ambien (Generic)) 5 mg PO QHS PRN PRN PRN Reason: INSOMNIA Discharge Diet: No Restrictions Discharge Activity: Return to Normal Activity, May Shower, Use Walker Weight Bearing Status: Weight bearing as tolerated Call your doctor if you observe: Fever of 101 or Higher, Inability to urinate, Inability to have a bowel movement, Shortness of breath, Chest pain, Uncontrolled pain Home Medications: Medications to take at Discharge Carbidopa/Levodopa [Carbidopa-Levo ER 25-100 Tab] 2 ea PO 4X/DAY 11/07/18 Cholecalciferol (VIT D3) [Vitamin D3] 1,000 unit PO DAILY 11/07/18 Multivitamin [Tab-A-Eda] 1 ea PO DAILY 11/07/18 [place]-3 Fatty Acids [[place]-3] 2,000 mg PO DAILY 11/07/18 Quetiapine Fumarate [Seroquel] 25 mg PO DAILY PRN 11/07/18 Rotigotine [Neupro] 8 mg TD DAILY 11/07/18 Carbidopa/Levodopa [Carbidopa-Levo ER 50-200 Tab] 1 tab PO 4X/DAY 01/16/20 Quetiapine Fumarate [Seroquel] 25 mg PO QHS 01/16/20 Rotigotine [Neupro] 8 mg TD DAILY 01/16/20 Acetaminophen [Tylenol] 1,000 mg PO TID tab 02/02/20 Iron Polysaccharide Complex [Ferrex 150] 150 mg PO DAILYCM #30 cap 02/02/20 Menthol/Lanolin/Calamine/Znox [Calmoseptine Ointment] 1 applic TOPICAL BID tube 02/02/20 Rotigotine [Neupro] 8 mg TD DAILY patch.td24 02/02/20 Zolpidem Tartrate [Ambien] 5 mg PO QHS PRN PRN tab 02/02/20 Following Prescriptions Were Given to Patient: Iron Polysaccharide Complex [Ferrex 150] 150 mg PO DAILYCM #30 cap Prescription Printed Primary Care Physician: Tiburcio Rogers MD [Primary Care Provider] - Please follow up with your Primary Care Physician in: 1 week. Please Follow Up With: Dr. Weir When: After discharge Disposition: Asstd Living/Non-Skill NH Minutes spent on discharge:: 35 Patient Condition:: Stable Medical Necessity - Tobacco Use Smoking Status: Never smoker Tobacco Use: Non-smoker Meaningful Use Info Meaningful Use Diagnoses (Choose all that apply): None applicable
--- NOTE | 2020-02-02 14:06 | TREXTCAR_ITS ---
- Diet 01/19/20 17:25 Diet: Regular - General - Routine Orders/Code Status Suppository Type: Dulcolax 10mg Suppository Frequency: Daily [facility]N [facility]. - Wound(s) Left Knee Wound Type: Abrasion left hip Wound Type: Surgical Incision - Therapies Weight Bearing: Weight bearing as tolerated Extremity Affected:: Bilateral Lower Physical Therapy: Eval and Treat Occupational Therapy: Eval and Treat Speech Therapy: Eval and Treat - Problem/Diagnosis (1) Fall Status: Acute (2) Hyperlipidemia Status: Chronic (3) Coronary artery disease Status: Chronic (4) Hypertension Status: Chronic (5) Vitamin D deficiency Status: Chronic (6) Fracture of femoral neck, left Status: Acute (7) Debility Status: Acute (8) Dementia Status: Chronic (9) Parkinsons disease Status: Chronic - Allergies/Procedures Done in Hospital Allergies/Adverse Reactions: Allergies cyclobenzaprine [From Flexeril] Allergy (Verified 01/24/20 15:01) NEEDS FOLLOW-UP oxycodone Allergy (Verified 01/24/20 15:01) NEEDS FOLLOW-UP propoxyphene [From Darvon] Allergy (Verified 01/24/20 15:01) NEEDS FOLLOW-UP tramadol Adverse Reaction (Verified 01/27/20 01:39) NEEDS FOLLOW-UP Confusion per patient - Type of Care/Length of Stay Estimated LOS: More Than 30 Days Type of Care Needed: Intermediate Rehab Potential: Fair Prognosis: Fair - Additional Orders/Day of Discharge Day of Discharge: 02/07/20 - Dietary and Speech Recommendations Dietitian Recommendations/Changes: Continue regular diet to optimize intake at meals. Will offer ensure pudding or magic cup w/ lunch and dinner - offer CIB w/ breakfast. Speech Linguistic Eval Summary: Pt presents with mild-moderate memory deficits presenting as inconsistent episodes of confusion and likely worsening secondary to change in physical status and emotional state (pt states she is sad and depressed with current situation/health, with family members voicing concern re: psych status and stating this pt has had similar previous episodes following surgery). Pt fully oriented but later stated she was in [place] (where she lived most of her life). When unable to recall information after a delay with distraction, pt fluently made up new information even while saying she was not sure if she was correct. Pt unsure whether she wants to participate in cognitive-linguistic therapy vs. focusing soley on rehabilitating hip; however, education provided as to benefits and functional activities that can be worked on (memory strategies/internal and external aids for functional activities, such as recall as to how-to utilize FaceTime). - Follow Up Care Primary Care Physician: Tiburcio Rogers MD [Primary Care Provider] - Please follow up with your Primary Care Physician in: 1 week. Please Follow Up With: Dr. Weir When: After discharge
[2020-02-02 14:23] VITALS: BP 118/59; PULSE 66; RESP 18; TEMP 36.3; O2SAT 100
[2020-02-02] MEDS: QUEtiapine 25 MG Tablet PO (21:10)
[2020-02-03] MEDS: CARBIDOPA/LEVODOPA CR 50/200 Tablet PO ×4 (07:07→21:13)
[2020-02-03] MEDS: Polyethylene Glycol 3350 17 GM PACKET PO (07:07)
[2020-02-03] MEDS: Acetaminophen 500 MG Tablet 1000 MG PO ×3 (07:07→21:13)
[2020-02-03] MEDS: Menthol/Lanolin/Calamine/Znox 113 GM Tube 1 APPLIC TOPICAL ×2 (07:07→18:04)
[2020-02-03] MEDS: Senna/Docusate Sodium 1 Tablet 2 TABLET PO (07:11)
[2020-02-03 07:14] VITALS: BP 128/82; PULSE 71; RESP 18; TEMP 36.3; O2SAT 96
[2020-02-03 08:39] LABS: Absolute Lymphocyte Count 1.07 X10^3/uL (0.83-4.51); Absolute Neutrophil Count 3.2 X10^3/uL (2.0-7.7); Basophil# 0.05 X10^3/uL; Eosinophil# 0.34 X10^3/uL; Eosinophils% 6.6 % (0-5); Hematocrit 33.6 % (37-47); Hemoglobin 10.6 g/dL (12.0-15.0); Lymphocyte # 1.07 X10^3/ul (4.0); Lymphocyte % 20.7 % (19-41); Mean Corp Hgb Conc 31.5 g/dL (32-36); Mean Corpuscular Hgb 32.7 pg (27.0-32.0); Mean Corpuscular Volume 103.7 fL (81-99); Mean Platelet Vol. 8.3 fl (6.2-12.0); Monocyte# 0.49 X10^3/uL; Monocyte% 9.5 % (0-10); NRBC Flagged by Analyzer 0 % (0-5); Neutrophil # 3.19 X10^3/uL (2.7-7.7); Neutrophil % 61.6 % (47-70); Platelet Count 481 K/mm3 (150-450); RBC Distribution Width CV 12.7 % (11.6-14.6); RBC Distribution Width SD 48.6 fl (35.1-43.9); Red Blood Count 3.24 M/mm3 (4.2-5.4); White Blood Count 5.2 K/mm3 (4.4-11.0)
[2020-02-03] MEDS: Iron Polysaccharide Complex 150 MG CAPSULE PO (08:42)
[2020-02-03 09:07] LABS: Anion Gap 6 (5-15); BUN 17 mg/dL (7-18); BUN/Creat Ratio 29.4 RATIO (10-20); Calcium,Total 9.2 mg/dL (8.5-10.1); Chloride 107 mmol/L (98-107); Creatinine, Serum 0.58 mg/dL (0.55-1.02); EST Glomerular Filtration Rate 107 mL/min (>60); Est Glom Filt Rate - Afr Amer 129 mL/min (>60); Estimated Creatinine Clearance 36.82 ml/min; Glucose 83 mg/dL (74-106); Potassium 3.9 mmol/L (3.5-5.1); Sodium Level 138 mmol/L (136-145)
[2020-02-03] MEDS: ROTIGOTINE 4 MG 8 MG TD (09:22)
--- NOTE | 2020-02-03 09:26 | NURSING ---
Neupro 8mg patch received from pharmacy at this time. Applied to patients Left upper shoulder.
--- NOTE | 2020-02-03 11:46 | NURSING ---
Notified resident of outbreak status of COVID-19. Left message for son, German, to call.
--- NOTE | 2020-02-03 11:59 | NURSING ---
Called, son, German and informed him of COVID Outbreak status.
[2020-02-03 14:22] VITALS: BP 121/61; PULSE 82; RESP 17; TEMP 37.1; O2SAT 95
[2020-02-03] MEDS: QUEtiapine 25 MG Tablet PO (21:13)
[2020-02-03 21:15] VITALS: RESP 16; O2SAT 95
[2020-02-04 05:00] VITALS: BP 125/78; PULSE 80; RESP 16; TEMP 36.8; O2SAT 96
[2020-02-04] MEDS: Polyethylene Glycol 3350 17 GM PACKET PO (06:50)
[2020-02-04] MEDS: Menthol/Lanolin/Calamine/Znox 113 GM Tube 1 APPLIC TOPICAL ×2 (06:50→17:16)
[2020-02-04] MEDS: CARBIDOPA/LEVODOPA CR 50/200 Tablet PO ×4 (06:51→21:44)
[2020-02-04] MEDS: Acetaminophen 500 MG Tablet 1000 MG PO ×3 (06:51→21:44)
[2020-02-04] MEDS: ROTIGOTINE 4 MG 8 MG TD (06:51)
[2020-02-04] MEDS: Iron Polysaccharide Complex 150 MG CAPSULE PO (07:50)
[2020-02-04 10:00] VITALS: PULSE 74; RESP 16; O2SAT 96
[2020-02-04 13:25] VITALS: BP 133/69; PULSE 56; RESP 15; TEMP 36.4; O2SAT 100
[2020-02-04] MEDS: QUEtiapine 25 MG Tablet PO (21:44)
[2020-02-05] MEDS: Polyethylene Glycol 3350 17 GM PACKET PO (05:36)
[2020-02-05] MEDS: Senna/Docusate Sodium 1 Tablet 2 TABLET PO ×2 (05:39→16:37)
[2020-02-05] MEDS: Acetaminophen 500 MG Tablet 1000 MG PO ×3 (05:39→19:48)
[2020-02-05] MEDS: Menthol/Lanolin/Calamine/Znox 113 GM Tube 1 APPLIC TOPICAL ×2 (05:39→16:37)
[2020-02-05 05:45] VITALS: BP 144/75; PULSE 63; RESP 16; TEMP 36.4; O2SAT 95
[2020-02-05] MEDS: Iron Polysaccharide Complex 150 MG CAPSULE PO (08:01)
[2020-02-05] MEDS: CARBIDOPA/LEVODOPA CR 50/200 Tablet PO ×4 (08:01→19:48)
[2020-02-05 14:04] VITALS: BP 120/69; PULSE 68; RESP 16; TEMP 36.4; O2SAT 95
--- NOTE | 2020-02-05 14:55 | CASEMGMT ---
Social Work Spoke with [facility] to follow up on patient's DC and advise them of COVID outbreak status. [facility] unable to accept pt until 14 days after potential date of exposure and has two negative COVID tests. Pt was tested today, and given pt tests negative, the next test would be 02/11 and that would need to be negative and could DC after that. Spoke with son on information above. Son understood. Explained Medicare will continue to cover pt until DC date. Will keep son informed. Son can transport pt to [place] at the time of DC. Will continue to follow. DEBORAH CoteW
--- NOTE | 2020-02-05 15:44 | NURSING ---
NEPRO PATCHES PLACED TO BACK OF ARMANI ARMS AT 10:30AM.
--- NOTE | 2020-02-05 17:01 | NURSING ---
Left a message for son German and MENDOZAJuly to call back.
[2020-02-05] MEDS: QUEtiapine 25 MG Tablet PO (19:49)
[2020-02-05 19:55] VITALS: PULSE 76; RESP 16; O2SAT 99
[2020-02-06] MEDS: Bisacodyl 10 MG Suppository RECTAL (03:23)
[2020-02-06 06:00] VITALS: BP 158/88; PULSE 69; RESP 16; TEMP 36.8; O2SAT 99
[2020-02-06] MEDS: Acetaminophen 500 MG Tablet 1000 MG PO ×3 (06:45→21:21)
[2020-02-06] MEDS: CARBIDOPA/LEVODOPA CR 50/200 Tablet PO ×4 (06:45→21:21)
[2020-02-06] MEDS: Polyethylene Glycol 3350 17 GM PACKET PO (06:46)
[2020-02-06] MEDS: Menthol/Lanolin/Calamine/Znox 113 GM Tube 1 APPLIC TOPICAL ×2 (06:52→16:31)
[2020-02-06] MEDS: Senna/Docusate Sodium 1 Tablet 2 TABLET PO ×2 (07:49→16:31)
[2020-02-06] MEDS: Iron Polysaccharide Complex 150 MG CAPSULE PO (07:49)
--- NOTE | 2020-02-06 10:24 | NURSING ---
NEPRO PATCHES VERIFIED TO POST SHOULDERS.
[2020-02-06 10:25] VITALS: PULSE 79; RESP 18; O2SAT 98
[2020-02-06 14:18] VITALS: BP 128/87; PULSE 90; RESP 16; TEMP 36.6; O2SAT 97
--- NOTE | 2020-02-06 15:29 | NURSING ---
Resident and son, beti, notified of staff member positive for COVID-19.
--- NOTE | 2020-02-06 19:15 | NURSING ---
Walked past room pt noted to be sitting on side of bed, asked pt what she was doing, pt states I'm trying to find a place to stay for the night. Explained to pt where she was and that she was staying here, assisted to bed, alarm in place on bed.
[2020-02-06] MEDS: QUEtiapine 25 MG Tablet PO (21:21)
[2020-02-07 05:00] VITALS: BP 101/47; PULSE 55; RESP 18; TEMP 36.6; O2SAT 95
[2020-02-07] MEDS: Senna/Docusate Sodium 1 Tablet 2 TABLET PO ×2 (05:50→17:56)
[2020-02-07] MEDS: Acetaminophen 500 MG Tablet 1000 MG PO ×3 (05:50→21:08)
[2020-02-07] MEDS: CARBIDOPA/LEVODOPA CR 50/200 Tablet PO ×4 (05:50→21:09)
[2020-02-07] MEDS: Menthol/Lanolin/Calamine/Znox 113 GM Tube 1 APPLIC TOPICAL ×2 (05:51→17:58)
[2020-02-07] MEDS: Iron Polysaccharide Complex 150 MG CAPSULE PO (08:07)
[2020-02-07 14:19] VITALS: BP 105/58; PULSE 76; RESP 15; TEMP 36.8; O2SAT 99
[2020-02-07] MEDS: Zolpidem Tartrate 5 MG Tablet PO (21:07)
[2020-02-07] MEDS: QUEtiapine 25 MG Tablet PO (21:09)
[2020-02-08 05:00] VITALS: BP 110/60; PULSE 78; RESP 16; TEMP 36.8; O2SAT 95
[2020-02-08] MEDS: Senna/Docusate Sodium 1 Tablet 2 TABLET PO ×2 (06:52→17:00)
[2020-02-08] MEDS: ROTIGOTINE 4 MG 8 MG TD (06:52)
[2020-02-08] MEDS: Acetaminophen 500 MG Tablet 1000 MG PO ×3 (06:52→22:58)
[2020-02-08] MEDS: CARBIDOPA/LEVODOPA CR 50/200 Tablet PO ×4 (06:52→22:58)
[2020-02-08] MEDS: Menthol/Lanolin/Calamine/Znox 113 GM Tube 1 APPLIC TOPICAL ×2 (07:00→17:01)
[2020-02-08] MEDS: Iron Polysaccharide Complex 150 MG CAPSULE PO (08:12)
[2020-02-08 10:00] VITALS: PULSE 75; RESP 18
[2020-02-08 13:31] VITALS: BP 132/63; PULSE 73; RESP 14; TEMP 36.9; O2SAT 97
[2020-02-08] MEDS: QUEtiapine 25 MG Tablet PO (22:59)
[2020-02-09 05:00] VITALS: BP 124/57; PULSE 60; RESP 16; TEMP 36.8; O2SAT 98
[2020-02-09] MEDS: Acetaminophen 500 MG Tablet 1000 MG PO ×3 (05:11→21:34)
[2020-02-09] MEDS: ROTIGOTINE 4 MG 8 MG TD (05:11)
[2020-02-09] MEDS: CARBIDOPA/LEVODOPA CR 50/200 Tablet PO ×4 (05:12→21:44)
[2020-02-09] MEDS: Senna/Docusate Sodium 1 Tablet 2 TABLET PO (05:12)
[2020-02-09] MEDS: Menthol/Lanolin/Calamine/Znox 113 GM Tube 1 APPLIC TOPICAL (05:16)
[2020-02-09] MEDS: Iron Polysaccharide Complex 150 MG CAPSULE PO (08:36)
[2020-02-09 13:48] VITALS: BP 124/59; PULSE 74; RESP 14; TEMP 36.9; O2SAT 98
[2020-02-09] MEDS: QUEtiapine 25 MG Tablet PO (21:43)
[2020-02-09 21:48] VITALS: PULSE 76; RESP 16; O2SAT 96
[2020-02-10 05:00] VITALS: BP 126/63; PULSE 62; RESP 16; TEMP 37; O2SAT 98
[2020-02-10] MEDS: Senna/Docusate Sodium 1 Tablet 2 TABLET PO ×2 (06:06→16:33)
[2020-02-10] MEDS: CARBIDOPA/LEVODOPA CR 50/200 Tablet PO ×4 (06:07→22:17)
[2020-02-10] MEDS: ROTIGOTINE 4 MG 8 MG TD (06:07)
[2020-02-10] MEDS: Menthol/Lanolin/Calamine/Znox 113 GM Tube 1 APPLIC TOPICAL ×2 (06:07→16:33)
[2020-02-10] MEDS: Acetaminophen 500 MG Tablet 1000 MG PO ×3 (06:07→22:17)
[2020-02-10] MEDS: Polyethylene Glycol 3350 17 GM PACKET PO (06:08)
[2020-02-10] MEDS: Iron Polysaccharide Complex 150 MG CAPSULE PO (07:55)
[2020-02-10 09:18] LABS: Absolute Lymphocyte Count 1.13 X10^3/uL (0.83-4.51); Absolute Neutrophil Count 2.8 X10^3/uL (2.0-7.7); Basophil# 0.03 X10^3/uL; Basophil% 0.7 % (0-1); Eosinophil# 0.23 X10^3/uL; Eosinophils% 5.1 % (0-5); Hematocrit 36.1 % (37-47); Hemoglobin 11.1 g/dL (12.0-15.0); Lymphocyte # 1.13 X10^3/ul (4.0); Mean Corp Hgb Conc 30.7 g/dL (32-36); Mean Corpuscular Hgb 33.2 pg (27.0-32.0); Mean Corpuscular Volume 108.1 fL (81-99); Mean Platelet Vol. 9.3 fl (6.2-12.0); Monocyte# 0.36 X10^3/uL; NRBC Flagged by Analyzer 0 % (0-5); Neutrophil # 2.75 X10^3/uL (2.7-7.7); Neutrophil % 60.8 % (47-70); Platelet Count 311 K/mm3 (150-450); RBC Distribution Width SD 51.4 fl (35.1-43.9); Red Blood Count 3.34 M/mm3 (4.2-5.4); White Blood Count 4.5 K/mm3 (4.4-11.0)
[2020-02-10 09:37] LABS: Anion Gap 5 (5-15); BUN 19 mg/dL (7-18); BUN/Creat Ratio 28.3 RATIO (10-20); Calcium,Total 9.2 mg/dL (8.5-10.1); Chloride 106 mmol/L (98-107); Creatinine, Serum 0.67 mg/dL (0.55-1.02); EST Glomerular Filtration Rate 90 mL/min (>60); Est Glom Filt Rate - Afr Amer 109 mL/min (>60); Estimated Creatinine Clearance 36.47 ml/min; Glucose 119 mg/dL (74-106); Potassium 3.7 mmol/L (3.5-5.1); Sodium Level 137 mmol/L (136-145)
[2020-02-10 10:10] VITALS: PULSE 86; RESP 18; O2SAT 95
--- NOTE | 2020-02-10 11:15 | NURSING ---
PT FACE TIMING FAMILY AT THIS TIME.
[2020-02-10 14:47] VITALS: BP 159/71; PULSE 68; RESP 16; TEMP 36.5; O2SAT 100
--- NOTE | 2020-02-10 15:56 | NURSING ---
Nepro patches verified to james delts.
[2020-02-10] MEDS: QUEtiapine 25 MG Tablet PO (22:17)
[2020-02-11 05:00] VITALS: BP 135/64; PULSE 59; RESP 18; TEMP 36.6; O2SAT 94
[2020-02-11] MEDS: ROTIGOTINE 4 MG 8 MG TD (05:59)
[2020-02-11] MEDS: Menthol/Lanolin/Calamine/Znox 113 GM Tube 1 APPLIC TOPICAL ×2 (06:01→16:00)
[2020-02-11] MEDS: CARBIDOPA/LEVODOPA CR 50/200 Tablet PO ×4 (06:01→20:33)
[2020-02-11] MEDS: Senna/Docusate Sodium 1 Tablet 2 TABLET PO ×2 (06:01→16:00)
[2020-02-11] MEDS: Acetaminophen 500 MG Tablet 1000 MG PO ×3 (06:01→20:33)
[2020-02-11] MEDS: Iron Polysaccharide Complex 150 MG CAPSULE PO (07:39)
--- NOTE | 2020-02-11 10:36 | NURSING ---
NEPRO PATCHES VERIFIED TO PT ARMANI CHEST.
[2020-02-11 13:33] VITALS: BP 114/70; PULSE 82; RESP 16; TEMP 36.4; O2SAT 96
[2020-02-11] MEDS: QUEtiapine 25 MG Tablet PO (20:33)
[2020-02-12 05:00] VITALS: BP 126/70; PULSE 69; RESP 18; TEMP 37.2; O2SAT 95
[2020-02-12] MEDS: Polyethylene Glycol 3350 17 GM PACKET PO (05:09)
[2020-02-12] MEDS: ROTIGOTINE 4 MG 8 MG TD (05:10)
[2020-02-12] MEDS: CARBIDOPA/LEVODOPA CR 50/200 Tablet PO ×4 (05:10→21:27)
[2020-02-12] MEDS: Acetaminophen 500 MG Tablet 1000 MG PO ×3 (05:10→21:27)
[2020-02-12] MEDS: Senna/Docusate Sodium 1 Tablet 2 TABLET PO (05:10)
[2020-02-12] MEDS: Menthol/Lanolin/Calamine/Znox 113 GM Tube 1 APPLIC TOPICAL ×2 (05:11→17:22)
[2020-02-12] MEDS: Iron Polysaccharide Complex 150 MG CAPSULE PO (08:20)
[2020-02-12 09:10] VITALS: PULSE 75; RESP 16; O2SAT 99
[2020-02-12 13:40] LABS: Probe Check PASS; Specimen Processing Control PASS
--- NOTE | 2020-02-12 14:50 | CASEMGMT ---
Addendum entered by Lissett Stanley 02/12/20 16:19: [facility] can accept pt 02/13. Spoke with son about DC 02/13 whom is agreeable. son with transport pt about 1:30 pm. Referred to [facility]ST as [facility] cannot accept new referrals at this time. Original Note: Social Work Patient's COVID results came back negative. Left message with [facility] inquiring about DC date. Lissett Stanley, DEBORAH SOURCING ASSISTANT
[2020-02-12 16:00] VITALS: BP 109/66; PULSE 75; RESP 16; TEMP 36.7; O2SAT 96
[2020-02-12] MEDS: QUEtiapine 25 MG Tablet PO (21:27)
[2020-02-13] MEDS: Polyethylene Glycol 3350 17 GM PACKET PO (04:51)
[2020-02-13] MEDS: Senna/Docusate Sodium 1 Tablet 2 TABLET PO ×2 (04:52→16:52)
[2020-02-13] MEDS: Acetaminophen 500 MG Tablet 1000 MG PO ×3 (04:52→20:16)
[2020-02-13] MEDS: ROTIGOTINE 4 MG 8 MG TD (04:52)
[2020-02-13] MEDS: CARBIDOPA/LEVODOPA CR 50/200 Tablet PO ×4 (04:52→20:16)
[2020-02-13 05:00] VITALS: BP 112/52; PULSE 68; RESP 18; TEMP 36.7; O2SAT 99
[2020-02-13] MEDS: Menthol/Lanolin/Calamine/Znox 113 GM Tube 1 APPLIC TOPICAL ×2 (05:02→16:52)
[2020-02-13] MEDS: Iron Polysaccharide Complex 150 MG CAPSULE PO (07:41)
[2020-02-13 13:48] VITALS: BP 119/57; PULSE 85; RESP 16; TEMP 36.6; O2SAT 98
[2020-02-13] MEDS: QUEtiapine 25 MG Tablet PO (20:16)
[2020-02-13 20:18] VITALS: PULSE 70; RESP 16; O2SAT 99
[2020-02-14 05:50] VITALS: BP 154/74; PULSE 66; RESP 16; TEMP 36.4; O2SAT 99
[2020-02-14] MEDS: Acetaminophen 500 MG Tablet 1000 MG PO (06:09)
[2020-02-14] MEDS: CARBIDOPA/LEVODOPA CR 50/200 Tablet PO ×2 (06:09→11:37)
[2020-02-14] MEDS: Senna/Docusate Sodium 1 Tablet 2 TABLET PO (06:09)
[2020-02-14] MEDS: ROTIGOTINE 4 MG 8 MG TD (06:09)
[2020-02-14] MEDS: Menthol/Lanolin/Calamine/Znox 113 GM Tube 1 APPLIC TOPICAL (06:15)
[2020-02-14] MEDS: Polyethylene Glycol 3350 17 GM PACKET PO (06:16)
[2020-02-14] MEDS: Iron Polysaccharide Complex 150 MG CAPSULE PO (08:37)
[2020-02-14 08:42] VITALS: PULSE 76; RESP 16; O2SAT 97
--- NOTE | 2020-02-14 13:40 | NURSING ---
Pt discharged at this time.
[2020-02-14 13:53] VITALS: BP 105/64; PULSE 76; RESP 16; TEMP 36.6; O2SAT 97
== END 2020-02-14 13:40 | disposition home health service (06) | DRG 560 ==
PROVIDERS: Admitting Provider Family Medicine Geriatric Medicine; PCP Family Medicine; Visit Provider Family Medicine Geriatric Medicine
DX: S72.012D Unspecified intracapsular fracture of left femur, subsequent encounter for closed fracture with routine healing (principal); F03.91 Unspecified dementia, unspecified severity, with behavioral disturbance; W19.XXXD Unspecified fall, subsequent encounter; Z23 Encounter for immunization; G20 Parkinson's disease; E78.5 Hyperlipidemia, unspecified; I10 Essential (primary) hypertension; I25.10 Atherosclerotic heart disease of native coronary artery without angina pectoris
CPT/HCPCS: 36415; 71046; 74018; 80048; 81001; 82728; 83540; 83550; 85014; 85018; 85025; 87086; 87426; 87635; 92507; 92523; 92526; 97110; 97116; 97161; 97166; 97530; 97535; 97802; G0009; 90670; U0002; U0003

== ENCOUNTER 2020-03-18 23:51 | Emergency (ER) | payer MEDICARE, BC, SELFPAY ==
[2020-03-18 23:51] VITALS: BMI 20.9
[2020-03-18 23:54] VITALS: BP 149/72; PULSE 64; RESP 16; TEMP 36.8; O2SAT 100; BMI 21.4
--- NOTE | 2020-03-18 23:59 | CT_ITS ---
STUDY: CT LUMBAR SPINE WITHOUT CONTRAST REASON FOR EXAM: Female, 79 years old. FELL TONIGHT,HEAD AND BACK PAIN -- HX:CAD,DEMENTIA,PARKINSON''S RADIATION DOSAGE (If Supplied By Facility): CTDIvol = ( 15.29 ) mGy, DLP = ( 406.06 ) mGycm TECHNIQUE: The patient was scanned in a multi detector CT scanner. High resolution transaxial imaging was performed. Images were obtained from T10-11 to S2. Sagittal and coronal images were reconstructed. Individualized dose optimization techniques were used for this CT. COMPARISON: None FINDINGS: Normal lumbar lordosis. There is severe dextroscoliosis of the lower spine, centered at the L4 level and levoscoliosis of the upper lumbar and lower thoracic spine, centered at the T12-L1 level. Normal vertebrae of the lumbar spine. L1-2: Spondylosis. Disc space narrowing with vacuum phenomenon. Degenerative changes bilateral facet joints. Normal central canal and bilateral lateral recesses. Normal bilateral intervertebral neural foramina. L2-3: Spondylosis. Disc space narrowing with vacuum phenomenon. Degenerative changes bilateral facet joints. Mild stenosis central canal and bilateral lateral recesses. Normal bilateral intervertebral neural foramina. L3-4: Spondylosis. Disc space narrowing. Degenerative changes bilateral facet joints. Severe spinal stenosis and bilateral lateral recess stenosis.. Normal right and moderate narrowing left intervertebral neural foramina. L4-5: Spondylosis. Disc space narrowing with vacuum phenomenon. Degenerative changes bilateral facet joints. Severe spinal stenosis and bilateral lateral recess stenosis.. Normal right and moderate narrowing left intervertebral neural foramina. L5-S1: Spondylosis. Disc space effacement. Degenerative changes bilateral facet joints. Severe spinal stenosis and bilateral lateral recess stenosis.. Moderate stenosis bilateral intervertebral neural foramina. Normal visualized paraspinous soft tissue structures. CT/Spine Lumbar without Contrast IMPRESSION: Multilevel degenerative changes, as described above. S-shaped thoracolumbar scoliosis. No demonstrated fracture or subluxation. Electronically Signed: Jorge Luis Rodriguez MD at 1:32 EST , Service support ,
--- NOTE | 2020-03-19 | CT_ITS ---
STUDY: CT BRAIN WITHOUT CONTRAST REASON FOR EXAM: Female, 79 years old. FELL TONIGHT,HEAD AND BACK PAIN -- HX:CAD,DEMENTIA,PARKINSON''S RADIATION DOSAGE (If Supplied By Facility): CTDIvol = ( 44.99 ) mGy, DLP = ( 829.85 ) mGycm TECHNIQUE: Transaxial CT imaging of the brain was performed without administration of intravenous contrast material. Individualized dose optimization techniques were used for this CT. COMPARISON: 01/16/2020. FINDINGS: Normal soft tissue structures. Normal calvarium. There is mild cerebral atrophy with widening of the extra-axial spaces and ventricular dilatation. There are areas of decreased attenuation within the white matter tracts of the supratentorial brain, consistent with microvascular disease changes. Normal basal ganglia and thalami. Normal brainstem. Normal cerebellum. There is atherosclerotic calcification of the cavernous carotid arteries. There is no intracranial hemorrhage. There are no findings of an acute ischemic infarction. Normal visualized paranasal sinuses. CT/Brain/Head without Contrast IMPRESSION: Chronic involutional changes of the brain. No demonstrated acute intracranial process. Electronically Signed: Jorge Luis Rodriguez MD at 1:20 EST , Service support ,
--- NOTE | 2020-03-19 | RAD_ITS ---
STUDY: X-RAY - LEFT SHOULDER REASON FOR EXAM: Female, 79 years old. s/p fall -- c/o some pain in lt shoulder, lt hip and low back TECHNIQUE: 6 view(s) of the shoulder. Left humerus is also included on the images. COMPARISON: None. FINDINGS: Normal glenohumeral articulation. Normal acromioclavicular joint. Normal acromion. There is a long metallic internal fixation plate overlying the lateral aspect of the humerus, extending from the level of the surgical neck p to the level of the distal humeral shaft. There are also 11 metallic fixation screws. Hardware appears to be intact with no evidence for loosening. Otherwise normal humeral head and visualized humerus. There is no currently visualized fracture line or fracture deformity.. The soft tissue structures are unremarkable. Normal visualized pulmonary apex. RAD/Shoulder min 2 Views IMPRESSION: Intact fixation hardware overlying the humerus. No demonstrated acute fracture, dislocation, or destructive osseous lesion. Electronically Signed: Jorge Luis Rodriguez MD at 0:57 EST , Service support ,
--- NOTE | 2020-03-19 00:01 | RAD_ITS ---
STUDY: X-RAY - PELVIS AND LEFT HIP REASON FOR EXAM: Female, 79 years old. s/p fall -- c/o some pain in lt shoulder, lt hip and low back TECHNIQUE: 3 views of the pelvis and hip. COMPARISON: X-ray pelvis and left hip 01/17/2020. FINDINGS: There is a non-specific bowel gas pattern. Normal visualized soft tissue structures. Normal bilateral iliac wings, sacroiliac joints and visualized sacrum. Normal bilateral superior and inferior pubic rami. Normal pubic symphysis. Normal bilateral ischial tuberosities. The patient is status post left hemiarthroplasty with placement of a bipolar femoral prosthesis. Hardware is intact with no evidence for loosening. Normal acetabulum. No demonstrated hip joint dislocation.. RAD/HIP, UNI W/ Pelvis 2-3 Views IMPRESSION: Intact left hip prosthesis. No demonstrated fracture, dislocation, or destructive osseous lesion. Electronically Signed: Jorge Luis Rodriguez MD at 0:52 EST , Service support ,
--- NOTE | 2020-03-19 01:47 | ED.VIS.GEN ---
History of Present Illness Chief Complaint: Fall Informant: Patient Narrative: 79-year-old female with past medical history of Parkinson's disease presents with concern for fall. States that she lost her balance and fell striking her left hip and shoulder. States that she struck her head without loss of consciousness. Patient states that she frequently falls given her Parkinson's. Denies any chest pain, shortness of breath, nausea, vomiting, headache, vision change, lightheadedness, dizziness. Patient is not on anticoagulation. Past Medical History - Allergies and Home Meds Allergies/Adverse Reactions: Allergies cyclobenzaprine [From Flexeril] Allergy (Verified 03/18/20 23:58) NEEDS FOLLOW-UP oxycodone Allergy (Verified 03/18/20 23:58) NEEDS FOLLOW-UP propoxyphene [From Darvon] Allergy (Verified 03/18/20 23:58) NEEDS FOLLOW-UP tramadol Adverse Reaction (Verified 03/18/20 23:58) NEEDS FOLLOW-UP Confusion per patient Primary Care Physician: Tiburcio Rogers MD [Primary Care Provider] - Prior records reviewed: Yes Past Medical History: - - Parkinsons Surgical History: cholecystectomy, total hip arthroplasty, total knee arthroplasty, - Lives: Assisted Smoking Status: Never smoker - Family History Maternal Family History: Reports: No pertinent history Paternal Family History: Reports: No pertinent history Review of Systems General: Denies: Chills, Fever, Sweats Eyes: Denies: Visual changes - bilaterally, Diplopia ENT: Denies: Rhinorrhea, Sore throat Cardiovascular: Denies: Chest pain, Palpitations Respiratory: Denies: Dyspnea, Cough, Dyspnea on exertion Gastrointestinal: Denies: Abdominal pain, Nausea, Vomiting, Diarrhea, Melena, Hematochezia Genitourinary: Denies: Dysuria, Hematuria, Frequency Musculoskeletal: Reports: Arthralgias. Denies: Back pain, Extremity Pain Skin: Denies: Rash, Wounds Neurological: Denies: Headache, Weakness, Numbness Physical Exam Vital Signs/Narrative: Vital Signs Temp Pulse Resp BP Pulse Ox 03/18/20 23:54 98.3 F 64 16 149/72 H 100 General: Well nourished, Well developed, No Acute Distress Head: Normocephalic, Atraumatic Eyes: Perrl, EOMI ENT: Moist mucous membranes, No rhinorrhea Neck: Supple, Nontender Cardiovascular: Regular rate, Regular rhythm, No murmurs Respiratory: No distress, CTA bilaterally, Chest nontender Abdomen: Soft, Nontender, Nondistended, Normal bowel sounds Back: Normal Inspection, - - TTP lumbar area including midline. Extremities: No edema, - - TTP left shoulder as well as left hip. Full range of motion. Strong and palpable pulses. Skin: Normal color, No rash Neurological: Alert, Oriented x3, Cranial nerves II-XII grossly intact, Normal Strength, Normal Sensation Psychological: Normal affect, Normal Mood Diagnostic/Tx/Re-eval Clinical Impression(s) from Imaging Studies Lumbar Spine CT 03/18/20 23:59 IMPRESSION: Multilevel degenerative changes, as described above. S-shaped thoracolumbar scoliosis. No demonstrated fracture or subluxation. Electronically Signed: Jorge Luis Rodriguez MD at 1:32 EST , Service support , Brain CT 03/19/20 00:00 IMPRESSION: Chronic involutional changes of the brain. No demonstrated acute intracranial process. Electronically Signed: Jorge Luis Rodriguez MD at 1:20 EST , Service support , Shoulder X-Ray 03/19/20 00:00 IMPRESSION: Intact fixation hardware overlying the humerus. No demonstrated acute fracture, dislocation, or destructive osseous lesion. Electronically Signed: Jorge Luis Rodriguez MD at 0:57 EST , Service support , Hip/Pelvis X-Ray 03/19/20 00:01 IMPRESSION: Intact left hip prosthesis. No demonstrated fracture, dislocation, or destructive osseous lesion. Electronically Signed: Jorge Luis Rodriguez MD at 0:52 EST , Service support , - Medical Decision Making Appears well and nontoxic. No signs of serious head trauma. CT brain and lumbar spine negative. X-ray of the left shoulder and hip are negative for acute process. Patient will be discharged back to nursing facility. Discharged home in stable condition. Impression: 1. Closed head injury 2. Left shoulder contusion 3. Left hip contusion 4. Acute lumbar back pain ED Disposition - Plan for ED Patient: Disposition: Home or Assisted Living Instructions: ED Mechanical Fall Referrals: Tiburcio Rogers MD [Primary Care Provider] - 1 Day
[2020-03-19 04:08] VITALS: RESP 18
== END 2020-03-19 04:34 | disposition home or self-care (01) ==
PROVIDERS: Emergency Provider Emergency Medicine; PCP Family Medicine
DX: S40.012A Contusion of left shoulder, initial encounter (principal); S70.02XA Contusion of left hip, initial encounter; M54.5 Low back pain; S09.90XA Unspecified injury of head, initial encounter; R29.6 Repeated falls; G20 Parkinson's disease; Z91.81 History of falling; W18.30XA Fall on same level, unspecified, initial encounter; Y93.89 Activity, other specified; Y92.009 Unspecified place in unspecified non-institutional (private) residence as the place of occurrence of the external cause; Y99.8 Other external cause status
CPT/HCPCS: 70450; 72131; 73030; 73502; 99284

== ENCOUNTER → 2020-03-23 15:00 | Outpatient (REF) | payer MEDICARE, BC, SELFPAY ==
[2020-03-18 23:54] VITALS: BMI 21.4
[2020-03-23 16:01] LABS: Color, Urine Yellow (Yellow); Glucose, Dipstick Normal (Normal); Ketone-Dipstick 15 mg/dl (Negative); Leukocyte Esterase-Dipstick 500 /ul (Negative); Nitrite-Dipstick Positive (Negative); Occult Blood-Urine 10 /ul (Negative); Protein-Dipstick 30 mg/dl (Negative); Specific Gravity, Urine 1.015 (1.002-1.030); Urine Bilirubin Dipstick Negative (Negative); Urine Clarity Cloudy (Clear); Urine Urobilinogen Normal (Normal)
[2020-03-23 16:26] LABS: Anion Gap 3 (5-15); BUN 20 mg/dL (7-18); BUN/Creat Ratio 34.7 RATIO (10-20); Calcium,Total 8.9 mg/dL (8.5-10.1); Chloride 104 mmol/L (98-107); Creatinine, Serum 0.58 mg/dL (0.55-1.02); EST Glomerular Filtration Rate 107 mL/min (>60); Est Glom Filt Rate - Afr Amer 129 mL/min (>60); Glucose 112 mg/dL (74-106); Potassium 4.6 mmol/L (3.5-5.1); Sodium Level 135 mmol/L (136-145)
== END ==
PROVIDERS: PCP Family Medicine; Referring Provider Family Medicine; Visit Provider Family Medicine
DX: N39.0 Urinary tract infection, site not specified (principal); R53.83 Other fatigue
CPT/HCPCS: 36415; 80048; 81002; 87086; 87088; 87186

== ENCOUNTER → 2020-04-16 08:50 | Outpatient (REF) | payer MEDICARE, BC, SELFPAY ==
[2020-03-18 23:54] VITALS: BMI 21.4
[2020-04-17 09:07] LABS: Color, Urine Yellow (Yellow); Glucose, Dipstick Normal (Normal); Ketone-Dipstick 15 mg/dl (Negative); Leukocyte Esterase-Dipstick 500 /ul (Negative); Nitrite-Dipstick Positive (Negative); Occult Blood-Urine 10 /ul (Negative); Protein-Dipstick 30 mg/dl (Negative); Specific Gravity, Urine 1.025 (1.002-1.030); Urine Bilirubin Dipstick Negative (Negative); Urine Clarity Turbid (Clear); Urine Urobilinogen Normal (Normal)
== END ==
PROVIDERS: PCP Family Medicine; Referring Provider Family Medicine; Visit Provider Family Medicine
DX: R35.0 Frequency of micturition (principal)
CPT/HCPCS: 81002; 87086; 87088; 87186

== ENCOUNTER → 2020-06-19 15:15 | Outpatient (REF) | payer MEDICARE, BC, SELFPAY ==
[2020-06-20 07:50] LABS: Bacteria 0 SEEN /hpf (None Seen); Mucous, Urine 0 SEEN /hpf (<or=2+); Red Blood Cells-Urine 0 SEEN /hpf (0-5); Squamous Epithelial Cells - UA 0 SEEN /hpf (5-10); White Blood Cells 0 SEEN /hpf (0-5)
[2020-06-20 08:05] LABS: Color, Urine Straw (Yellow); Glucose, Dipstick Normal (Normal); Ketone-Dipstick 5 mg/dl (Negative); Leukocyte Esterase-Dipstick Negative /ul (Negative); Nitrite-Dipstick Negative (Negative); Occult Blood-Urine Negative /ul (Negative); Protein-Dipstick Negative (Negative); Urine Bilirubin Dipstick Negative (Negative); Urine Clarity Sl. Cloudy (Clear); Urine Urobilinogen Normal (Normal)
[2020-06-20 08:11] LABS: Calcium Oxalate Crystals Ur 2+ /hpf (<or=2+)
== END ==
PROVIDERS: PCP Family Medicine; Visit Provider Family Medicine
DX: N39.0 Urinary tract infection, site not specified (principal); R41.0 Disorientation, unspecified
CPT/HCPCS: 81001; 87086; 87088

== ENCOUNTER → 2020-07-03 11:30 | Outpatient (REF) | payer MEDICARE, BC, SELFPAY ==
[2020-07-03 12:03] LABS: Bacteria 0 SEEN /hpf (None Seen); Mucous, Urine 0 SEEN /hpf (<or=2+); Red Blood Cells-Urine 0 SEEN /hpf (0-5); Squamous Epithelial Cells - UA 0 SEEN /hpf (5-10); White Blood Cells 0 SEEN /hpf (0-5)
[2020-07-03 12:21] LABS: Color, Urine Yellow (Yellow); Glucose, Dipstick Normal (Normal); Ketone-Dipstick Negative (Negative); Leukocyte Esterase-Dipstick Negative /ul (Negative); Nitrite-Dipstick Negative (Negative); Occult Blood-Urine Negative /ul (Negative); Protein-Dipstick Negative (Negative); Urine Bilirubin Dipstick Negative (Negative); Urine Clarity Clear (Clear); Urine Urobilinogen Normal (Normal)
== END ==
PROVIDERS: PCP Family Medicine; Visit Provider Family Medicine
DX: R44.3 Hallucinations, unspecified (principal); R41.0 Disorientation, unspecified
CPT/HCPCS: 81001; 87086; 87088

== ENCOUNTER → 2020-07-04 05:00 | Outpatient (REF) | payer MEDICARE, BC, SELFPAY ==
[2020-07-04 07:28] LABS: Absolute Lymphocyte Count 1.25 X10^3/uL (0.83-4.51); Absolute Neutrophil Count 1.9 X10^3/uL (2.0-7.7); Basophil# 0.03 X10^3/uL; Basophil% 0.8 % (0-1); Eosinophil# 0.17 X10^3/uL; Eosinophils% 4.4 % (0-5); Hematocrit 34.7 % (37-47); Hemoglobin 11.4 g/dL (12.0-15.0); Lymphocyte # 1.25 X10^3/ul (4.0); Lymphocyte % 32.1 % (19-41); Mean Corp Hgb Conc 32.9 g/dL (32-36); Mean Corpuscular Hgb 32.1 pg (27.0-32.0); Mean Corpuscular Volume 97.7 fL (81-99); Mean Platelet Vol. 9.3 fl (6.2-12.0); Monocyte# 0.49 X10^3/uL; Monocyte% 12.6 % (0-10); NRBC Flagged by Analyzer 0 % (0-5); Neutrophil # 1.93 X10^3/uL (2.7-7.7); Neutrophil % 49.6 % (47-70); Platelet Count 273 K/mm3 (150-450); RBC Distribution Width CV 12.9 % (11.6-14.6); RBC Distribution Width SD 46.4 fl (35.1-43.9); Red Blood Count 3.55 M/mm3 (4.2-5.4); White Blood Count 3.9 K/mm3 (4.4-11.0)
[2020-07-04 08:01] LABS: AST(SGOT) 18 U/L (15-37); Alanine Aminotransfer ALT/SGPT 8 U/L (13-56); Albumin, Serum 3.4 g/dL (3.2-5.0); Alkaline Phosphatase 99 U/L (45-117); Anion Gap 3 (5-15); BUN 17 mg/dL (7-18); BUN/Creat Ratio 28.2 RATIO (10-20); Calcium,Total 8.9 mg/dL (8.5-10.1); Chloride 106 mmol/L (98-107); EST Glomerular Filtration Rate 102 mL/min (>60); Est Glom Filt Rate - Afr Amer 123 mL/min (>60); Globulin 3.3 g/dL (2.2-4.2); Glucose 69 mg/dL (74-106); Protein, Total 6.7 g/dL (6.4-8.2); Sodium Level 136 mmol/L (136-145)
== END ==
PROVIDERS: PCP Family Medicine; Visit Provider Family Medicine
DX: R44.3 Hallucinations, unspecified (principal); R41.0 Disorientation, unspecified; Z79.899 Other long term (current) drug therapy
CPT/HCPCS: 36415; 80053; 85025

== ENCOUNTER → 2020-07-15 05:00 | Outpatient (REF) | payer MEDICARE, BC, SELFPAY ==
[2020-07-11 13:12] VITALS: BMI 21.4
[2020-07-15 07:55] LABS: Absolute Neutrophil Count 1.9 X10^3/uL (2.0-7.7); Basophil# 0.02 X10^3/uL; Basophil% 0.6 % (0-1); Eosinophil# 0.19 X10^3/uL; Eosinophils% 5.3 % (0-5); Hematocrit 36.7 % (37-47); Hemoglobin 11.8 g/dL (12.0-15.0); Mean Corp Hgb Conc 32.2 g/dL (32-36); Mean Corpuscular Hgb 31.9 pg (27.0-32.0); Mean Corpuscular Volume 99.2 fL (81-99); Mean Platelet Vol. 9.2 fl (6.2-12.0); Monocyte# 0.45 X10^3/uL; Monocyte% 12.6 % (0-10); NRBC Flagged by Analyzer 0 % (0-5); Neutrophil % 53.2 % (47-70); Platelet Count 281 K/mm3 (150-450); RBC Distribution Width CV 13.2 % (11.6-14.6); White Blood Count 3.6 K/mm3 (4.4-11.0)
== END ==
PROVIDERS: PCP Family Medicine; Referring Provider Family Medicine; Visit Provider Family Medicine
DX: D64.9 Anemia, unspecified (principal); I82.409 Acute embolism and thrombosis of unspecified deep veins of unspecified lower extremity; E78.5 Hyperlipidemia, unspecified; Z79.899 Other long term (current) drug therapy
CPT/HCPCS: 36415; 85025

== ENCOUNTER → 2020-08-20 08:56 | Outpatient (CLI) | payer MEDICARE, BC, SELFPAY ==
[2020-08-20 10:39] LABS: ALB/GLOB Ratio 1.1 RATIO (0.9-2.4); AST(SGOT) 18 U/L (15-37); Alanine Aminotransfer ALT/SGPT 9 U/L (13-56); Albumin, Serum 3.8 g/dL (3.2-5.0); Alkaline Phosphatase 124 U/L (45-117); Anion Gap 7 (5-15); BUN 22 mg/dL (7-18); BUN/Creat Ratio 29.7 RATIO (10-20); Calcium,Total 9.1 mg/dL (8.5-10.1); Chloride 103 mmol/L (98-107); Creatinine, Serum 0.74 mg/dL (0.55-1.02); EST Glomerular Filtration Rate 80 mL/min (>60); Est Glom Filt Rate - Afr Amer 97 mL/min (>60); Globulin 3.4 g/dL (2.2-4.2); Glucose 83 mg/dL (74-106); Potassium 3.9 mmol/L (3.5-5.1); Protein, Total 7.2 g/dL (6.4-8.2); Sodium Level 138 mmol/L (136-145)
== END ==
PROVIDERS: PCP Family Medicine; Referring Provider Family Medicine; Visit Provider Family Medicine
DX: M79.89 Other specified soft tissue disorders (principal)
CPT/HCPCS: 36415; 80053

== ENCOUNTER → 2020-09-04 05:00 | Outpatient (REF) | payer MEDICARE, BC, SELFPAY ==
[2020-07-11 13:12] VITALS: BMI 21.4
[2020-09-04 08:36] LABS: Vitamin B12 358 pg/mL (211-911)
[2020-09-04 09:26] LABS: Thyroid Stim Hormone (TSH) 2.27 uIU/mL (0.358-3.74)
== END ==
PROVIDERS: PCP Family Medicine
DX: Z79.899 Other long term (current) drug therapy (principal)
CPT/HCPCS: 36415; 82607; 82746; 84443

== ENCOUNTER 2020-11-28 14:40 | Emergency (ER) | payer MEDICARE, BC, SELFPAY ==
[2020-11-28 14:44] VITALS: BP 112/64; PULSE 80; RESP 18; TEMP 36.4; O2SAT 99; BMI 18.5
[2020-11-28 14:49] VITALS: O2SAT 99
--- NOTE | 2020-11-28 14:54 | CT_ITS ---
STUDY: CT BRAIN WITHOUT CONTRAST REASON FOR EXAM: Female, 80 years old. Fall RADIATION DOSAGE (If Supplied By Facility): CTDIvol = ( 44.99 ) mGy, DLP = ( 812.98 ) mGycm TECHNIQUE: Transaxial CT imaging of the brain was performed without administration of intravenous contrast material. Individualized dose optimization techniques were used for this CT. COMPARISON: Comparison is made with prior study dated 03/19/2020. FINDINGS: Normal soft tissue structures. Normal calvarium. There is mild cerebral atrophy with widening of the extra-axial spaces and ventricular dilatation. There are areas of decreased attenuation within the white matter tracts of the supratentorial brain, consistent with microvascular disease changes. Normal basal ganglia and thalami. Normal brainstem. There is mild cerebellar atrophy. There is no intracranial hemorrhage. There are no findings of an acute ischemic infarction. Atherosclerotic calcification of the cavernous portions of the internal carotid arteries bilaterally. Normal visualized paranasal sinuses. CT/Brain/Head without Contrast IMPRESSION: Chronic involutional changes of the brain. Electronically Signed: Spenser Lei MD at 15:29 EDT , Service support ,
--- NOTE | 2020-11-28 14:56 | ED.VIS.FALL ---
HPI HPI - Fall History of Present Illness Chief Complaint: Fall Informant: patient Occured/Mechanism Occurred: Today Pain/Injury Pain Location: head Narrative Narrative: Patient presents after fall from wheelchair. Patient reportedly slid out of her wheelchair and struck the back of her head against a door. No loss of consciousness. She is not on anticoagulants. Patient states that she had a cord that was wrapping around her ankles and causing pain. She denies any pain at this present time. 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 Constipation, unspecified Dysphagia, unspecified Gastro-esophageal reflux disease without esophagitis Iron deficiency anemia Osteoporosis with current pathological fracture Other age-related cataract Other specified soft tissue disorders Pain in left hip Peripheral vascular disease, unspecified Psychotic disorder with hallucinations due to known physiological condition Scoliosis, unspecified Shortness of breath Unspecified macular degeneration Unspecified osteoarthritis, unspecified site Urinary tract infection, site not specified Home Medications cholecalciferol (vitamin D3) 1,000 unit PO DAILY 11/07/18 [History Last Taken Unknown] quetiapine 25 mg PO QHS 01/16/20 [History Last Taken 01/18/20 22:00] nifedipine 30 mg tablet,extended release 30 mg PO DAILY 08/05/20 [History Last Taken Unknown] acetaminophen 325 mg capsule 650 mg PO BID PRN cap 09/03/20 [History Last Taken Unknown] acetaminophen 325 mg capsule 650 mg PO QHS cap 09/03/20 [History Last Taken Unknown] buspirone 5 mg tablet 5 mg PO BID #60 tab 09/03/20 [Rx Last Taken Unknown] pediatric multivitamin no.76 1 tab PO DAILY 09/03/20 [History Last Taken Unknown] quetiapine 50 mg tablet 50 mg PO QHS tab 09/03/20 [History Last Taken Unknown] rotigotine 6 mg/24 hour transdermal 24 hour patch 6 mg TRANSDERMAL DAILY #30 ea 09/03/20 [Rx Last Taken Unknown] acetazolamide 500 mg capsule,extended release 500 mg PO DAILY cap 11/04/20 [History Last Taken Unknown] carbidopa 25 mg-levodopa 100 mg tablet 1 tab PO .QID tab 11/04/20 [History Last Taken Unknown] Allergy/AdvReac Type Severity Reaction Status Date / Time cyclobenzaprine Allergy NEEDS Verified 11/28/20 14:42 [From Flexeril] FOLLOW-UP oxycodone Allergy NEEDS Verified 11/28/20 14:42 FOLLOW-UP propoxyphene [From Darvon] Allergy NEEDS Verified 11/28/20 14:42 FOLLOW-UP tramadol AdvReac NEEDS Verified 11/28/20 14:42 FOLLOW-UP Social History Smoking Status: Never smoker alcohol intake: never substance use type: unknown ROS ROS ED Constitutional Constitutional ED: Denies chills or fever(s) Eyes Eyes: Denies change in vision ENT ENT ED: Denies sore throat Cardiovascular Cardiovascular: Denies chest pain Respiratory/Chest Respiratory/Chest: Denies cough or dyspnea Gastrointestinal Gastrointestinal: Denies abdominal pain, diarrhea, nausea or vomiting Genitourinary Genitourinary ED: Denies dysuria Musculoskeletal Musculoskeletal: Denies back pain Integumentary Denies rash Neurologic Neurologic: Denies headache(s) Allergic/Immunologic Allergic/Immunologic ED: Denies urticaria EXAM Physical Exam Const Vital Signs: 11/28/20 14:44 11/28/20 14:49 Temperature 97.5 F L Temperature Source Oral Pulse Rate 80 Respiratory Rate 18 Respiratory Effort Normal Non-Labored Respiratory Depth Normal Respiratory Pattern Normal Blood Pressure 112/64 Blood Pressure Mean 80 Pulse Ox 99 99 Oxygen Delivery Method Room Air Room Air Positive well nourished and well developed General Appearance ED: well developed HEENT Reports normocephalic atraumatic Eyes PERRL and EOMs intact bilaterally Neck Neck Narrative: No C-spine tenderness. Chest Wall inspection of chest normal and palpation of chest normal Resp normal respiratory effort and clear to auscultation bilaterally Cardio regular rate and regular rhythm GI non-tender Palpation: soft Extremity normal to inspection Extremity Narrative: No ankle tenderness on exam. Neuro oriented x3 Neuro Narrative: No focal neuro deficits. Sensorium / Orientation: alert Skin Lesions: no lesions Rashes: no rashes MDM MDM MDM Narrative Medical decision making narrative: CT scan of the head is obtained. Radiography Diagnostic Testing: Radiology Impression Brain CT 11/28/20 14:54 IMPRESSION: Chronic involutional changes of the brain. Electronically Signed: Spenser Lei MD at 15:29 EDT , Service support , Treatment and Re-Evaluation Comments:: CT scan reveals no acute findings. On repeat evaluation patient resting comfortably. She reports having follow-up appointment scheduled with neurology later this month. Return instructions are provided. Discharge Plan Triage Chief Complaint: Fall ED Provider: Dana Almazan Dx/Rx/DC Orders Clinical Impression: Closed head injury Instructions: ED Head Injury (Adult) Prescriptions: No Action acetaminophen 325 mg capsule 650 mg PO QHS RF: 0 acetaminophen 325 mg capsule 650 mg PO BID PRN (Reason: Pain) RF: 0 Flintstones Complete Tablet,Chewable 1 tab PO DAILY RF: 0 quetiapine 50 mg tablet 50 mg PO QHS RF: 0 buspirone 5 mg tablet 5 mg PO BID Qty: 60 RF: 2 Neupro 6 mg/24 hour patch 24 hour 6 mg transdermal DAILY Qty: 30 RF: 2 nifedipine 30 mg tablet extended release 30 mg PO DAILY RF: 0 acetazolamide 500 mg capsule, extended release 500 mg PO DAILY RF: 0 carbidopa-levodopa [Sinemet] 25-100 mg tablet 1 tab PO .QID RF: 0 cholecalciferol (vitamin D3) 1,000 UNIT tablet 1,000 unit PO DAILY RF: 0 quetiapine 25 MG tablet 25 mg PO QHS RF: 0 Primary Care Provider: Tiburcio Rogers Referrals: Tiburcio Rogers MD [Primary Care Provider] - 1 Week if not improving Disposition Disposition: Assisted Living Discharge Location: [facility]
--- NOTE | 2020-11-28 16:01 | ED.RN ---
Report called to Arelis tamayo Collyer.
== END 2020-11-28 16:44 | disposition home or self-care (01) ==
PROVIDERS: Emergency Provider Emergency Medicine; PCP Family Medicine
DX: S09.90XA Unspecified injury of head, initial encounter (principal); I25.10 Atherosclerotic heart disease of native coronary artery without angina pectoris; W05.0XXA Fall from non-moving wheelchair, initial encounter; W22.09XA Striking against other stationary object, initial encounter; Z79.899 Other long term (current) drug therapy
CPT/HCPCS: 70450; 99284

== ENCOUNTER → 2021-01-13 05:00 | Outpatient (REF) | payer MEDICARE, BC, SELFPAY ==
[2021-01-13 07:55] LABS: Absolute Lymphocyte Count 1.58 X10^3/uL (0.83-4.51); Absolute Neutrophil Count 2.1 X10^3/uL (2.0-7.7); Basophil# 0.05 X10^3/uL; Basophil% 1.1 % (0-1); Eosinophils% 8.6 % (0-5); Hematocrit 38.2 % (37-47); Hemoglobin 11.9 g/dL (12.0-15.0); Lymphocyte # 1.58 X10^3/ul (0.83-4.51); Lymphocyte % 34.1 % (19-41); Mean Corp Hgb Conc 31.2 g/dL (32-36); Mean Corpuscular Volume 105.8 fL (81-99); Mean Platelet Vol. 9.3 fl (6.2-12.0); Monocyte# 0.48 X10^3/uL; Monocyte% 10.4 % (0-10); NRBC Flagged by Analyzer 0 % (0-5); Neutrophil # 2.11 X10^3/uL (2.7-7.7); Neutrophil % 45.6 % (47-70); Platelet Count 277 K/mm3 (150-450); RBC Distribution Width CV 12.7 % (11.6-14.6); RBC Distribution Width SD 50.1 fl (35.1-43.9); Red Blood Count 3.61 M/mm3 (4.2-5.4); White Blood Count 4.6 K/mm3 (4.4-11.0)
== END ==
PROVIDERS: PCP Family Medicine; Visit Provider Family Medicine
DX: E78.5 Hyperlipidemia, unspecified (principal); I73.9 Peripheral vascular disease, unspecified; G20 Parkinson's disease; Z79.899 Other long term (current) drug therapy
CPT/HCPCS: 36415; 85025